=== PATIENT | male | born 1950 | race Caucasian/White ===

== ENCOUNTER 2018-05-10 04:16 | Inpatient (IN) | payer MEDICARE, OTHER ==
[~2018-05-10] VITALS: Ht 190.5 cm; Wt 89.0 kg
[~2018-05-10 04:16] MED LIST: OMEP20TA63 PO
[2018-05-10] MEDS ORDERED: ONDANSETRON PF 4 MG/2 ML VIAL. ONE (04:42)
[2018-05-10 05:04] LABS: BASO # 0.1 x10^3/uL (0.0-0.2); BASO % 0 % (0-3); EOS % 0 % (0-3); HEMATOCRIT 44.7 % (39.0-53.0); HEMOGLOBIN 15.6 g/dL (13.0-17.5); LYMPH # 1.2 x10^3/uL (1.0-4.8); LYMPH % 8 % (24-48); MEAN CORPUSCULAR HEMOGLOBIN 31 pg (25-35); MEAN CORPUSCULAR HGB CONC 35 g/dL (31-37); MEAN CORPUSCULAR VOLUME 90 fL (79-100); MONO # 0.6 x10^3/uL (0.0-1.1); MONO % 4 % (0-9); NEUT # 13.5 x10^3uL (1.8-7.7); NEUT % 88 % (31-73); PLATELET COUNT 293 x10^3/uL (140-400); RED BLOOD COUNT 4.99 x10^6/uL (4.30-5.70); RED CELL DISTRIBUTION WIDTH 14.9 % (11.5-14.5); WHITE BLOOD COUNT 15.4 x10^3/uL (4.0-11.0)
[2018-05-10] MEDS ORDERED: IOHEXOL 300 MG/ML 100ML VIAL. IV ONE (05:15)
[2018-05-10] MEDS ORDERED: CONTRAST GIVEN. MC PRN (05:15)
[2018-05-10] MEDS ORDERED: MORPHINE SULFATE 10 MG/ML VIAL. IV ONE (05:15)
[2018-05-10 05:23] LABS: % BANDS 1 % (0-9); % LYMPHS 11 % (24-48); % METAS 1 % (0-0); % MONOS 2 % (0-10); % SEGS 85 % (35-66); PLT ESTIMATE ADEQUATE (ADEQUATE)
[2018-05-10 05:41] LABS: CALCIUM 10.4 mg/dL (8.5-10.1); CREATININE 1.2 mg/dL (0.7-1.3); GFR 60.4; POTASSIUM 4.4 mmol/L (3.5-5.1)
[2018-05-10] MEDS ORDERED: ONDANSETRON PF 4 MG/2 ML VIAL. IV ONE (05:45)
[2018-05-10] MEDS ORDERED: IV NORMAL SALINE 1000ML BAG 1,000 ML IV ONE (05:45)
[2018-05-10 05:47] LABS: ALBUMIN 4.6 g/dL (3.4-5.0); DIRECT BILIRUBIN 0.1 mg/dL (0.0-0.2); TOTAL BILIRUBIN 0.4 mg/dL (0.2-1.0); TOTAL PROTEIN 8.7 g/dL (6.4-8.2)
--- NOTE | 2018-05-10 05:56 | PHYS DOC ---
Past Medical History Past Medical History: High Cholesterol, Hypertension Additional Past Medical Histor: stomach ulcer, poor historian Past Surgical History: Hip Replacement, Tonsillectomy Additional Past Surgical Histo: stomach ulcer Additional Information: 15 CIGARETTES PER DAY Alcohol Use: Heavy Additional Information: 3-4 XWEEK Drug Use: None Adult General Chief Complaint Chief Complaint: NAUSEA/VOMITING/DIARRHA HPI HPI Patient is a 67 year old male who presents with abdominal pain. Patient had onset of abdominal pain yesterday. He complains of diffuse pain and some abdominal swelling. He had onset of nausea and vomiting over the last 12 hours. He relates to numerous episodes of emesis to count. He describes emesis to be yellow. He denies hematemesis. Patient does have prior history of surgery for a perforated ulcer. He denies a history been drinking alcohol. He has not had a fever or chills. He has no constipation. He denies urinary symptoms. Patient also complains that he has been diaphoretic. He denies chest pain or shortness of breath. Review of Systems Review of Systems Constitutional: Denies fever Eyes: Denies HENT: Denies nasal congestion or sore throat Respiratory: Denies cough or shortness of breath Cardiovascular: No additional information not addressed in HPI GI: as documented above : Denies dysuria Musculoskeletal: Denies back pain Integument: Denies rash or skin lesions Neurologic: Denies headache All other systems were reviewed and found to be within normal limits, except as documented in this note. Current Medications Current Medications Current Medications Medications (Trade) Dose Ordered Sig/Lio Start Time Stop Time Status Last Admin Dose Admin Azithromycin (Zithromax) 500 mg 1X ONCE 05/10/18 08:30 05/10/18 08:38 DC 05/10/18 09:13 500 MG Ceftriaxone Sodium 1 gm/ Dextrose 50 ml @ 100 mls/hr Q24H 05/10/18 08:30 UNV Ceftriaxone Sodium 50 ml @ 100 mls/hr 1X ONCE 05/10/18 09:00 05/10/18 09:29 Cephalexin HCl (Keflex) 500 mg ONCE ONCE 05/10/18 08:15 05/10/18 08:16 DC 05/10/18 09:13 500 MG Info (CONTRAST GIVEN -- Rx MONITORING) 1 each PRN DAILY PRN 05/10/18 05:15 05/12/18 05:14 Iohexol (Omnipaque 300 Mg/ml) 75 ml 1X ONCE 05/10/18 05:15 05/10/18 05:16 DC 05/10/18 05:15 75 ML Morphine Sulfate (Morphine Sulfate) 6 mg 1X ONCE 05/10/18 05:15 05/10/18 05:16 DC 05/10/18 05:38 6 MG Ondansetron HCl (Zofran) 4 mg 1X ONCE 05/10/18 05:45 05/10/18 05:54 DC 05/10/18 05:44 4 MG Promethazine HCl (Phenergan) 25 mg 1X ONCE 05/10/18 07:30 05/10/18 07:34 DC 05/10/18 07:41 25 MG Sodium Chloride 1,000 ml @ 1,000 mls/hr 1X ONCE 05/10/18 05:45 05/10/18 06:45 DC 05/10/18 05:44 1,000 MLS/HR Tamsulosin HCl (Flomax) 0.4 mg 1X ONCE 05/10/18 08:15 05/10/18 08:16 DC Allergies Allergies Allergies Coded Allergies Type Severity Reaction Last Updated Verified No Known Drug Allergies 02/24/15 No Physical Exam Physical Exam Constitutional: Well developed, well nourished, no acute distress, ill- appearing and diaphoretic HENT: Normocephalic, atraumatic, bilateral external ears normal Eyes: PERRLA, EOMI, conjunctiva normal Neck: Normal range of motion, no tenderness Cardiovascular:Heart rate regular rhythm, no murmur Lungs & Thorax: Bilateral breath sounds clear to auscultation Abdomen: diffusely tender with some guarding, mildly distended Skin: pale, cool, moist Extremities: No edema Neurologic: Alert and oriented X 3 Psychologic: Affect normal Current Patient Data Vital Signs Vital Signs Date Time Temp Pulse Resp B/P (MAP) Pulse Ox O2 Delivery O2 Flow Rate FiO2 05/10/18 05:38 20 92 Room Air 05/10/18 04:53 97.8 85 166/92 (116) 97.8 Lab Values Laboratory Tests Test 05/10/18 04:28 05/10/18 06:46 White Blood Count 15.4 x10^3/uL (4.0-11.0) H Red Blood Count 4.99 x10^6/uL (4.30-5.70) Hemoglobin 15.6 g/dL (13.0-17.5) Hematocrit 44.7 % (39.0-53.0) Mean Corpuscular Volume 90 fL (79-100) Mean Corpuscular Hemoglobin 31 pg (25-35) Mean Corpuscular Hemoglobin Concent 35 g/dL (31-37) Red Cell Distribution Width 14.9 % (11.5-14.5) H Platelet Count 293 x10^3/uL (140-400) Neutrophils (%) (Auto) 88 % (31-73) H Lymphocytes (%) (Auto) 8 % (24-48) L Monocytes (%) (Auto) 4 % (0-9) Eosinophils (%) (Auto) 0 % (0-3) Basophils (%) (Auto) 0 % (0-3) Neutrophils # (Auto) 13.5 x10^3uL (1.8-7.7) H Lymphocytes # (Auto) 1.2 x10^3/uL (1.0-4.8) Monocytes # (Auto) 0.6 x10^3/uL (0.0-1.1) Eosinophils # (Auto) 0.0 x10^3/uL (0.0-0.7) Basophils # (Auto) 0.1 x10^3/uL (0.0-0.2) Segmented Neutrophils % 85 % (35-66) H Band Neutrophils % 1 % (0-9) Lymphocytes % 11 % (24-48) L Monocytes % 2 % (0-10) Metamyelocytes % 1 % (0-0) H Platelet Estimate Adequate (ADEQUATE) Sodium Level 144 mmol/L (136-145) Potassium Level 4.4 mmol/L (3.5-5.1) Chloride Level 102 mmol/L (98-107) Carbon Dioxide Level 20 mmol/L (21-32) L Anion Gap 22 (6-14) H Blood Urea Nitrogen 13 mg/dL (8-26) Creatinine 1.2 mg/dL (0.7-1.3) Estimated GFR (Cockcroft-Gault) 60.4 Glucose Level 149 mg/dL (70-99) H Calcium Level 10.4 mg/dL (8.5-10.1) H Total Bilirubin 0.4 mg/dL (0.2-1.0) Direct Bilirubin 0.1 mg/dL (0.0-0.2) Aspartate Amino Transferase (AST) 17 U/L (15-37) Alanine Aminotransferase (ALT) 23 U/L (16-63) Alkaline Phosphatase 139 U/L (46-116) H Troponin I Quantitative < 0.017 ng/mL (0.000-0.055) Total Protein 8.7 g/dL (6.4-8.2) H Albumin 4.6 g/dL (3.4-5.0) Lipase 107 U/L (73-393) Urine Color Yellow Urine Clarity Clear Urine pH 6.0 Urine Specific [place] 1.010 Urine Protein Negative mg/dL (NEG-TRACE) Urine Glucose (UA) Negative mg/dL (NEG) Urine Ketones (Stick) Negative mg/dL (NEG) Urine Blood Negative (NEG) Urine Nitrite Negative (NEG) Urine Bilirubin Negative (NEG) Urine Urobilinogen Dipstick 0.2 mg/dL (0.2 mg/dL) Urine Leukocyte Esterase Negative (NEG) Urine RBC Occ /HPF (0-2) Urine WBC Rare /HPF (0-4) Urine Squamous Epithelial Cells Few /LPF Urine Bacteria 0 /HPF (0-FEW) Laboratory Tests 05/10/18 04:28 Laboratory Tests 05/10/18 04:28 EKG EKG No STEMI Interpretation Time: 05:10 Radiology/Procedures Radiology/Procedures FINDINGS: Linear airspace opacity identified in the right middle lobe, right lower lobe lung likely atelectasis or infiltrates. No evidence of free air identified in the abdomen. The visualized liver, adrenals grossly appears unremarkable. Calcified granulomas identified in the spleen. There is mild elevation of the right hemidiaphragm. The gallbladder is mildly distended. The stomach is mildly distended. The visualized pancreas grossly appears unremarkable. The small bowel is nondilated. Appendix is normal. Feces and gas noted in the colon. Urinary bladder is moderately distended. The bilateral kidneys enhance symmetrically. Mild fat stranding identified about the bilateral kidneys. Cortical calcifications identified in the left kidney measuring 8 mm. No evidence of hydronephrosis. There is a 8.5 mm hypodensity identified in the left kidney measuring 11 Hounsfield units probably a cyst. Moderate aortic atherosclerosis. Right femoral hardware identified. Mild degenerative changes lumbar spine. Coronary artery calcifications. IMPRESSION: 1. Minimal bilateral perinephric fat stranding could be due to medical renal disease or urinary tract infection. 2. Moderate distended urinary bladder. Course & Med Decision Making Course & Med Decision Making Pertinent Labs and Imaging studies reviewed. (See chart for details) 05:00: Patient is seen and examined. He has a history of perforated ulcer and surgical repair. He denies hematemesis or melena or hematochezia today. His symptoms started yesterday. Medications are ordered for symptom relief. IV fluids. CT scan of the abdomen pelvis. 06:45: WBC mildly elevated. UA pending. CT scan documented above. US of right UQ ordered. Transfer of care to Dr. Anderson. Oswald Montes, Productive cough, sweats and intermittent abdominal pain. Tx for CAP. Will admit. Tabitha Disclaimer Tabitha Disclaimer This electronic medical record was generated, in whole or in part, using a voice recognition dictation system. Departure Departure Referrals: NO PCP (PCP) ANIL MONTES DO May 10, 2018 05:56 EREN ANDERSON DO May 10, 2018 09:21
--- NOTE | 2018-05-10 06:25 | RAD ---
Examination: CT of the abdomen pelvis with IV contrast HISTORY: History of generalized abdominal pain COMPARISON: None available TECHNIQUE: Axial CT images of the abdomen pelvis were performed with IV contrast. Coronal and sagittal reformats are performed FINDINGS: Linear airspace opacity identified in the right middle lobe, right lower lobe lung likely atelectasis or infiltrates. No evidence of free air identified in the abdomen. The visualized liver, adrenals grossly appears unremarkable. Calcified granulomas identified in the spleen. There is mild elevation of the right hemidiaphragm. The gallbladder is mildly distended. The stomach is mildly distended. The visualized pancreas grossly appears unremarkable. The small bowel is nondilated. Appendix is normal. Feces and gas noted in the colon. Urinary bladder is moderately distended. The bilateral kidneys enhance symmetrically. Mild fat stranding identified about the bilateral kidneys. Cortical calcifications identified in the left kidney measuring 8 mm. No evidence of hydronephrosis. There is a 8.5 mm hypodensity identified in the left kidney measuring 11 Hounsfield units probably a cyst. Moderate aortic atherosclerosis. Right femoral hardware identified. Mild degenerative changes lumbar spine. Coronary artery calcifications. IMPRESSION: 1. Minimal bilateral perinephric fat stranding could be due to medical renal disease or urinary tract infection. 2. Moderate distended urinary bladder. Electronically signed by: Kalia Humphries MD (05/10/2018 6:22 AM) [id number]
[2018-05-10 07:04] LABS: BILIRUBIN,URINE NEGATIVE (NEG); CLARITY,URINE CLEAR; COLOR,URINE YELLOW; NITRITE,URINE NEGATIVE (NEG); PROTEIN,URINE NEGATIVE (NEG-TRACE); UROBILINOGEN,URINE 0.2 mg/dL (0.2 mg/dL)
[2018-05-10 07:23] LABS: BACTERIA,URINE 0 /HPF (0-FEW); RBC,URINE OCC /HPF (0-2); SQUAMOUS EPITHELIAL CELL,UR FEW /LPF; WBC,URINE RARE /HPF (0-4)
[2018-05-10] MEDS ORDERED: PROMETHAZINE 12.5 MG TABLET. PO ONE (07:30)
--- NOTE | 2018-05-10 07:53 | RAD ---
ABDOMEN LTD History: Right upper quadrant pain and nausea Comparison: None. Findings: Multiple sonographic images of the abdomen are submitted. Pancreas is not well-visualized due to bowel gas. Gallbladder is present without demonstrable intraluminal abnormality, wall thickening, pericholecystic fluid. Right kidney measured 10.8 x 6.4 x 6 cm, no hydronephrosis. Evaluation of the liver parenchyma is somewhat limited due to bowel gas, no focal hepatic lesion demonstrated. Hepatic echotexture is probably within normal limits. Common bile duct is within normal limits about 0.4 cm. Inferior vena cava is obscured by bowel gas. Impression: 1. No significant abnormality is demonstrated, somewhat limited evaluation due to bowel gas with poor visualization of the midline structures and liver parenchyma. Electronically signed by: Eh Apple MD (05/10/2018 7:49 AM) [id number]
[2018-05-10] MEDS ORDERED: TAMSULOSIN 0.4 MG CAP.ER.24H. PO ONE (08:15)
[2018-05-10] MEDS ORDERED: CEPHALEXIN 250 MG CAPSULE. PO ONE (08:15)
[2018-05-10] MEDS ORDERED: AZITHROMYCIN 250 MG TABLET. PO ONE (08:30)
--- NOTE | 2018-05-10 09:05 | RAD ---
EXAM: CHEST AP ONLY DATE: 05/10/2018 8:34 AM INDICATION: COUGH, PT SWEATING X1 DAY COMPARISON: 10/31/15 FINDINGS: The heart is not enlarged. Mediastinal and hilar contours are normal. Atherosclerotic calcifications of aorta are seen. Patchy opacities in the lung bases likely atelectasis. Multilevel costophrenic angle likely trace pleural effusion. No pneumothorax. IMPRESSION: Patchy lung base opacities likely atelectasis. Electronically signed by: Mat Lockhart MD (05/10/2018 9:02 AM) [facility]
[2018-05-10] MEDS ORDERED: IPRATRPIUM/ALBUTEROL 0.5/2.5MG 3 ML NEBU. NEB SCH (12:00)
[2018-05-10] MEDS ORDERED: GUAI237L83 PO (12:38)
[2018-05-10] MEDS ORDERED: NALT50TA PO (12:38)
[2018-05-10] MEDS ORDERED: DICL100G18 TP (12:38)
[2018-05-10] MEDS ORDERED: DULO60CA6 PO (12:38)
[2018-05-10] MEDS ORDERED: GABA600T2 PO (12:38)
[2018-05-10] MEDS ORDERED: VENTOLIN HFA18 GM INH (12:38)
[2018-05-10] MEDS ORDERED: MAGN400T22 PO (12:38)
[2018-05-10] MEDS ORDERED: QUET200T4 PO (12:38)
[2018-05-10] MEDS ORDERED: OMEP20CA9 PO (12:38)
[2018-05-10] MEDS ORDERED: ATORVASTATIN CA80 MG PO (12:38)
[2018-05-10] MEDS ORDERED: CYAN10005 PO (12:38)
[2018-05-10] MEDS ORDERED: QUET50TA PO (12:38)
[2018-05-10] MEDS ORDERED: LISI-334 PO (12:38)
[2018-05-10] MEDS ORDERED: MULT-658 PO (12:38)
[2018-05-10] MEDS ORDERED: ACET325T9 PO (12:38)
[2018-05-10] MEDS ORDERED: QUET100T PO (12:43)
[2018-05-10] MEDS ORDERED: guaiFENesin DM 200MG/20MG 10 ML SYRUP PO PRN ×2 (13:00)
[2018-05-10] MEDS ORDERED: ACETAMINOPHEN 325 MG TABLET. PO PRN (13:00)
[2018-05-10] MEDS ORDERED: ONDANSETRON ODT 4 MG TAB.RAPDIS. PO PRN (13:00)
[2018-05-10] MEDS: DULoxetine HCL 30 MG CAPSULE.DR PO SCH (13:53)
[2018-05-10] MEDS: GABAPENTIN 300 MG CAPSULE. PO SCH ×2 (13:53→20:38)
[2018-05-10] MEDS: QUEtiapine 25 MG TABLET. PO SCH (13:53)
[2018-05-10] MEDS: MAGNESIUM OXIDE 400 MG TABLET PO SCH ×2 (13:54→20:38)
[2018-05-10] MEDS: oxyCODONE/APAP 5/325 1 TAB TABLET PO PRN ×2 (13:54→20:40)
[2018-05-10] MEDS: CYANOCOBALAMIN (VITAMIN B-12) 1,000 MCG TABLET. PO SCH (13:54)
[2018-05-10] MEDS: LISINOPRIL 20 MG TABLET PO SCH (13:54)
[2018-05-10] MEDS: IV NORMAL SALINE 1000ML BAG 1,000 ML IV SCH ×2 (13:55→20:37)
--- NOTE | 2018-05-10 14:27 | PDOC1 ---
History and Physical Date of Admission Date of Admission DATE: 05/10/18 TIME: 14:20 Identification/Chief Complaint Chief Complaint abd pain Source Source: Chart review, Patient History of Present Illness History of Present Illness Mr. Eldridge is a 67 year old male admit with acute nausea and abdominal pain. Mod pain started yesterday, and has become more severe. He complains of diffuse pain and some abdominal swelling. He had 3 bourbon drinks and a few beers last night, neisha this AM then he had nausea and vomiting over the last 12 hours. Yellow emesis, no blood. Patient also complains that he has been diaphoretic. He denies chest pain or shortness of breath. Past Medical History GI: GERD, Peptic Ulcer disease Psych: Addictions Past Surgical History Past Surgical History: Other Family History Family History: Hypertension Social History Smoke: <1 pack per day ALCOHOL: heavy Drugs: None Current Problem List Problem List Problems Medical Problems: (1) Distended bladder Status: Acute Current Medications Current Medications Current Medications Ondansetron HCl (Zofran) 4 mg STK-MED ONCE .ROUTE ; Start 05/10/18 at 04:42; Stop 05/10/18 at 04:43; Status DC Morphine Sulfate (Morphine Sulfate) 6 mg 1X ONCE IV Last administered on at 05:38; Start 05/10/18 at 05:15; Stop 05/10/18 at 05:16; Status DC Iohexol (Omnipaque 300 Mg/ml) 75 ml 1X ONCE IV Last administered on 05/10/18at 05:15; Start 05/10/18 at 05:15; Stop 05/10/18 at 05:16; Status DC Info (CONTRAST GIVEN -- Rx MONITORING) 1 each PRN DAILY PRN MC SEE COMMENTS; Start 05/10/18 at 05:15; Stop 05/12/18 at 05:14 Ondansetron HCl (Zofran) 4 mg 1X ONCE IV Last administered on 05/10/18at 05:44 ; Start 05/10/18 at 05:45; Stop 05/10/18 at 05:54; Status DC Sodium Chloride 1,000 ml @ 1,000 mls/hr 1X ONCE IV Last administered on at 05:44; Start 05/10/18 at 05:45; Stop 05/10/18 at 06:45; Status DC Promethazine HCl (Phenergan) 25 mg 1X ONCE PO Last administered on 05/10/18at 07:41; Start 05/10/18 at 07:30; Stop 05/10/18 at 07:34; Status DC Cephalexin HCl (Keflex) 500 mg ONCE ONCE PO Last administered on 05/10/18at 09: 13; Start 05/10/18 at 08:15; Stop 05/10/18 at 08:16; Status DC Tamsulosin HCl (Flomax) 0.4 mg 1X ONCE PO Last administered on 05/10/18at 10:39 ; Start 05/10/18 at 08:15; Stop 05/10/18 at 08:16; Status DC Ceftriaxone Sodium 1 gm/ Dextrose 50 ml @ 100 mls/hr Q24H IV ; Start 05/10/18 at 08:30; Status UNV Azithromycin (Zithromax) 500 mg 1X ONCE PO Last administered on 05/10/18at 09: 13; Start 05/10/18 at 08:30; Stop 05/10/18 at 08:38; Status DC Ceftriaxone Sodium 50 ml @ 100 mls/hr 1X ONCE IV Last administered on at 09:16; Start 05/10/18 at 09:00; Stop 05/10/18 at 09:29; Status DC Sodium Chloride 1,000 ml @ 125 mls/hr Q8H IV Last administered on 05/10/18at 13 :55; Start 05/10/18 at 09:13; Stop 05/11/18 at 09:12 Albuterol/ Ipratropium (Duoneb) 3 ml RTQID NEB Last administered on 05/10/18at 11:34; Start 05/10/18 at 12:00; Stop 05/10/18 at 13:00; Status DC Ceftriaxone Sodium (Rocephin) 1 gm Q24H IVP ; Start 05/11/18 at 09:00 Ondansetron HCl (Zofran Odt) 4 mg PRN Q8HRS PRN PO NAUSEA/VOMITING 1ST CHOICE Last administered on 05/10/18at 13:55; Start 05/10/18 at 13:00 Oxycodone/ Acetaminophen (Percocet 5/325) 1 tab PRN Q4HRS PRN PO PAIN MODERATE TO SEVERE Last administered on 05/10/18at 13:54; Start 05/10/18 at 13:00 Acetaminophen (Tylenol) 650 mg PRN Q4HRS PRN PO MILD PAIN / TEMP; Start at 13:00 Cyanocobalamin (Vitamin B-12) 1,000 mcg DAILY PO Last administered on at 13:54; Start 05/10/18 at 14:00 Lisinopril (Prinivil) 20 mg DAILY PO Last administered on 05/10/18at 13:54; Start 05/10/18 at 14:00 Albuterol Sulfate (Ventolin Neb Soln) 2.5 mg Q4HRS NEB ; Start 05/10/18 at 16:00 Atorvastatin Calcium (Lipitor) 80 mg QHS PO ; Start 05/10/18 at 21:00 Duloxetine HCl (Cymbalta) 60 mg DAILY PO Last administered on 05/10/18at 13:53; Start 05/10/18 at 14:00 Gabapentin (Neurontin) 600 mg TID PO Last administered on 05/10/18at 13:53; Start 05/10/18 at 14:00 Guaifenesin (Robitussin Dm) 10 ml PRN Q6HRS PRN PO COUGH; Start 05/10/18 at 13: 00; Stop 05/10/18 at 13:00; Status DC Magnesium Oxide (Magnesium Oxide) 400 mg BID PO Last administered on 05/10/18at 13:54; Start 05/10/18 at 14:00 Pantoprazole Sodium (Protonix) 40 mg QHS PO ; Start 05/10/18 at 21:00 Quetiapine Fumarate (SEROquel) 50 mg BID92 PO Last administered on 05/10/18at 13 :53; Start 05/10/18 at 14:00 Quetiapine Fumarate (SEROquel) 150 mg QHS PO ; Start 05/10/18 at 21:00 Guaifenesin (Robitussin Dm) 5 ml PRN Q6HRS PRN PO COUGH; Start 05/10/18 at 13: 00 Lactobacillus Rhamnosus (Culturelle) 1 cap BID PO ; Start 05/10/18 at 21:00 Active Scripts Active Reported Quetiapine Fumarate 100 Mg Tablet 150 Mg PO HS Ventolin Hfa Inhaler (Albuterol Sulfate) 18 Gm Hfa.aer.ad 2 Puff INH Q4HRS Robitussin Cough-Chest Dm Liq (Guaifenesin/Dextromethorphan) 237 Ml Liquid 5 Ml PO PRN Q6-8HRS PRN Tylenol (Acetaminophen) 325 Mg Tablet 2 Tab PO PRN Q4HRS Vitamin B-12 (Cyanocobalamin (Vitamin B-12)) 1,000 Mcg Tablet 1 Tab PO DAILY Quetiapine Fumarate 50 Mg Tablet 50 Mg PO BID Omeprazole 20 Mg Capsule.dr 1 Cap PO HS Naltrexone Hcl 50 Mg Tablet 1 Tab PO DAILY Mag-Oxide (Magnesium Oxide) 400 Mg Tablet 1 Tab PO BID Lisinopril 20 Mg Tablet 1 Tab PO DAILY Gabapentin 600 Mg Tablet 600 Mg PO TID Cymbalta (Duloxetine Hcl) 60 Mg Capsule.dr 1 Cap PO DAILY Voltaren (Diclofenac Sodium) 100 Gm Gel..gram. 4 Gm TP QID Centrum Silver Tablet (Multivits-Min/Fa/Lycopene/Lut) 1 Each Tablet 1 Each PO DAILY Atorvastatin Calcium 80 Mg Tablet 1 Tab PO HS Prilosec Otc (Omeprazole Magnesium) 20 Mg Tablet.dr 1 Tab PO DAILY Allergies Allergies: Coded Allergies: No Known Drug Allergies (Unverified , 02/24/15) ROS General: YES: Chills, Fatigue, Malaise; No: Night Sweats, Appetite, Other PSYCHOLOGICAL ROS: No: Anxiety, Behavioral Disorder, Concentration difficultie , Decreased libido, Depression, Disorientation, Hallucinations, Hostility, Irritablity, Memory difficulties, Mood Swings, Obsessive thoughts, Physical abuse, Sexual abuse, Sleep disturbances, Suicidal ideation, Other Eyes: No Blurry vision, No Decreased vision, No Double vision, No Dry eyes, No Excessive tearing, No Eye Pain, No Itchy Eyes, No Loss of vision, No Photophobia , No Scotomata, No Uses contacts, No Uses glasses, No Other HEENT: No: Heacaches, Visual Changes, Hearing change, Nasal congestion, Nasal discharge, Oral lesions, Sinus pain, Sore Throat, Epistaxis, Sneezing, Snoring, Tinnitus, Vertigo, Vocal changes, Other Respiratory: YES: Cough; No: Hemoptysis, Orthopnea, Pleuritic Pain, Shortness of breath, SOB with excertion, Sputum Changes, Stridor, Tachypnea, Wheezing, Other Cardiovascular: No Chest Pain, No Palpitations, No Orthopnea, No Paroxysmal Noc. Dyspnea, No Edema, No Lt Headedness, No Other Gastrointestinal: Yes Nausea, Yes Abdominal Pain Genitourinary: No Dysuria, No Frequency, No Incontinence, No Hematuria, No Retention, No Discharge, No Urgency, No Pain, No Flank Pain, No Other, No , No , No , No , No , No , No Musculoskeletal: Yes Joint Stiffness; No Gait Disturbance, No Joint Pain, No Joint Swelling, No Muscle Pain, No Muscular Weakness, No Pain In:, No Swelling In:, No Other Neurological: No Behavorial Changes, No Bowel/Bladder ControlChng, No Confusion , No Dizziness, No Gait Disturbance, No Headaches, No Impaired Coord/balance, No Memory Loss, No Numbness/Tingling, No Seizures, No Speech Problems, No Tremors, No Visual Changes, No Weakness, No Other Skin: Yes Dry Skin Physical Exam General: Alert, Cooperative, mild distress HEENT: Atraumatic, PERRLA Lungs: Clear to auscultation, Normal air movement Heart: S1S2, RRR, no gallops, no murmurs Abdomen: Other (hypoactive sounds, diffuse tender to palpation, no guarding, no rebound, some referred from other side pain, no peritoneal sign) Rectal Exam: not examined Extremities: No cyanosis, Normal pulses Skin: No rashes, No significant lesion Neuro: Sensation intact Psych/Mental Status: Mental status NL, Mood NL Vitals Vitals Vital Signs Date Time Temp Pulse Resp B/P (MAP) Pulse Ox O2 Delivery O2 Flow Rate FiO2 05/10/18 13:54 85 166/92 05/10/18 13:54 20 94 Room Air 05/10/18 04:53 97.8 97.8 Labs Labs Laboratory Tests Test 05/10/18 04:28 05/10/18 06:46 White Blood Count 15.4 x10^3/uL (4.0-11.0) Red Blood Count 4.99 x10^6/uL (4.30-5.70) Hemoglobin 15.6 g/dL (13.0-17.5) Hematocrit 44.7 % (39.0-53.0) Mean Corpuscular Volume 90 fL (79-100) Mean Corpuscular Hemoglobin 31 pg (25-35) Mean Corpuscular Hemoglobin Concent 35 g/dL (31-37) Red Cell Distribution Width 14.9 % (11.5-14.5) Platelet Count 293 x10^3/uL (140-400) Neutrophils (%) (Auto) 88 % (31-73) Lymphocytes (%) (Auto) 8 % (24-48) Monocytes (%) (Auto) 4 % (0-9) Eosinophils (%) (Auto) 0 % (0-3) Basophils (%) (Auto) 0 % (0-3) Neutrophils # (Auto) 13.5 x10^3uL (1.8-7.7) Lymphocytes # (Auto) 1.2 x10^3/uL (1.0-4.8) Monocytes # (Auto) 0.6 x10^3/uL (0.0-1.1) Eosinophils # (Auto) 0.0 x10^3/uL (0.0-0.7) Basophils # (Auto) 0.1 x10^3/uL (0.0-0.2) Segmented Neutrophils % 85 % (35-66) Band Neutrophils % 1 % (0-9) Lymphocytes % 11 % (24-48) Monocytes % 2 % (0-10) Metamyelocytes % 1 % (0-0) Platelet Estimate Adequate (ADEQUATE) Sodium Level 144 mmol/L (136-145) Potassium Level 4.4 mmol/L (3.5-5.1) Chloride Level 102 mmol/L (98-107) Carbon Dioxide Level 20 mmol/L (21-32) Anion Gap 22 (6-14) Blood Urea Nitrogen 13 mg/dL (8-26) Creatinine 1.2 mg/dL (0.7-1.3) Estimated GFR (Cockcroft-Gault) 60.4 Glucose Level 149 mg/dL (70-99) Calcium Level 10.4 mg/dL (8.5-10.1) Total Bilirubin 0.4 mg/dL (0.2-1.0) Direct Bilirubin 0.1 mg/dL (0.0-0.2) Aspartate Amino Transf (AST/SGOT) 17 U/L (15-37) Alanine Aminotransferase (ALT/SGPT) 23 U/L (16-63) Alkaline Phosphatase 139 U/L (46-116) Troponin I Quantitative < 0.017 ng/mL (0.000-0.055) Total Protein 8.7 g/dL (6.4-8.2) Albumin 4.6 g/dL (3.4-5.0) Lipase 107 U/L (73-393) Urine Color Yellow Urine Clarity Clear Urine pH 6.0 Urine Specific [place] 1.010 Urine Protein Negative mg/dL (NEG-TRACE) Urine Glucose (UA) Negative mg/dL (NEG) Urine Ketones (Stick) Negative mg/dL (NEG) Urine Blood Negative (NEG) Urine Nitrite Negative (NEG) Urine Bilirubin Negative (NEG) Urine Urobilinogen Dipstick 0.2 mg/dL (0.2 mg/dL) Urine Leukocyte Esterase Negative (NEG) Urine RBC Occ /HPF (0-2) Urine WBC Rare /HPF (0-4) Urine Squamous Epithelial Cells Few /LPF Urine Bacteria 0 /HPF (0-FEW) Laboratory Tests Test 05/10/18 04:28 05/10/18 06:46 White Blood Count 15.4 x10^3/uL (4.0-11.0) Red Blood Count 4.99 x10^6/uL (4.30-5.70) Hemoglobin 15.6 g/dL (13.0-17.5) Hematocrit 44.7 % (39.0-53.0) Mean Corpuscular Volume 90 fL (79-100) Mean Corpuscular Hemoglobin 31 pg (25-35) Mean Corpuscular Hemoglobin Concent 35 g/dL (31-37) Red Cell Distribution Width 14.9 % (11.5-14.5) Platelet Count 293 x10^3/uL (140-400) Neutrophils (%) (Auto) 88 % (31-73) Lymphocytes (%) (Auto) 8 % (24-48) Monocytes (%) (Auto) 4 % (0-9) Eosinophils (%) (Auto) 0 % (0-3) Basophils (%) (Auto) 0 % (0-3) Neutrophils # (Auto) 13.5 x10^3uL (1.8-7.7) Lymphocytes # (Auto) 1.2 x10^3/uL (1.0-4.8) Monocytes # (Auto) 0.6 x10^3/uL (0.0-1.1) Eosinophils # (Auto) 0.0 x10^3/uL (0.0-0.7) Basophils # (Auto) 0.1 x10^3/uL (0.0-0.2) Segmented Neutrophils % 85 % (35-66) Band Neutrophils % 1 % (0-9) Lymphocytes % 11 % (24-48) Monocytes % 2 % (0-10) Metamyelocytes % 1 % (0-0) Platelet Estimate Adequate (ADEQUATE) Sodium Level 144 mmol/L (136-145) Potassium Level 4.4 mmol/L (3.5-5.1) Chloride Level 102 mmol/L (98-107) Carbon Dioxide Level 20 mmol/L (21-32) Anion Gap 22 (6-14) Blood Urea Nitrogen 13 mg/dL (8-26) Creatinine 1.2 mg/dL (0.7-1.3) Estimated GFR (Cockcroft-Gault) 60.4 Glucose Level 149 mg/dL (70-99) Calcium Level 10.4 mg/dL (8.5-10.1) Total Bilirubin 0.4 mg/dL (0.2-1.0) Direct Bilirubin 0.1 mg/dL (0.0-0.2) Aspartate Amino Transf (AST/SGOT) 17 U/L (15-37) Alanine Aminotransferase (ALT/SGPT) 23 U/L (16-63) Alkaline Phosphatase 139 U/L (46-116) Troponin I Quantitative < 0.017 ng/mL (0.000-0.055) Total Protein 8.7 g/dL (6.4-8.2) Albumin 4.6 g/dL (3.4-5.0) Lipase 107 U/L (73-393) Urine Color Yellow Urine Clarity Clear Urine pH 6.0 Urine Specific [place] 1.010 Urine Protein Negative mg/dL (NEG-TRACE) Urine Glucose (UA) Negative mg/dL (NEG) Urine Ketones (Stick) Negative mg/dL (NEG) Urine Blood Negative (NEG) Urine Nitrite Negative (NEG) Urine Bilirubin Negative (NEG) Urine Urobilinogen Dipstick 0.2 mg/dL (0.2 mg/dL) Urine Leukocyte Esterase Negative (NEG) Urine RBC Occ /HPF (0-2) Urine WBC Rare /HPF (0-4) Urine Squamous Epithelial Cells Few /LPF Urine Bacteria 0 /HPF (0-FEW) VTE Prophylaxis Ordered VTE Prophylaxis Devices: Yes VTE Pharmacological Prophylaxi: No Assessment/Plan Assessment/Plan acute abdominal pain with nausea, vomiting leukocytosis, tachycardia, SIRS, w/o organ dys. Abx started in ER, CXR looks more like atelectasis on report GERD, poss poor control or new ulcer, will make PPI to BID, may benefit from EGD, tobacco use disorder EtOH use yesteday EMELI DUEÑAS MD May 10, 2018 14:27
[2018-05-10] MEDS ORDERED: NICOTINE 14MG PATCH. TD PRN (14:30)
[2018-05-10] MEDS ORDERED: ONDANSETRON PF 4 MG/2 ML VIAL. IV PRN (14:45)
[2018-05-10 14:58] LABS: BARBITURATES NEG (NEG); BENZODIAZEPINES NEG (NEG); CANNABINOIDS NEG (NEG); COCAINE NEG (NEG); METHADONE NEG (NEG); OPIATES NEG (NEG); PHENCYCLIDINE NEG (NEG)
[2018-05-10 15:00] VITALS: BP 144/62
[2018-05-10 15:00] LABS: AMPHETAMINE/METHAMPHETAMINE NEG (NEG)
[2018-05-10] MEDS: ALBUTEROL SULFATE 2.5 MG/3 ML NEBU. NEB SCH ×2 (15:14→20:03)
--- NOTE | 2018-05-10 15:14 | PDOC2 ---
CONSULT Date of Consult Date of Consult DATE: 05/10/18 TIME: 15:05 Reason for Consult Reason for Consult: nausea, vomiting, upper abd pain History of Present Illness Reason for Visit: 67 yo male with history of perf ulcer in 1986 with surgery to repair- since then, has had intermittant episodes of abd pain with n/v, no clear pattern- he describes and EGD at [facility] about a year ago- with ulcer in small intestine and similar symptoms then as well. CT and US are negative for other significant GI pathology. Denies fever but had sweats last night, no bleeding, hematemesis, rectal bleeding and no constipation or diarrhea. No prior colonoscopy. History of pneumonia but presently DENIES SOA, cough etc Past Medical History Pulmonary: Pneumonia GI: GERD, Peptic Ulcer disease Psych: Addictions Past Surgical History Past Surgical History: Other (gastric surgery for perf PUD) Family History Family History: Hypertension Social History <1 pack per day ALCOHOL: heavy Drugs: None Current Problem List Problem List Problems Medical Problems: (1) Distended bladder Status: Acute Current Medications Current Medications Current Medications Ondansetron HCl (Zofran) 4 mg STK-MED ONCE .ROUTE ; Start 05/10/18 at 04:42; Stop 05/10/18 at 04:43; Status DC Morphine Sulfate (Morphine Sulfate) 6 mg 1X ONCE IV Last administered on at 05:38; Start 05/10/18 at 05:15; Stop 05/10/18 at 05:16; Status DC Iohexol (Omnipaque 300 Mg/ml) 75 ml 1X ONCE IV Last administered on 05/10/18at 05:15; Start 05/10/18 at 05:15; Stop 05/10/18 at 05:16; Status DC Info (CONTRAST GIVEN -- Rx MONITORING) 1 each PRN DAILY PRN MC SEE COMMENTS; Start 05/10/18 at 05:15; Stop 05/12/18 at 05:14 Ondansetron HCl (Zofran) 4 mg 1X ONCE IV Last administered on 05/10/18at 05:44 ; Start 05/10/18 at 05:45; Stop 05/10/18 at 05:54; Status DC Sodium Chloride 1,000 ml @ 1,000 mls/hr 1X ONCE IV Last administered on at 05:44; Start 05/10/18 at 05:45; Stop 05/10/18 at 06:45; Status DC Promethazine HCl (Phenergan) 25 mg 1X ONCE PO Last administered on 05/10/18at 07:41; Start 05/10/18 at 07:30; Stop 05/10/18 at 07:34; Status DC Cephalexin HCl (Keflex) 500 mg ONCE ONCE PO Last administered on 05/10/18at 09: 13; Start 05/10/18 at 08:15; Stop 05/10/18 at 08:16; Status DC Tamsulosin HCl (Flomax) 0.4 mg 1X ONCE PO Last administered on 05/10/18at 10:39 ; Start 05/10/18 at 08:15; Stop 05/10/18 at 08:16; Status DC Ceftriaxone Sodium 1 gm/ Dextrose 50 ml @ 100 mls/hr Q24H IV ; Start 05/10/18 at 08:30; Status UNV Azithromycin (Zithromax) 500 mg 1X ONCE PO Last administered on 05/10/18at 09: 13; Start 05/10/18 at 08:30; Stop 05/10/18 at 08:38; Status DC Ceftriaxone Sodium 50 ml @ 100 mls/hr 1X ONCE IV Last administered on at 09:16; Start 05/10/18 at 09:00; Stop 05/10/18 at 09:29; Status DC Sodium Chloride 1,000 ml @ 125 mls/hr Q8H IV Last administered on 05/10/18at 13 :55; Start 05/10/18 at 09:13; Stop 05/11/18 at 09:12 Albuterol/ Ipratropium (Duoneb) 3 ml RTQID NEB Last administered on 05/10/18at 11:34; Start 05/10/18 at 12:00; Stop 05/10/18 at 13:00; Status DC Ceftriaxone Sodium (Rocephin) 1 gm Q24H IVP ; Start 05/11/18 at 09:00 Ondansetron HCl (Zofran Odt) 4 mg PRN Q8HRS PRN PO NAUSEA/VOMITING 1ST CHOICE Last administered on 05/10/18at 13:55; Start 05/10/18 at 13:00; Stop 05/10/18 at 14:33; Status DC Oxycodone/ Acetaminophen (Percocet 5/325) 1 tab PRN Q4HRS PRN PO PAIN MODERATE TO SEVERE Last administered on 05/10/18at 13:54; Start 05/10/18 at 13:00 Acetaminophen (Tylenol) 650 mg PRN Q4HRS PRN PO MILD PAIN / TEMP; Start at 13:00 Cyanocobalamin (Vitamin B-12) 1,000 mcg DAILY PO Last administered on at 13:54; Start 05/10/18 at 14:00 Lisinopril (Prinivil) 20 mg DAILY PO Last administered on 05/10/18at 13:54; Start 05/10/18 at 14:00 Albuterol Sulfate (Ventolin Neb Soln) 2.5 mg Q4HRS NEB ; Start 05/10/18 at 16:00 Atorvastatin Calcium (Lipitor) 80 mg QHS PO ; Start 05/10/18 at 21:00 Duloxetine HCl (Cymbalta) 60 mg DAILY PO Last administered on 05/10/18at 13:53; Start 05/10/18 at 14:00 Gabapentin (Neurontin) 600 mg TID PO Last administered on 05/10/18at 13:53; Start 05/10/18 at 14:00 Guaifenesin (Robitussin Dm) 10 ml PRN Q6HRS PRN PO COUGH; Start 05/10/18 at 13: 00; Stop 05/10/18 at 13:00; Status DC Magnesium Oxide (Magnesium Oxide) 400 mg BID PO Last administered on 05/10/18at 13:54; Start 05/10/18 at 14:00 Pantoprazole Sodium (Protonix) 40 mg QHS PO ; Start 05/10/18 at 21:00; Stop at 21:00; Status DC Quetiapine Fumarate (SEROquel) 50 mg BID92 PO Last administered on 05/10/18at 13 :53; Start 05/10/18 at 14:00 Quetiapine Fumarate (SEROquel) 150 mg QHS PO ; Start 05/10/18 at 21:00 Guaifenesin (Robitussin Dm) 5 ml PRN Q6HRS PRN PO COUGH; Start 05/10/18 at 13: 00 Lactobacillus Rhamnosus (Culturelle) 1 cap BID PO ; Start 05/10/18 at 21:00 Azithromycin (Zithromax) 250 mg DAILY PO ; Start 05/10/18 at 15:00 Nicotine (Nicoderm Cq 14mg) 1 patch PRN DAILY PRN TD SMOKING CESSATION; Start 05/10/18 at 14:30 Pantoprazole Sodium (Protonix) 40 mg BIDAC PO ; Start 05/10/18 at 16:30 Ondansetron HCl (Zofran) 8 mg PRN Q8HRS PRN IV NAUSEA/VOMITING; Start 05/10/18 at 14:45 Active Scripts Active Reported Quetiapine Fumarate 100 Mg Tablet 150 Mg PO HS Ventolin Hfa Inhaler (Albuterol Sulfate) 18 Gm Hfa.aer.ad 2 Puff INH Q4HRS Robitussin Cough-Chest Dm Liq (Guaifenesin/Dextromethorphan) 237 Ml Liquid 5 Ml PO PRN Q6-8HRS PRN Tylenol (Acetaminophen) 325 Mg Tablet 2 Tab PO PRN Q4HRS Vitamin B-12 (Cyanocobalamin (Vitamin B-12)) 1,000 Mcg Tablet 1 Tab PO DAILY Quetiapine Fumarate 50 Mg Tablet 50 Mg PO BID Omeprazole 20 Mg Capsule.dr 1 Cap PO HS Naltrexone Hcl 50 Mg Tablet 1 Tab PO DAILY Mag-Oxide (Magnesium Oxide) 400 Mg Tablet 1 Tab PO BID Lisinopril 20 Mg Tablet 1 Tab PO DAILY Gabapentin 600 Mg Tablet 600 Mg PO TID Cymbalta (Duloxetine Hcl) 60 Mg Capsule.dr 1 Cap PO DAILY Voltaren (Diclofenac Sodium) 100 Gm Gel..gram. 4 Gm TP QID Centrum Silver Tablet (Multivits-Min/Fa/Lycopene/Lut) 1 Each Tablet 1 Each PO DAILY Atorvastatin Calcium 80 Mg Tablet 1 Tab PO HS Prilosec Otc (Omeprazole Magnesium) 20 Mg Tablet.dr 1 Tab PO DAILY Allergies Allergies: Coded Allergies: No Known Drug Allergies (Unverified , 02/24/15) Physical Exam General: Alert, Oriented X3 HEENT: PERRLA Lungs: Clear to auscultation Heart: Regular rate, Normal S1, Normal S2 Abdomen: Normal bowel sounds, Soft, No hepatosplenomegaly, No masses, Other ( mild epigastric tenderness) Extremities: No clubbing Skin: No rashes Neuro: Normal speech Psych/Mental Status: Mental status NL MUSCULOSKELETAL: No joint tenderness Vitals VITALS Vital Signs Date Time Temp Pulse Resp B/P (MAP) Pulse Ox O2 Delivery O2 Flow Rate FiO2 05/10/18 13:54 85 166/92 05/10/18 13:54 20 94 Room Air 05/10/18 04:53 97.8 97.8 Labs Labs Laboratory Tests Test 05/10/18 04:28 05/10/18 06:46 White Blood Count 15.4 x10^3/uL (4.0-11.0) Red Blood Count 4.99 x10^6/uL (4.30-5.70) Hemoglobin 15.6 g/dL (13.0-17.5) Hematocrit 44.7 % (39.0-53.0) Mean Corpuscular Volume 90 fL (79-100) Mean Corpuscular Hemoglobin 31 pg (25-35) Mean Corpuscular Hemoglobin Concent 35 g/dL (31-37) Red Cell Distribution Width 14.9 % (11.5-14.5) Platelet Count 293 x10^3/uL (140-400) Neutrophils (%) (Auto) 88 % (31-73) Lymphocytes (%) (Auto) 8 % (24-48) Monocytes (%) (Auto) 4 % (0-9) Eosinophils (%) (Auto) 0 % (0-3) Basophils (%) (Auto) 0 % (0-3) Neutrophils # (Auto) 13.5 x10^3uL (1.8-7.7) Lymphocytes # (Auto) 1.2 x10^3/uL (1.0-4.8) Monocytes # (Auto) 0.6 x10^3/uL (0.0-1.1) Eosinophils # (Auto) 0.0 x10^3/uL (0.0-0.7) Basophils # (Auto) 0.1 x10^3/uL (0.0-0.2) Segmented Neutrophils % 85 % (35-66) Band Neutrophils % 1 % (0-9) Lymphocytes % 11 % (24-48) Monocytes % 2 % (0-10) Metamyelocytes % 1 % (0-0) Platelet Estimate Adequate (ADEQUATE) Sodium Level 144 mmol/L (136-145) Potassium Level 4.4 mmol/L (3.5-5.1) Chloride Level 102 mmol/L (98-107) Carbon Dioxide Level 20 mmol/L (21-32) Anion Gap 22 (6-14) Blood Urea Nitrogen 13 mg/dL (8-26) Creatinine 1.2 mg/dL (0.7-1.3) Estimated GFR (Cockcroft-Gault) 60.4 Glucose Level 149 mg/dL (70-99) Calcium Level 10.4 mg/dL (8.5-10.1) Total Bilirubin 0.4 mg/dL (0.2-1.0) Direct Bilirubin 0.1 mg/dL (0.0-0.2) Aspartate Amino Transf (AST/SGOT) 17 U/L (15-37) Alanine Aminotransferase (ALT/SGPT) 23 U/L (16-63) Alkaline Phosphatase 139 U/L (46-116) Troponin I Quantitative < 0.017 ng/mL (0.000-0.055) Total Protein 8.7 g/dL (6.4-8.2) Albumin 4.6 g/dL (3.4-5.0) Lipase 107 U/L (73-393) Ethyl Alcohol Level < 10 mg/dL (0-10) Urine Color Yellow Urine Clarity Clear Urine pH 6.0 Urine Specific [place] 1.010 Urine Protein Negative mg/dL (NEG-TRACE) Urine Glucose (UA) Negative mg/dL (NEG) Urine Ketones (Stick) Negative mg/dL (NEG) Urine Blood Negative (NEG) Urine Nitrite Negative (NEG) Urine Bilirubin Negative (NEG) Urine Urobilinogen Dipstick 0.2 mg/dL (0.2 mg/dL) Urine Leukocyte Esterase Negative (NEG) Urine RBC Occ /HPF (0-2) Urine WBC Rare /HPF (0-4) Urine Squamous Epithelial Cells Few /LPF Urine Bacteria 0 /HPF (0-FEW) Urine Opiates Screen Neg (NEG) Urine Methadone Screen Neg (NEG) Urine Barbiturates Neg (NEG) Urine Phencyclidine Screen Neg (NEG) Urine Amphetamine/Methamphetamine Neg (NEG) Urine Benzodiazepines Screen Neg (NEG) Urine Cocaine Screen Neg (NEG) Urine Cannabinoids Screen Neg (NEG) Urine Ethyl Alcohol Pos (NEG) Laboratory Tests Test 05/10/18 04:28 05/10/18 06:46 White Blood Count 15.4 x10^3/uL (4.0-11.0) Red Blood Count 4.99 x10^6/uL (4.30-5.70) Hemoglobin 15.6 g/dL (13.0-17.5) Hematocrit 44.7 % (39.0-53.0) Mean Corpuscular Volume 90 fL (79-100) Mean Corpuscular Hemoglobin 31 pg (25-35) Mean Corpuscular Hemoglobin Concent 35 g/dL (31-37) Red Cell Distribution Width 14.9 % (11.5-14.5) Platelet Count 293 x10^3/uL (140-400) Neutrophils (%) (Auto) 88 % (31-73) Lymphocytes (%) (Auto) 8 % (24-48) Monocytes (%) (Auto) 4 % (0-9) Eosinophils (%) (Auto) 0 % (0-3) Basophils (%) (Auto) 0 % (0-3) Neutrophils # (Auto) 13.5 x10^3uL (1.8-7.7) Lymphocytes # (Auto) 1.2 x10^3/uL (1.0-4.8) Monocytes # (Auto) 0.6 x10^3/uL (0.0-1.1) Eosinophils # (Auto) 0.0 x10^3/uL (0.0-0.7) Basophils # (Auto) 0.1 x10^3/uL (0.0-0.2) Segmented Neutrophils % 85 % (35-66) Band Neutrophils % 1 % (0-9) Lymphocytes % 11 % (24-48) Monocytes % 2 % (0-10) Metamyelocytes % 1 % (0-0) Platelet Estimate Adequate (ADEQUATE) Sodium Level 144 mmol/L (136-145) Potassium Level 4.4 mmol/L (3.5-5.1) Chloride Level 102 mmol/L (98-107) Carbon Dioxide Level 20 mmol/L (21-32) Anion Gap 22 (6-14) Blood Urea Nitrogen 13 mg/dL (8-26) Creatinine 1.2 mg/dL (0.7-1.3) Estimated GFR (Cockcroft-Gault) 60.4 Glucose Level 149 mg/dL (70-99) Calcium Level 10.4 mg/dL (8.5-10.1) Total Bilirubin 0.4 mg/dL (0.2-1.0) Direct Bilirubin 0.1 mg/dL (0.0-0.2) Aspartate Amino Transf (AST/SGOT) 17 U/L (15-37) Alanine Aminotransferase (ALT/SGPT) 23 U/L (16-63) Alkaline Phosphatase 139 U/L (46-116) Troponin I Quantitative < 0.017 ng/mL (0.000-0.055) Total Protein 8.7 g/dL (6.4-8.2) Albumin 4.6 g/dL (3.4-5.0) Lipase 107 U/L (73-393) Ethyl Alcohol Level < 10 mg/dL (0-10) Urine Color Yellow Urine Clarity Clear Urine pH 6.0 Urine Specific [place] 1.010 Urine Protein Negative mg/dL (NEG-TRACE) Urine Glucose (UA) Negative mg/dL (NEG) Urine Ketones (Stick) Negative mg/dL (NEG) Urine Blood Negative (NEG) Urine Nitrite Negative (NEG) Urine Bilirubin Negative (NEG) Urine Urobilinogen Dipstick 0.2 mg/dL (0.2 mg/dL) Urine Leukocyte Esterase Negative (NEG) Urine RBC Occ /HPF (0-2) Urine WBC Rare /HPF (0-4) Urine Squamous Epithelial Cells Few /LPF Urine Bacteria 0 /HPF (0-FEW) Urine Opiates Screen Neg (NEG) Urine Methadone Screen Neg (NEG) Urine Barbiturates Neg (NEG) Urine Phencyclidine Screen Neg (NEG) Urine Amphetamine/Methamphetamine Neg (NEG) Urine Benzodiazepines Screen Neg (NEG) Urine Cocaine Screen Neg (NEG) Urine Cannabinoids Screen Neg (NEG) Urine Ethyl Alcohol Pos (NEG) Images Images CT and US Assessment/Plan Assessment/Plan Nausea. vomiting and upper abd pain- history of ulcers with surgery in 1986- likely some sort of Billroth procedure so may be a risk for anastomotic ulcer- may benefit more from carafate than prilosec, which he has been on chronically and yet still has these symptoms Plan- CLD as tolerated consider carafate while continuing PPI EGD is warranted- will consider based on schedule IF no ulcer, then consider PIPIDA scan later NICOLA VELEZ MD May 10, 2018 15:14
[2018-05-10 19:00] VITALS: BP 97/58
[2018-05-10] MEDS: AZITHROMYCIN 250 MG TABLET. PO SCH (20:37)
[2018-05-10] MEDS: PANTOPRAZOLE 40 MG TABLET.DR. PO SCH (20:37)
[2018-05-10] MEDS: LACTOBACILLUS RHAMNOSUS GG 1 CAPSULE. PO SCH (20:38)
[2018-05-10] MEDS: QUEtiapine 100 MG TABLET. PO SCH (20:38)
[2018-05-10] MEDS: ATORVASTATIN CALCIUM 40 MG TABLET. PO SCH (20:38)
[2018-05-10] MEDS ORDERED: PANTOPRAZOLE 40 MG TABLET.DR. PO SCH (21:00)
[2018-05-10 23:08] VITALS: BP 115/65
[2018-05-11] VITALS (7 sets, daily range): BP systolic 92–122; BP diastolic 54–72
[2018-05-11] MEDS: IV NORMAL SALINE 1000ML BAG 1,000 ML IV SCH ×2 (01:13→02:26)
[2018-05-11] MEDS: oxyCODONE/APAP 5/325 1 TAB TABLET PO PRN ×2 (02:26→14:07)
[2018-05-11] MEDS: ALBUTEROL SULFATE 2.5 MG/3 ML NEBU. NEB SCH ×7 (04:00→23:55)
[2018-05-11 05:02] LABS: BASO % 0 % (0-3); EOS # 0.1 x10^3/uL (0.0-0.7); EOS % 1 % (0-3); HEMATOCRIT 34.9 % (39.0-53.0); HEMOGLOBIN 12.4 g/dL (13.0-17.5); LYMPH # 1.9 x10^3/uL (1.0-4.8); LYMPH % 20 % (24-48); MEAN CORPUSCULAR HEMOGLOBIN 32 pg (25-35); MEAN CORPUSCULAR HGB CONC 35 g/dL (31-37); MEAN CORPUSCULAR VOLUME 89 fL (79-100); MONO # 0.8 x10^3/uL (0.0-1.1); MONO % 9 % (0-9); NEUT # 6.5 x10^3uL (1.8-7.7); NEUT % 70 % (31-73); PLATELET COUNT 196 x10^3/uL (140-400); RED BLOOD COUNT 3.92 x10^6/uL (4.30-5.70); RED CELL DISTRIBUTION WIDTH 14.6 % (11.5-14.5); WHITE BLOOD COUNT 9.3 x10^3/uL (4.0-11.0)
[2018-05-11 05:48] LABS: ALBUMIN 3.3 g/dL (3.4-5.0); ALBUMIN/GLOBULIN RATIO 0.9 (1.0-1.7); CALCIUM 8.5 mg/dL (8.5-10.1); CREATININE 1.8 mg/dL (0.7-1.3); GFR 37.8; POTASSIUM 3.6 mmol/L (3.5-5.1); TOTAL BILIRUBIN 0.4 mg/dL (0.2-1.0); TOTAL PROTEIN 6.9 g/dL (6.4-8.2)
[2018-05-11] MEDS ORDERED: cefTRIAXone IV Push 1 GM VIAL. IVP SCH (09:00)
--- NOTE | 2018-05-11 09:47 | CONS ---
DATE OF CONSULTATION: ATTENDING PHYSICIAN: Dr. Terrell. REASON FOR CONSULTATION: Cough. HISTORY OF PRESENT ILLNESS: The patient is a 67-year-old male who has history of alcohol use. He presented to the hospital, complaining of nausea and some vomiting, but no diarrhea. The patient said he started to have shaking and belching and made him a little bit short of breath. The patient drinks 3 Ewing on a regular basis. I have reviewed the patient's imaging studies. Chest x-ray showed elevated right hemidiaphragm with possible mild atelectasis. CT abdomen and pelvis also showed tiny atelectasis right base. The patient denies any cough, fever, chills. No headaches, no dysuria. No focal weakness and no significant lower extremity edema. Consultation requested for further evaluation and management. PAST MEDICAL HISTORY: Significant for GERD, peptic ulcer disease, alcoholism and suspected COPD. PAST SURGICAL HISTORY: No recent surgeries. FAMILY HISTORY: Hypertension. SOCIAL HISTORY: Smoker, half pack to 1 pack per day for 35 years. Suspected COPD. REVIEW OF SYSTEMS: Twelve-point systems obtained. Pertinent positives discussed in my history of present illness, otherwise noncontributory. All systems that were negative were reviewed as well. ALLERGIES: None. CURRENT MEDICATIONS: Reviewed, including albuterol nebs, as well as Rocephin. PHYSICAL EXAMINATION: VITAL SIGNS: Reviewed. Blood pressure is stable, afebrile, pulse ox 96% on room air. NECK: Supple. LUNGS: Clear. CARDIOVASCULAR: Regular rate. ABDOMEN: Soft, mildly tender. EXTREMITIES: With no pitting edema. LABORATORY DATA: Reviewed. White cell count was 15.4, now down to 9.3; hemoglobin 12.4 and platelets are 196. BUN and creatinine 23 and 1.8. IMPRESSION: 1. Abdominal pain, being followed by GI. 2. No clinical suspicion for pneumonia. Chest x-ray showed elevated right hemidiaphragm with very tiny compressive atelectasis and CT abdomen confirms the same findings. 3. Suspected underlying chronic obstructive pulmonary disease without exacerbation. Smoked for at least 35 years. 4. Alcoholism. RECOMMENDATIONS: 1. From a pulmonary standpoint, continue present albuterol nebs. 2. Antibiotics can be discontinued from a pulmonary standpoint. 3. Follow GI recommendations. 4. Smoking cessation counseling provided. 5. We will follow along with you. KENNETH HALL MD DR: Ronak JOB#: [id number] / [id number] KELLY
[2018-05-11] MEDS ORDERED: PROPOFOL 40 ML IV ONE (11:23)
[2018-05-11] MEDS ORDERED: IV RINGERS,LACTATED 1000ML 1,000 ML IV SCH (11:30)
[2018-05-11] MEDS ORDERED: fentaNYL PF VIAL 100 MCG/2 ML VIAL IV PRN ×2 (11:30)
[2018-05-11] MEDS ORDERED: LIDOCAINE 1% PF 2 ML VIAL. ID PRN (11:30)
[2018-05-11] MEDS ORDERED: MIDAZOLAM HCL/PF 2 MG/2 ML VIAL. IV PRN (11:30)
--- NOTE | 2018-05-11 11:35 | PDOC4 ---
PROCEDURE Procedure EGD with bx n/v- history of surgery Anesthesia with propofol Findings- normal esophagus, mild gastritis- with normal anatomy ( intact antrum - no evidence for ulcer surgery), duodenitis without ulcer- no obvious surgical changes Plan- PPI advance diet based on history, likely had oversew of duodenal ulcer with perf in 1986 since exam today shows no surgical changes NICOLA VELEZ MD May 11, 2018 11:35
--- NOTE | 2018-05-11 13:43 | PDOC ---
PROGRESS NOTES Chief Complaint Chief Complaint acute abdominal pain with nausea, vomiting leukocytosis, tachycardia, SIRS, w/o organ dys. Abx started in ER, CXR looks more like atelectasis on report GERD, PPI to BID, tobacco use disorder EtOH use, likely dependence, withdrawl precautions History of Present Illness History of Present Illness EGD OK pain better still very weak plan PT and OT try to dc soon Vitals Vitals Vital Signs Date Time Temp Pulse Resp B/P (MAP) Pulse Ox O2 Delivery O2 Flow Rate FiO2 05/11/18 12:09 97.8 61 20 112/72 (85) 91 Room Air 97.8 05/11/18 11:41 2 Physical Exam General: Alert, Oriented X3, No acute distress Heart: Regular rate, Normal S1, Normal S2 Lungs: Clear Abdomen: Normal bowel sounds, Soft, No hepatosplenomegaly, No masses, Other ( mild epigastric tenderness) Extremities: No clubbing Skin: No rashes Labs LABS Laboratory Tests Test 05/11/18 04:25 05/11/18 04:45 White Blood Count 9.3 x10^3/uL (4.0-11.0) Red Blood Count 3.92 x10^6/uL (4.30-5.70) Hemoglobin 12.4 g/dL (13.0-17.5) Hematocrit 34.9 % (39.0-53.0) Mean Corpuscular Volume 89 fL (79-100) Mean Corpuscular Hemoglobin 32 pg (25-35) Mean Corpuscular Hemoglobin Concent 35 g/dL (31-37) Red Cell Distribution Width 14.6 % (11.5-14.5) Platelet Count 196 x10^3/uL (140-400) Neutrophils (%) (Auto) 70 % (31-73) Lymphocytes (%) (Auto) 20 % (24-48) Monocytes (%) (Auto) 9 % (0-9) Eosinophils (%) (Auto) 1 % (0-3) Basophils (%) (Auto) 0 % (0-3) Neutrophils # (Auto) 6.5 x10^3uL (1.8-7.7) Lymphocytes # (Auto) 1.9 x10^3/uL (1.0-4.8) Monocytes # (Auto) 0.8 x10^3/uL (0.0-1.1) Eosinophils # (Auto) 0.1 x10^3/uL (0.0-0.7) Basophils # (Auto) 0.0 x10^3/uL (0.0-0.2) Sodium Level 139 mmol/L (136-145) Potassium Level 3.6 mmol/L (3.5-5.1) Chloride Level 103 mmol/L (98-107) Carbon Dioxide Level 25 mmol/L (21-32) Anion Gap 11 (6-14) Blood Urea Nitrogen 23 mg/dL (8-26) Creatinine 1.8 mg/dL (0.7-1.3) Estimated GFR (Cockcroft-Gault) 37.8 BUN/Creatinine Ratio 13 (6-20) Glucose Level 128 mg/dL (70-99) Calcium Level 8.5 mg/dL (8.5-10.1) Total Bilirubin 0.4 mg/dL (0.2-1.0) Aspartate Amino Transf (AST/SGOT) 15 U/L (15-37) Alanine Aminotransferase (ALT/SGPT) 16 U/L (16-63) Alkaline Phosphatase 100 U/L (46-116) Total Protein 6.9 g/dL (6.4-8.2) Albumin 3.3 g/dL (3.4-5.0) Albumin/Globulin Ratio 0.9 (1.0-1.7) Assessment and Plan Assessmemt and Plan Problems Medical Problems: (1) Distended bladder Status: Acute Comment Review of Relevant I have reviewed the following items christine (where applicable) has been applied. Labs Laboratory Tests Test 05/10/18 04:28 05/10/18 06:46 05/11/18 04:25 05/11/18 04:45 White Blood Count 15.4 x10^3/uL (4.0-11.0) 9.3 x10^3/uL (4.0-11.0) Red Blood Count 4.99 x10^6/uL (4.30-5.70) 3.92 x10^6/uL (4.30-5.70) Hemoglobin 15.6 g/dL (13.0-17.5) 12.4 g/dL (13.0-17.5) Hematocrit 44.7 % (39.0-53.0) 34.9 % (39.0-53.0) Mean Corpuscular Volume 90 fL (79-100) 89 fL (79-100) Mean Corpuscular Hemoglobin 31 pg (25-35) 32 pg (25-35) Mean Corpuscular Hemoglobin Concent 35 g/dL (31-37) 35 g/dL (31-37) Red Cell Distribution Width 14.9 % (11.5-14.5) 14.6 % (11.5-14.5) Platelet Count 293 x10^3/uL (140-400) 196 x10^3/uL (140-400) Neutrophils (%) (Auto) 88 % (31-73) 70 % (31-73) Lymphocytes (%) (Auto) 8 % (24-48) 20 % (24-48) Monocytes (%) (Auto) 4 % (0-9) 9 % (0-9) Eosinophils (%) (Auto) 0 % (0-3) 1 % (0-3) Basophils (%) (Auto) 0 % (0-3) 0 % (0-3) Neutrophils # (Auto) 13.5 x10^3uL (1.8-7.7) 6.5 x10^3uL (1.8-7.7) Lymphocytes # (Auto) 1.2 x10^3/uL (1.0-4.8) 1.9 x10^3/uL (1.0-4.8) Monocytes # (Auto) 0.6 x10^3/uL (0.0-1.1) 0.8 x10^3/uL (0.0-1.1) Eosinophils # (Auto) 0.0 x10^3/uL (0.0-0.7) 0.1 x10^3/uL (0.0-0.7) Basophils # (Auto) 0.1 x10^3/uL (0.0-0.2) 0.0 x10^3/uL (0.0-0.2) Segmented Neutrophils % 85 % (35-66) Band Neutrophils % 1 % (0-9) Lymphocytes % 11 % (24-48) Monocytes % 2 % (0-10) Metamyelocytes % 1 % (0-0) Platelet Estimate Adequate (ADEQUATE) Sodium Level 144 mmol/L (136-145) 139 mmol/L (136-145) Potassium Level 4.4 mmol/L (3.5-5.1) 3.6 mmol/L (3.5-5.1) Chloride Level 102 mmol/L (98-107) 103 mmol/L (98-107) Carbon Dioxide Level 20 mmol/L (21-32) 25 mmol/L (21-32) Anion Gap 22 (6-14) 11 (6-14) Blood Urea Nitrogen 13 mg/dL (8-26) 23 mg/dL (8-26) Creatinine 1.2 mg/dL (0.7-1.3) 1.8 mg/dL (0.7-1.3) Estimated GFR (Cockcroft-Gault) 60.4 37.8 Glucose Level 149 mg/dL (70-99) 128 mg/dL (70-99) Calcium Level 10.4 mg/dL (8.5-10.1) 8.5 mg/dL (8.5-10.1) Total Bilirubin 0.4 mg/dL (0.2-1.0) 0.4 mg/dL (0.2-1.0) Direct Bilirubin 0.1 mg/dL (0.0-0.2) Aspartate Amino Transf (AST/SGOT) 17 U/L (15-37) 15 U/L (15-37) Alanine Aminotransferase (ALT/SGPT) 23 U/L (16-63) 16 U/L (16-63) Alkaline Phosphatase 139 U/L (46-116) 100 U/L (46-116) Troponin I Quantitative < 0.017 ng/mL (0.000-0.055) Total Protein 8.7 g/dL (6.4-8.2) 6.9 g/dL (6.4-8.2) Albumin 4.6 g/dL (3.4-5.0) 3.3 g/dL (3.4-5.0) Lipase 107 U/L (73-393) Ethyl Alcohol Level < 10 mg/dL (0-10) Urine Color Yellow Urine Clarity Clear Urine pH 6.0 Urine Specific Chadron 1.010 Urine Protein Negative mg/dL (NEG-TRACE) Urine Glucose (UA) Negative mg/dL (NEG) Urine Ketones (Stick) Negative mg/dL (NEG) Urine Blood Negative (NEG) Urine Nitrite Negative (NEG) Urine Bilirubin Negative (NEG) Urine Urobilinogen Dipstick 0.2 mg/dL (0.2 mg/dL) Urine Leukocyte Esterase Negative (NEG) Urine RBC Occ /HPF (0-2) Urine WBC Rare /HPF (0-4) Urine Squamous Epithelial Cells Few /LPF Urine Bacteria 0 /HPF (0-FEW) Urine Opiates Screen Neg (NEG) Urine Methadone Screen Neg (NEG) Urine Barbiturates Neg (NEG) Urine Phencyclidine Screen Neg (NEG) Urine Amphetamine/Methamphetamine Neg (NEG) Urine Benzodiazepines Screen Neg (NEG) Urine Cocaine Screen Neg (NEG) Urine Cannabinoids Screen Neg (NEG) Urine Ethyl Alcohol Pos (NEG) BUN/Creatinine Ratio 13 (6-20) Albumin/Globulin Ratio 0.9 (1.0-1.7) Laboratory Tests Test 05/11/18 04:25 05/11/18 04:45 White Blood Count 9.3 x10^3/uL (4.0-11.0) Red Blood Count 3.92 x10^6/uL (4.30-5.70) Hemoglobin 12.4 g/dL (13.0-17.5) Hematocrit 34.9 % (39.0-53.0) Mean Corpuscular Volume 89 fL (79-100) Mean Corpuscular Hemoglobin 32 pg (25-35) Mean Corpuscular Hemoglobin Concent 35 g/dL (31-37) Red Cell Distribution Width 14.6 % (11.5-14.5) Platelet Count 196 x10^3/uL (140-400) Neutrophils (%) (Auto) 70 % (31-73) Lymphocytes (%) (Auto) 20 % (24-48) Monocytes (%) (Auto) 9 % (0-9) Eosinophils (%) (Auto) 1 % (0-3) Basophils (%) (Auto) 0 % (0-3) Neutrophils # (Auto) 6.5 x10^3uL (1.8-7.7) Lymphocytes # (Auto) 1.9 x10^3/uL (1.0-4.8) Monocytes # (Auto) 0.8 x10^3/uL (0.0-1.1) Eosinophils # (Auto) 0.1 x10^3/uL (0.0-0.7) Basophils # (Auto) 0.0 x10^3/uL (0.0-0.2) Sodium Level 139 mmol/L (136-145) Potassium Level 3.6 mmol/L (3.5-5.1) Chloride Level 103 mmol/L (98-107) Carbon Dioxide Level 25 mmol/L (21-32) Anion Gap 11 (6-14) Blood Urea Nitrogen 23 mg/dL (8-26) Creatinine 1.8 mg/dL (0.7-1.3) Estimated GFR (Cockcroft-Gault) 37.8 BUN/Creatinine Ratio 13 (6-20) Glucose Level 128 mg/dL (70-99) Calcium Level 8.5 mg/dL (8.5-10.1) Total Bilirubin 0.4 mg/dL (0.2-1.0) Aspartate Amino Transf (AST/SGOT) 15 U/L (15-37) Alanine Aminotransferase (ALT/SGPT) 16 U/L (16-63) Alkaline Phosphatase 100 U/L (46-116) Total Protein 6.9 g/dL (6.4-8.2) Albumin 3.3 g/dL (3.4-5.0) Albumin/Globulin Ratio 0.9 (1.0-1.7) Microbiology 05/10/18 Blood Culture - Preliminary, Resulted NO GROWTH AFTER 1 DAY Medications Current Medications Ondansetron HCl (Zofran) 4 mg STK-MED ONCE .ROUTE ; Start 05/10/18 at 04:42; Stop 05/10/18 at 04:43; Status DC Morphine Sulfate (Morphine Sulfate) 6 mg 1X ONCE IV Last administered on at 05:38; Start 05/10/18 at 05:15; Stop 05/10/18 at 05:16; Status DC Iohexol (Omnipaque 300 Mg/ml) 75 ml 1X ONCE IV Last administered on 05/10/18at 05:15; Start 05/10/18 at 05:15; Stop 05/10/18 at 05:16; Status DC Info (CONTRAST GIVEN -- Rx MONITORING) 1 each PRN DAILY PRN MC SEE COMMENTS; Start 05/10/18 at 05:15; Stop 05/12/18 at 05:14 Ondansetron HCl (Zofran) 4 mg 1X ONCE IV Last administered on 05/10/18at 05:44 ; Start 05/10/18 at 05:45; Stop 05/10/18 at 05:54; Status DC Sodium Chloride 1,000 ml @ 1,000 mls/hr 1X ONCE IV Last administered on at 05:44; Start 05/10/18 at 05:45; Stop 05/10/18 at 06:45; Status DC Promethazine HCl (Phenergan) 25 mg 1X ONCE PO Last administered on 05/10/18at 07:41; Start 05/10/18 at 07:30; Stop 05/10/18 at 07:34; Status DC Cephalexin HCl (Keflex) 500 mg ONCE ONCE PO Last administered on 05/10/18at 09: 13; Start 05/10/18 at 08:15; Stop 05/10/18 at 08:16; Status DC Tamsulosin HCl (Flomax) 0.4 mg 1X ONCE PO Last administered on 05/10/18at 10:39 ; Start 05/10/18 at 08:15; Stop 05/10/18 at 08:16; Status DC Ceftriaxone Sodium 1 gm/ Dextrose 50 ml @ 100 mls/hr Q24H IV ; Start 05/10/18 at 08:30; Status UNV Azithromycin (Zithromax) 500 mg 1X ONCE PO Last administered on 05/10/18at 09: 13; Start 05/10/18 at 08:30; Stop 05/10/18 at 08:38; Status DC Ceftriaxone Sodium 50 ml @ 100 mls/hr 1X ONCE IV Last administered on at 09:16; Start 05/10/18 at 09:00; Stop 05/10/18 at 09:29; Status DC Sodium Chloride 1,000 ml @ 125 mls/hr Q8H IV Last administered on 05/11/18at 02 :26; Start 05/10/18 at 09:13; Stop 05/11/18 at 09:12; Status DC Albuterol/ Ipratropium (Duoneb) 3 ml RTQID NEB Last administered on 05/10/18at 11:34; Start 05/10/18 at 12:00; Stop 05/10/18 at 13:00; Status DC Ceftriaxone Sodium (Rocephin) 1 gm Q24H IVP ; Start 05/11/18 at 09:00 Ondansetron HCl (Zofran Odt) 4 mg PRN Q8HRS PRN PO NAUSEA/VOMITING 1ST CHOICE Last administered on 05/10/18at 13:55; Start 05/10/18 at 13:00; Stop 05/10/18 at 14:33; Status DC Oxycodone/ Acetaminophen (Percocet 5/325) 1 tab PRN Q4HRS PRN PO PAIN MODERATE TO SEVERE Last administered on 05/11/18at 02:26; Start 05/10/18 at 13:00 Acetaminophen (Tylenol) 650 mg PRN Q4HRS PRN PO MILD PAIN / TEMP; Start at 13:00 Cyanocobalamin (Vitamin B-12) 1,000 mcg DAILY PO Last administered on at 13:54; Start 05/10/18 at 14:00 Lisinopril (Prinivil) 20 mg DAILY PO Last administered on 05/10/18at 13:54; Start 05/10/18 at 14:00 Albuterol Sulfate (Ventolin Neb Soln) 2.5 mg Q4HRS NEB Last administered on at 07:00; Start 05/10/18 at 16:00 Atorvastatin Calcium (Lipitor) 80 mg QHS PO Last administered on 05/10/18at 20: 38; Start 05/10/18 at 21:00 Duloxetine HCl (Cymbalta) 60 mg DAILY PO Last administered on 05/10/18at 13:53; Start 05/10/18 at 14:00 Gabapentin (Neurontin) 600 mg TID PO Last administered on 05/10/18at 20:38; Start 05/10/18 at 14:00 Guaifenesin (Robitussin Dm) 10 ml PRN Q6HRS PRN PO COUGH; Start 05/10/18 at 13: 00; Stop 05/10/18 at 13:00; Status DC Magnesium Oxide (Magnesium Oxide) 400 mg BID PO Last administered on 05/10/18at 20:38; Start 05/10/18 at 14:00 Pantoprazole Sodium (Protonix) 40 mg QHS PO ; Start 05/10/18 at 21:00; Stop at 21:00; Status DC Quetiapine Fumarate (SEROquel) 50 mg BID92 PO Last administered on 05/10/18at 13 :53; Start 05/10/18 at 14:00 Quetiapine Fumarate (SEROquel) 150 mg QHS PO Last administered on 05/10/18at 20: 38; Start 05/10/18 at 21:00 Guaifenesin (Robitussin Dm) 5 ml PRN Q6HRS PRN PO COUGH; Start 05/10/18 at 13: 00 Lactobacillus Rhamnosus (Culturelle) 1 cap BID PO Last administered on at 20:38; Start 05/10/18 at 21:00 Azithromycin (Zithromax) 250 mg DAILY PO Last administered on 05/10/18at 20:37; Start 05/10/18 at 15:00 Nicotine (Nicoderm Cq 14mg) 1 patch PRN DAILY PRN TD SMOKING CESSATION; Start 05/10/18 at 14:30 Pantoprazole Sodium (Protonix) 40 mg BIDAC PO Last administered on 05/10/18at 20 :37; Start 05/10/18 at 16:30 Ondansetron HCl (Zofran) 8 mg PRN Q8HRS PRN IV NAUSEA/VOMITING Last administered on 05/10/18at 20:40; Start 05/10/18 at 14:45 Midazolam HCl (Versed) 2 mg PRN 1X PRN IV PRIOR TO PROCEDURE; Start 05/11/18 at 11:30; Stop 05/11/18 at 19:00 Fentanyl Citrate (Fentanyl 2ml Vial) 25 mcg PRN Q5MIN PRN IV X 2 DOSES FOR PAIN ; Start 05/11/18 at 11:30; Stop 05/11/18 at 19:00 Fentanyl Citrate (Fentanyl 2ml Vial) 50 mcg PRN Q5MIN PRN IV X 2 DOSES FOR PAIN ; Start 05/11/18 at 11:30; Stop 05/11/18 at 19:00 Ringer's Solution 1,000 ml @ 125 mls/hr Q8H IV Last administered on 05/11/18at 10:15; Start 05/11/18 at 11:30; Stop 05/11/18 at 19:00 Lidocaine HCl (Xylocaine-Mpf 1% 2ml Vial) 2 ml 1X PRN PRN ID IV START; Start at 11:30; Stop 05/11/18 at 19:00 Propofol 40 ml @ As Directed STK-MED ONCE IV ; Start 05/11/18 at 11:23; Stop at 11:24; Status DC Sucralfate (Carafate) 1 gm TIDAC PO ; Start 05/11/18 at 11:45 Active Scripts Active Reported Quetiapine Fumarate 100 Mg Tablet 150 Mg PO HS Ventolin Hfa Inhaler (Albuterol Sulfate) 18 Gm Hfa.aer.ad 2 Puff INH Q4HRS Robitussin Cough-Chest Dm Liq (Guaifenesin/Dextromethorphan) 237 Ml Liquid 5 Ml PO PRN Q6-8HRS PRN Tylenol (Acetaminophen) 325 Mg Tablet 2 Tab PO PRN Q4HRS Vitamin B-12 (Cyanocobalamin (Vitamin B-12)) 1,000 Mcg Tablet 1 Tab PO DAILY Quetiapine Fumarate 50 Mg Tablet 50 Mg PO BID Omeprazole 20 Mg Capsule.dr 1 Cap PO HS Naltrexone Hcl 50 Mg Tablet 1 Tab PO DAILY Mag-Oxide (Magnesium Oxide) 400 Mg Tablet 1 Tab PO BID Lisinopril 20 Mg Tablet 1 Tab PO DAILY Gabapentin 600 Mg Tablet 600 Mg PO TID Cymbalta (Duloxetine Hcl) 60 Mg Capsule.dr 1 Cap PO DAILY Voltaren (Diclofenac Sodium) 100 Gm Gel..gram. 4 Gm TP QID Centrum Silver Tablet (Multivits-Min/Fa/Lycopene/Lut) 1 Each Tablet 1 Each PO DAILY Atorvastatin Calcium 80 Mg Tablet 1 Tab PO HS Prilosec Otc (Omeprazole Magnesium) 20 Mg Tablet.dr 1 Tab PO DAILY Vitals/I & O Vital Sign - Last 24 Hours 05/10/18 05/10/18 05/10/18 05/10/18 13:54 13:54 15:00 15:16 Temp 97.6 97.6 Pulse 85 90 Resp 20 B/P (MAP) 166/92 144/62 (89) Pulse Ox 94 95 99 O2 Delivery Room Air Room Air Room Air 05/10/18 05/10/18 05/10/18 05/10/18 19:00 19:56 20:00 20:40 Temp 98.2 98.2 Pulse 85 Resp 19 16 B/P (MAP) 97/58 (71) Pulse Ox 94 94 O2 Delivery Room Air Room Air Room Air 05/10/18 05/11/18 05/11/18 05/11/18 23:08 02:26 02:39 03:26 Temp 98.1 97.5 98.1 97.5 Pulse 95 72 Resp 18 16 18 16 B/P (MAP) 115/65 (82) 92/54 (67) Pulse Ox 96 96 96 96 O2 Delivery Room Air Room Air Room Air Room Air 05/11/18 05/11/18 05/11/18 05/11/18 07:00 07:02 08:00 09:39 Temp 97.7 97.2 97.7 97.2 Pulse 71 Resp 18 16 B/P (MAP) 103/63 (76) Pulse Ox 90 96 97 O2 Delivery Room Air Room Air Room Air 05/11/18 05/11/18 05/11/18 05/11/18 09:40 11:00 11:35 11:41 Temp 97.8 98.0 97.8 98.0 Pulse 61 76 78 Resp 20 16 16 B/P (MAP) 122/72 (89) 99/51 91/54 Pulse Ox 91 97 97 O2 Delivery Room Air Room Air Nasal Cannula Nasal Cannula O2 Flow Rate 2 2 05/11/18 05/11/18 11:51 12:09 Temp 97.8 97.8 Pulse 67 61 Resp 18 20 B/P (MAP) 112/63 112/72 (85) Pulse Ox 94 91 O2 Delivery Room Air Room Air Intake and Output 05/10/18 05/10/18 05/11/18 15:00 23:00 07:00 Intake Total 250 ml 500 ml 440 ml Output Total 200 ml Balance 250 ml 300 ml 440 ml EMELI DUEÑAS MD May 11, 2018 13:43
[2018-05-11] MEDS: MAGNESIUM OXIDE 400 MG TABLET PO SCH ×2 (13:56→21:11)
[2018-05-11] MEDS: GABAPENTIN 300 MG CAPSULE. PO SCH ×3 (13:56→21:12)
[2018-05-11] MEDS: QUEtiapine 25 MG TABLET. PO SCH ×2 (13:56→14:00)
[2018-05-11] MEDS: LISINOPRIL 20 MG TABLET PO SCH (13:57)
[2018-05-11] MEDS: LACTOBACILLUS RHAMNOSUS GG 1 CAPSULE. PO SCH ×2 (13:57→21:11)
[2018-05-11] MEDS: DULoxetine HCL 30 MG CAPSULE.DR PO SCH (13:57)
[2018-05-11] MEDS: SUCRALFATE 1 GM TABLET. PO SCH ×2 (13:57→17:33)
[2018-05-11] MEDS: CYANOCOBALAMIN (VITAMIN B-12) 1,000 MCG TABLET. PO SCH (13:57)
[2018-05-11] MEDS: PANTOPRAZOLE 40 MG TABLET.DR. PO SCH ×2 (13:58→17:34)
[2018-05-11] MEDS: AZITHROMYCIN 250 MG TABLET. PO SCH (13:58)
[2018-05-11] MEDS ORDERED: MULTIVIT INFUSN,ADULT 4,VIT K 10 ML, THIAMINE INJ 100 MG, FOLIC ACID INJ 1 MG in IV NOR... IV ONE (14:30)
[2018-05-11] MEDS: LORazepam 1 MG TABLET PO SCH ×2 (15:19→21:11)
--- NOTE | 2018-05-11 21:07 | EKG ---
[facility] [address] [place] [address] Test Date: 2018-05-10 Test Time: 05:07:54 Pat Name: ZHOU WICK Department: Room: 576 1 Gender: M [employer] Estate [employer]: : [id number] Requested By: ANIL CONLEY Order Number: [id number] Reading MD: Tez Shen Measurements Intervals Brandon Rate: 70 P: 56 MS: 170 QRS: -20 QRSD: 86 T: 24 QT: 410 QTc: 446 Interpretive Statements SINUS RHYTHM LEFTWARD AXIS QRS(T) CONTOUR ABNORMALITY CONSIDER INFERIOR INFARCT POSSIBLY ABNORMAL ECG Electronically Signed On 05-13-2018 10:53:42 CDT by Tez Shen
[2018-05-11] MEDS: QUEtiapine 100 MG TABLET. PO SCH (21:12)
[2018-05-11] MEDS: ATORVASTATIN CALCIUM 40 MG TABLET. PO SCH (21:12)
[2018-05-12 03:12] VITALS: BP 111/55
[2018-05-12] MEDS: ALBUTEROL SULFATE 2.5 MG/3 ML NEBU. NEB SCH ×4 (04:00→15:30)
[2018-05-12] MEDS: SUCRALFATE 1 GM TABLET. PO SCH ×3 (05:40→16:49)
[2018-05-12 07:00] VITALS: BP 116/69
[2018-05-12] MEDS: oxyCODONE/APAP 5/325 1 TAB TABLET PO PRN ×2 (08:01→21:57)
[2018-05-12] MEDS: LISINOPRIL 20 MG TABLET PO SCH (08:02)
[2018-05-12] MEDS: MULTIVITAMIN with MINERAL TABLET. PO SCH (08:02)
[2018-05-12] MEDS: PANTOPRAZOLE 40 MG TABLET.DR. PO SCH ×2 (08:03→16:49)
[2018-05-12] MEDS: GABAPENTIN 300 MG CAPSULE. PO SCH ×3 (08:03→21:51)
[2018-05-12] MEDS: FOLIC ACID 1 MG TABLET. PO SCH (08:03)
[2018-05-12] MEDS: QUEtiapine 25 MG TABLET. PO SCH ×2 (08:03→14:52)
[2018-05-12] MEDS: LACTOBACILLUS RHAMNOSUS GG 1 CAPSULE. PO SCH ×2 (08:04→21:52)
[2018-05-12] MEDS: LORazepam 1 MG TABLET PO SCH ×2 (08:04→21:52)
[2018-05-12] MEDS: CYANOCOBALAMIN (VITAMIN B-12) 1,000 MCG TABLET. PO SCH (08:04)
[2018-05-12] MEDS: MAGNESIUM OXIDE 400 MG TABLET PO SCH ×2 (08:04→21:49)
[2018-05-12] MEDS: DULoxetine HCL 30 MG CAPSULE.DR PO SCH (08:04)
[2018-05-12] MEDS: THIAMINE 100 MG TABLET. PO SCH (08:05)
[2018-05-12] MEDS ORDERED: IV NORMAL SALINE 500ML BAG 500 ML IV ONE (09:15)
--- NOTE | 2018-05-12 09:24 | PDOC ---
PULMONARY PROGRESS NOTES Subjective PT NOT MORE SOA NO INCREASE COUGH Vitals Vital Signs Date Time Temp Pulse Resp B/P (MAP) Pulse Ox O2 Delivery O2 Flow Rate FiO2 05/12/18 09:01 Room Air 05/12/18 08:02 71 111/55 05/12/18 08:01 92 2.0 05/12/18 07:00 98.0 16 98.0 ROS: No Nausea, No Chest Pain, No Increase Cough General: Alert, Oriented X4, No acute distress Lungs: Clear Cardiovascular: S1 Abdomen: Soft Extremities: No Edema Labs Laboratory Tests Test 05/11/18 04:25 05/11/18 04:45 White Blood Count 9.3 x10^3/uL (4.0-11.0) Red Blood Count 3.92 x10^6/uL (4.30-5.70) Hemoglobin 12.4 g/dL (13.0-17.5) Hematocrit 34.9 % (39.0-53.0) Mean Corpuscular Volume 89 fL (79-100) Mean Corpuscular Hemoglobin 32 pg (25-35) Mean Corpuscular Hemoglobin Concent 35 g/dL (31-37) Red Cell Distribution Width 14.6 % (11.5-14.5) Platelet Count 196 x10^3/uL (140-400) Neutrophils (%) (Auto) 70 % (31-73) Lymphocytes (%) (Auto) 20 % (24-48) Monocytes (%) (Auto) 9 % (0-9) Eosinophils (%) (Auto) 1 % (0-3) Basophils (%) (Auto) 0 % (0-3) Neutrophils # (Auto) 6.5 x10^3uL (1.8-7.7) Lymphocytes # (Auto) 1.9 x10^3/uL (1.0-4.8) Monocytes # (Auto) 0.8 x10^3/uL (0.0-1.1) Eosinophils # (Auto) 0.1 x10^3/uL (0.0-0.7) Basophils # (Auto) 0.0 x10^3/uL (0.0-0.2) Sodium Level 139 mmol/L (136-145) Potassium Level 3.6 mmol/L (3.5-5.1) Chloride Level 103 mmol/L (98-107) Carbon Dioxide Level 25 mmol/L (21-32) Anion Gap 11 (6-14) Blood Urea Nitrogen 23 mg/dL (8-26) Creatinine 1.8 mg/dL (0.7-1.3) Estimated GFR (Cockcroft-Gault) 37.8 BUN/Creatinine Ratio 13 (6-20) Glucose Level 128 mg/dL (70-99) Calcium Level 8.5 mg/dL (8.5-10.1) Total Bilirubin 0.4 mg/dL (0.2-1.0) Aspartate Amino Transf (AST/SGOT) 15 U/L (15-37) Alanine Aminotransferase (ALT/SGPT) 16 U/L (16-63) Alkaline Phosphatase 100 U/L (46-116) Total Protein 6.9 g/dL (6.4-8.2) Albumin 3.3 g/dL (3.4-5.0) Albumin/Globulin Ratio 0.9 (1.0-1.7) Medications Active Scripts Medications Dose Route/Sig Max Daily Dose Days Date Category Quetiapine Fumarate 100 Mg Tablet 150 Mg PO HS 05/10/18 Reported Ventolin Hfa Inhaler (Albuterol Sulfate) 18 Gm Hfa.aer.ad 2 Puff INH Q4HRS 05/10/18 Reported Robitussin Cough-Chest Dm Liq (Guaifenesin/Dextromethorphan) 237 Ml Liquid 5 Ml PO PRN Q6-8HRS PRN 05/10/18 Reported Tylenol (Acetaminophen) 325 Mg Tablet 2 Tab PO PRN Q4HRS 05/10/18 Reported Vitamin B-12 (Cyanocobalamin (Vitamin B-12)) 1,000 Mcg Tablet 1 Tab PO DAILY 05/10/18 Reported Quetiapine Fumarate 50 Mg Tablet 50 Mg PO BID 05/10/18 Reported Omeprazole 20 Mg Capsule.dr 1 Cap PO HS 05/10/18 Reported Naltrexone Hcl 50 Mg Tablet 1 Tab PO DAILY 05/10/18 Reported Mag-Oxide (Magnesium Oxide) 400 Mg Tablet 1 Tab PO BID 05/10/18 Reported Lisinopril 20 Mg Tablet 1 Tab PO DAILY 05/10/18 Reported Gabapentin 600 Mg Tablet 600 Mg PO TID 05/10/18 Reported Cymbalta (Duloxetine Hcl) 60 Mg Capsule.dr 1 Cap PO DAILY 05/10/18 Reported Voltaren (Diclofenac Sodium) 100 Gm Gel..gram. 4 Gm TP QID 05/10/18 Reported Centrum Silver Tablet (Multivits-Min/Fa/Lycopene/Lut) 1 Each Tablet 1 Each PO DAILY 05/10/18 Reported Atorvastatin Calcium 80 Mg Tablet 1 Tab PO HS 05/10/18 Reported Prilosec Otc (Omeprazole Magnesium) 20 Mg Tablet.dr 1 Tab PO DAILY 02/24/15 Reported Impression . 1. Abdominal pain, being followed by GI. 2. No clinical suspicion for pneumonia. Chest x-ray showed elevated right hemidiaphragm with very tiny compressive atelectasis and CT abdomen confirms the same findings. 3. Suspected underlying chronic obstructive pulmonary disease without exacerbation. Smoked for at least 35 years. 4. Alcoholism. 5. COUGH/GERD . Plan . STOP ALL CAFFEINE INTAKE CONTINUE THE SAME DANNI SANCHEZ MD May 12, 2018 09:24
--- NOTE | 2018-05-12 10:19 | PDOC ---
Subjective: Subjective: No n/v or abd pain. Tolerating PO. Has some concerns re: urination, has questions about Flomax, feels not expelling enough urine. Hasn't stooled, doesn't feel the urge. Asked him if he felt well enough to DC, he's not sure. Objective: Vital Signs: Vital Signs Date Time Temp Pulse Resp B/P (MAP) Pulse Ox O2 Delivery O2 Flow Rate FiO2 05/12/18 09:01 Room Air 05/12/18 08:02 71 111/55 05/12/18 08:01 92 2.0 05/12/18 07:00 98.0 16 98.0 Labs: BLOOD CULTURE Preliminary NO GROWTH AFTER 1 DAY Imaging: RUQ US Impression: 1. No significant abnormality is demonstrated, somewhat limited evaluation due to bowel gas with poor visualization of the midline structures and liver parenchyma. CT A/P IMPRESSION: 1. Minimal bilateral perinephric fat stranding could be due to medical renal disease or urinary tract infection. 2. Moderate distended urinary bladder. EGD Findings- normal esophagus, mild gastritis- with normal anatomy ( intact antrum - no evidence for ulcer surgery), duodenitis without ulcer- no obvious surgical changes PE: GEN: NAD LUNGS: CTAB HEART: RRR ABD: S/ND/NT NEURO/PSYCH: A & O 3 A/P: N/v, abd pain after drinking more alcohol than normal - resolved -EGD w/ mild gastritis and duodenitis, no ulcer (?past h/o oversew of DU) -on PPI and Carafate Urinary hesitancy, KATT -- GI symptoms have resolved and he is tolerating a normal diet - from our standpoint, could DC soon. Will add Miralax PRN if he wants. Defer his urinary concerns to primary. ARNOLD HOSKINS May 12, 2018 10:19
[2018-05-12 10:22] LABS: CALCIUM 8.2 mg/dL (8.5-10.1); CREATININE 0.9 mg/dL (0.7-1.3); GFR 84.2; POTASSIUM 4.1 mmol/L (3.5-5.1)
[2018-05-12] MEDS ORDERED: POLYETHYLENE GLYCOL 3350 17 GM PACKET. PO PRN (10:30)
[2018-05-12 11:11] VITALS: BP 133/77
[2018-05-12] MEDS ORDERED: SUCR1TAB35 PO (11:12)
[2018-05-12] MEDS ORDERED: THIA100T22 PO (11:12)
[2018-05-12] MEDS ORDERED: FOLI1TAB16 PO (11:12)
--- NOTE | 2018-05-12 11:14 | PDOC3 ---
Discharge Summary Visit Information Date of Admission: May 10, 2018 Date of Discharge: May 12, 2018 Admitting Diagnosis Comment: acute abdominal pain with nausea, vomiting NEG EGD leukocytosis, tachycardia, SIRS, w/o organ dys. Abx started in ER, CXR looks more like atelectasis on report GERD, PPI to BID, tobacco use disorder EtOH use, likely dependence, withdrawl precautions Final Diagnosis Problems Medical Problems: (1) Distended bladder Status: Acute Brief Hospital Course Allergies Allergies Coded Allergies Type Severity Reaction Last Updated Verified No Known Drug Allergies 02/24/15 No Vital Signs Vital Signs Date Time Temp Pulse Resp B/P (MAP) Pulse Ox O2 Delivery O2 Flow Rate FiO2 05/12/18 11:11 98.1 70 16 133/77 (95) 96 Room Air 98.1 05/12/18 08:01 2.0 Lab Results Laboratory Tests Test 05/11/18 04:25 05/11/18 04:45 05/12/18 09:49 White Blood Count 9.3 x10^3/uL (4.0-11.0) Red Blood Count 3.92 x10^6/uL (4.30-5.70) Hemoglobin 12.4 g/dL (13.0-17.5) Hematocrit 34.9 % (39.0-53.0) Mean Corpuscular Volume 89 fL (79-100) Mean Corpuscular Hemoglobin 32 pg (25-35) Mean Corpuscular Hemoglobin Concent 35 g/dL (31-37) Red Cell Distribution Width 14.6 % (11.5-14.5) Platelet Count 196 x10^3/uL (140-400) Neutrophils (%) (Auto) 70 % (31-73) Lymphocytes (%) (Auto) 20 % (24-48) Monocytes (%) (Auto) 9 % (0-9) Eosinophils (%) (Auto) 1 % (0-3) Basophils (%) (Auto) 0 % (0-3) Neutrophils # (Auto) 6.5 x10^3uL (1.8-7.7) Lymphocytes # (Auto) 1.9 x10^3/uL (1.0-4.8) Monocytes # (Auto) 0.8 x10^3/uL (0.0-1.1) Eosinophils # (Auto) 0.1 x10^3/uL (0.0-0.7) Basophils # (Auto) 0.0 x10^3/uL (0.0-0.2) Sodium Level 139 mmol/L (136-145) 142 mmol/L (136-145) Potassium Level 3.6 mmol/L (3.5-5.1) 4.1 mmol/L (3.5-5.1) Chloride Level 103 mmol/L (98-107) 108 mmol/L (98-107) Carbon Dioxide Level 25 mmol/L (21-32) 28 mmol/L (21-32) Anion Gap 11 (6-14) 6 (6-14) Blood Urea Nitrogen 23 mg/dL (8-26) 12 mg/dL (8-26) Creatinine 1.8 mg/dL (0.7-1.3) 0.9 mg/dL (0.7-1.3) Estimated GFR (Cockcroft-Gault) 37.8 84.2 BUN/Creatinine Ratio 13 (6-20) Glucose Level 128 mg/dL (70-99) 107 mg/dL (70-99) Calcium Level 8.5 mg/dL (8.5-10.1) 8.2 mg/dL (8.5-10.1) Total Bilirubin 0.4 mg/dL (0.2-1.0) Aspartate Amino Transf (AST/SGOT) 15 U/L (15-37) Alanine Aminotransferase (ALT/SGPT) 16 U/L (16-63) Alkaline Phosphatase 100 U/L (46-116) Total Protein 6.9 g/dL (6.4-8.2) Albumin 3.3 g/dL (3.4-5.0) Albumin/Globulin Ratio 0.9 (1.0-1.7) Laboratory Tests Test 05/12/18 09:49 Sodium Level 142 mmol/L (136-145) Potassium Level 4.1 mmol/L (3.5-5.1) Chloride Level 108 mmol/L (98-107) Carbon Dioxide Level 28 mmol/L (21-32) Anion Gap 6 (6-14) Blood Urea Nitrogen 12 mg/dL (8-26) Creatinine 0.9 mg/dL (0.7-1.3) Estimated GFR (Cockcroft-Gault) 84.2 Glucose Level 107 mg/dL (70-99) Calcium Level 8.2 mg/dL (8.5-10.1) Brief Hospital Course Mr. Eldridge is a 67 old male who lives in [place] assisted living admitted because of abdominal pain nausea vomiting he fulfilled SIRS criteria without organ dysfunction. Antibiotics started at the ER but he does not need this on discharge. Atelectasis only on chest x-ray and no UTI. EGD is negative. Cleared from GI to go home. Started on some Carafate and PPI which I have Rx'd. Also reports to daily alcohol drinking. Still gait unsteady. Discussed with physical therapy to work with him again later this afternoon. Already has physical therapy in [place]. Some reports of urinary retention but as per staff, voids 300-400 mL's and one episode. Rx on chart, to continue physical therapy and ADL Consults performed GI Procedures performed EGD Time spent discharging 31 minutes. 50% DC education counseling coronation. Discharge Information Condition at Discharge: Improved, Stable Disposition/Orders: D/C to Home Scheduled Acetaminophen (Tylenol) 325 Mg Tablet, 2 TAB PO PRN Q4HRS, #30 (Reported) Entered as Reported by: CODI ALBRECHT on 05/10/181237 Last Taken: 650MG. on 05/10/18 1235 Last Action: Continued on 05/10/181248 by EMELI DUEÑAS Albuterol Sulfate (Ventolin Hfa Inhaler) 18 Gm Hfa.aer.ad, 2 PUFF INH Q4HRS for FOR ASTHMA, Ref 0 (Reported) Entered as Reported by: CODI ALBRECHT on 05/10/181237 Last Taken: 1-2 PUFFS Q4HRS. PRN on 05/10/181237 Last Action: Converted on 05/10/181248 by EMELI DUEÑAS Atorvastatin Calcium (Atorvastatin Calcium) 80 Mg Tablet, 1 TAB PO HS, #30 Ref 5 (Reported) Entered as Reported by: CODI ALBRECHT on 05/10/181237 Last Taken: 80mg. on 05/10/18 1220 Last Action: Converted on 05/10/181247 by EMELI DUEÑAS Cyanocobalamin (Vitamin B-12) (Vitamin B-12) 1,000 Mcg Tablet, 1 TAB PO DAILY, # 30 Ref 2 (Reported) Entered as Reported by: CODI ALBRECHT on 05/10/181237 Last Taken: 1,000 MG. DAILY on 05/10/18 1234 Last Action: Continued on 1248 by EMELI DUEÑAS Diclofenac Sodium (Voltaren) 100 Gm Gel..gram., 4 GM TP QID, #100 Ref 2 ( Reported) Entered as Reported by: CODI ALBRECHT on 05/10/181237 Last Taken: 4gm. on 05/10/18 1223 Last Action: HELD on 05/10/181247 by EMELI DUEÑAS Duloxetine Hcl (Cymbalta) 60 Mg Capsule.dr, 1 CAP PO DAILY, #90 Ref 3 (Reported) Entered as Reported by: CODI ALBRECHT on 05/10/181237 Last Taken: 60MG. DAILY on 05/10/181224 Last Action: Converted on 1248 by EMELI DUEÑAS Folic Acid (Folic Acid) 1 Mg Tablet, 1 MG PO DAILY for 30 Days, #30 Prescribed by: JENNIFER AVENDAÑO on 05/12/18 1112 Gabapentin (Gabapentin) 600 Mg Tablet, 600 MG PO TID, (Reported) Entered as Reported by: CODI ALBRECHT on 05/10/181237 Last Taken: 600MG. on 05/10/181225 Last Action: Converted on 05/10/181248 by EMELI DUEÑAS Lisinopril (Lisinopril) 20 Mg Tablet, 1 TAB PO DAILY, #30 Ref 5 (Reported) Entered as Reported by: CODI ALBRECHT on 05/10/181237 Last Taken: 20 MG. on 05/10/181227 Last Action: Continued on 05/10/181248 by EMELI DUEÑAS Magnesium Oxide (Mag-Oxide) 400 Mg Tablet, 1 TAB PO BID, #60 Ref 5 (Reported) Entered as Reported by: CODI ALBRECHT on 05/10/181237 Last Taken: 400MG. BID on 05/10/181228 Last Action: Converted on 05/10/181248 by EMELI DUEÑAS Multivits-Min/Fa/Lycopene/Lut (Centrum Silver Tablet) 1 Each Tablet, 1 EACH PO DAILY, (Reported) Entered as Reported by: CODI ALBRECHT on 05/10/181237 Last Taken: 1 tab. daily on 05/10/18 122 Last Action: HELD on 05/10/181247 by EMELI DUEÑAS Naltrexone Hcl (Naltrexone Hcl) 50 Mg Tablet, 1 TAB PO DAILY, #30 Ref 2 ( Reported) Entered as Reported by: CODI ALBRECHT on 05/10/181237 Last Taken: 50 MG. on 05/10/18 1230 Last Action: HELD on 05/10/181248 by EMELI DUEÑAS Omeprazole (Omeprazole) 20 Mg Capsule.dr, 1 CAP PO HS, #30 Ref 5 (Reported) Entered as Reported by: CODI ALBRECHT on 05/10/181237 Last Taken: 20MG. QHS. on 05/10/181230 Last Action: Converted on 05/10/181248 by EMELI DUEÑAS Omeprazole Magnesium (Prilosec Otc) 20 Mg Tablet.dr, 1 TAB PO DAILY, #30 Ref 3 ( Reported) Entered as Reported by: Alejandrina Preciado on 02/24/15 0654 Last Action: HELD on 05/10/181247 by EMELI DUEÑAS Quetiapine Fumarate (Quetiapine Fumarate) 50 Mg Tablet, 50 MG PO BID, (Reported) Entered as Reported by: CODI ALBRECHT on 05/10/181237 Last Taken: 50MG. on 05/10/181232 Last Action: Converted on 05/10/181248 by EMELI DUEÑAS Quetiapine Fumarate (Quetiapine Fumarate) 100 Mg Tablet, 150 MG PO HS, (Reported ) Entered as Reported by: CODI ALBRECHT on 05/10/181242 Last Taken: 150 MG. QHS. on 05/10/181242 Last Action: Converted on 1248 by EMELI DUEÑAS Sucralfate (Carafate) 1 Gm Tablet, 1 GM PO TIDAC for 14 Days, #42 Prescribed by: JENNIFER AVENDAÑO on 05/12/18 1112 Thiamine Mononitrate (Vitamin B-1) 100 Mg Tablet, 100 MG PO DAILY for 30 Days, # 30 Prescribed by: JENNIFER AVENDAÑO on 05/12/18 1112 Scheduled PRN Guaifenesin/Dextromethorphan (Robitussin Cough-Chest Dm Liq) 237 Ml Liquid, 5 ML PO PRN Q6-8HRS PRN for COUGH, (Reported) Entered as Reported by: CODI ALBRECHT on 05/10/181237 Last Taken: 5MLS. Q6HRS PRN on 05/10/18 1237 Last Action: Converted on 1249 by EMELI DUEÑAS Discontinued Medications Quetiapine Fumarate (Seroquel) 200 Mg Tablet, 1 TAB PO QHS, #30 Ref 1 (Reported) Entered as Reported by: CODI ALBRECHT on 05/10/18 123 Last Taken: 100MG. Q HS. on 05/10/18 1231 Last Action: Discontinued on 1240 by JENNIFER HUMPHREY MD May 12, 2018 11:14
[2018-05-12 15:00] VITALS: BP 128/78
[2018-05-12] MEDS ORDERED: ALBUTEROL SULFATE 2.5 MG/3 ML NEBU. NEB PRN (18:30)
[2018-05-12 19:00] VITALS: BP 140/77
[2018-05-12] MEDS: ATORVASTATIN CALCIUM 40 MG TABLET. PO SCH (21:49)
[2018-05-12] MEDS: QUEtiapine 100 MG TABLET. PO SCH (21:50)
[2018-05-12 23:00] VITALS: BP 144/82
[2018-05-13 02:36] VITALS: BP 130/73
[2018-05-13] MEDS: oxyCODONE/APAP 5/325 1 TAB TABLET PO PRN (03:43)
[2018-05-13 07:00] VITALS: BP 128/74
[2018-05-13] MEDS: MAGNESIUM OXIDE 400 MG TABLET PO SCH (07:57)
[2018-05-13] MEDS: GABAPENTIN 300 MG CAPSULE. PO SCH (07:57)
[2018-05-13] MEDS: CYANOCOBALAMIN (VITAMIN B-12) 1,000 MCG TABLET. PO SCH (07:57)
[2018-05-13] MEDS: DULoxetine HCL 30 MG CAPSULE.DR PO SCH (07:58)
[2018-05-13] MEDS: PANTOPRAZOLE 40 MG TABLET.DR. PO SCH (07:58)
[2018-05-13] MEDS: LACTOBACILLUS RHAMNOSUS GG 1 CAPSULE. PO SCH (07:58)
[2018-05-13] MEDS: LISINOPRIL 20 MG TABLET PO SCH (07:58)
[2018-05-13] MEDS: FOLIC ACID 1 MG TABLET. PO SCH (07:58)
[2018-05-13] MEDS: MULTIVITAMIN with MINERAL TABLET. PO SCH (07:58)
[2018-05-13] MEDS: SUCRALFATE 1 GM TABLET. PO SCH ×2 (07:58→11:30)
[2018-05-13] MEDS: QUEtiapine 25 MG TABLET. PO SCH (09:00)
[2018-05-13] MEDS: LORazepam 1 MG TABLET PO SCH (09:00)
[2018-05-13] MEDS: THIAMINE 100 MG TABLET. PO SCH (09:00)
--- NOTE | 2018-05-13 09:09 | PDOC ---
PULMONARY PROGRESS NOTES Subjective PT NOT MORE SOA NO INCREASE COUGH Vitals Vital Signs Date Time Temp Pulse Resp B/P (MAP) Pulse Ox O2 Delivery O2 Flow Rate FiO2 05/13/18 07:58 71 130/73 05/13/18 07:00 97.7 18 96 Room Air 97.7 05/13/18 02:36 2.0 ROS: No Nausea, No Chest Pain, No Increase Cough General: Alert, Oriented X4, No acute distress Lungs: Clear Cardiovascular: S1 Abdomen: Soft Extremities: No Edema Labs Laboratory Tests Test 05/12/18 09:49 Sodium Level 142 mmol/L (136-145) Potassium Level 4.1 mmol/L (3.5-5.1) Chloride Level 108 mmol/L (98-107) Carbon Dioxide Level 28 mmol/L (21-32) Anion Gap 6 (6-14) Blood Urea Nitrogen 12 mg/dL (8-26) Creatinine 0.9 mg/dL (0.7-1.3) Estimated GFR (Cockcroft-Gault) 84.2 Glucose Level 107 mg/dL (70-99) Calcium Level 8.2 mg/dL (8.5-10.1) Laboratory Tests Test 05/12/18 09:49 Sodium Level 142 mmol/L (136-145) Potassium Level 4.1 mmol/L (3.5-5.1) Chloride Level 108 mmol/L (98-107) Carbon Dioxide Level 28 mmol/L (21-32) Anion Gap 6 (6-14) Blood Urea Nitrogen 12 mg/dL (8-26) Creatinine 0.9 mg/dL (0.7-1.3) Estimated GFR (Cockcroft-Gault) 84.2 Glucose Level 107 mg/dL (70-99) Calcium Level 8.2 mg/dL (8.5-10.1) Medications Active Scripts Medications Dose Route/Sig Max Daily Dose Days Date Category Quetiapine Fumarate 100 Mg Tablet 150 Mg PO HS 05/10/18 Reported Ventolin Hfa Inhaler (Albuterol Sulfate) 18 Gm Hfa.aer.ad 2 Puff INH Q4HRS 05/10/18 Reported Robitussin Cough-Chest Dm Liq (Guaifenesin/Dextromethorphan) 237 Ml Liquid 5 Ml PO PRN Q6-8HRS PRN 05/10/18 Reported Tylenol (Acetaminophen) 325 Mg Tablet 2 Tab PO PRN Q4HRS 05/10/18 Reported Vitamin B-12 (Cyanocobalamin (Vitamin B-12)) 1,000 Mcg Tablet 1 Tab PO DAILY 05/10/18 Reported Quetiapine Fumarate 50 Mg Tablet 50 Mg PO BID 05/10/18 Reported Omeprazole 20 Mg Capsule.dr 1 Cap PO HS 05/10/18 Reported Naltrexone Hcl 50 Mg Tablet 1 Tab PO DAILY 05/10/18 Reported Mag-Oxide (Magnesium Oxide) 400 Mg Tablet 1 Tab PO BID 05/10/18 Reported Lisinopril 20 Mg Tablet 1 Tab PO DAILY 05/10/18 Reported Gabapentin 600 Mg Tablet 600 Mg PO TID 05/10/18 Reported Cymbalta (Duloxetine Hcl) 60 Mg Capsule.dr 1 Cap PO DAILY 05/10/18 Reported Voltaren (Diclofenac Sodium) 100 Gm Gel..gram. 4 Gm TP QID 05/10/18 Reported Centrum Silver Tablet (Multivits-Min/Fa/Lycopene/Lut) 1 Each Tablet 1 Each PO DAILY 05/10/18 Reported Atorvastatin Calcium 80 Mg Tablet 1 Tab PO HS 05/10/18 Reported Prilosec Otc (Omeprazole Magnesium) 20 Mg Tablet.dr 1 Tab PO DAILY 02/24/15 Reported Impression . 1. Abdominal pain, being followed by GI. 2. No clinical suspicion for pneumonia. Chest x-ray showed elevated right hemidiaphragm with very tiny compressive atelectasis and CT abdomen confirms the same findings. 3. Suspected underlying chronic obstructive pulmonary disease without exacerbation. Smoked for at least 35 years. 4. Alcoholism. 5. COUGH/GERD . Plan . STOP ALL CAFFEINE INTAKE CONTINUE THE SAME OK TO D/C D/W DANNI GIBBS MD May 13, 2018 09:09
[2018-05-13 11:00] VITALS: BP 114/65
--- NOTE | 2018-05-13 12:23 | PDOC ---
Provider Note Provider Note Patient seen and examined SAw patient walking with physical therapy, did pretty good Stable to discharge back to [facility] today with home health Rx on chart E mar done Discussed with staff COunselled re etoh use JENNIFER AVENDAÑO MD May 13, 2018 12:23
--- NOTE | 2018-05-13 12:24 | PDOC ---
Subjective: Subjective: Walking w/ therapy. Objective: Objective: Reviewed w/ RN - tolerating PO, posible DC later today - was weak this morning, almost fell over putting pants on, now better, ongoing concerns w/ urination. Vital Signs: Vital Signs Date Time Temp Pulse Resp B/P (MAP) Pulse Ox O2 Delivery O2 Flow Rate FiO2 05/13/18 11:00 97.6 68 20 114/65 (81) 97 Room Air 97.6 05/13/18 02:36 2.0 Labs: BLOOD CULTURE Preliminary NO GROWTH AFTER 3 DAYS PE: GEN: NAD, walking halls NEURO/PSYCH: A & O 3 A/P: N/v, abd pain - resolved, probably related to alcohol -EGD w/ mild gastritis and duodenitis, no ulcer - on PPI and Carafate -- DC per primary. ARNOLD HOSKINS May 13, 2018 12:24
[2018-05-13 15:00] VITALS: BP 141/84
--- NOTE | 2018-05-13 15:09 | PATHOLOGY ---
[facility] Accession Number: [id number] . 01 Material submitted: . PART A: DUODENAL BIOPSY PART B: ANTRUM BIOPSY . 01 Clinical history: . Vomiting, gastritis, rule out H. pylori . 02 Diagnosis: A. Duodenal biopsies: - Mild nonspecific duodenitis. . B. Gastric biopsies, antrum: - Chronic gastritis, mild. QTP/05/13/2018 . 02 Comment: Sections of the duodenal biopsy reveal segments of duodenal mucosa showing congestion and focal mild chronic inflammation with a few scattered admixed neutrophils. There are no sprue-like changes. . Sections of the gastric antral biopsy show congestion and mild chronic inflammation. A properly controlled immunoperoxidase stain for Helicobacter is negative for Helicobacter organisms. There is no evidence of malignancy. (JPM:[facility] 05/13/2018) . . Special stains performed: Immunoperoxidase stain for Helicobacter . 02 Electronically signed: . Dell Vazquez MD, Pathologist NPI- [id number] . 01 Gross description: . A. Received in formalin labeled "Jero Eldridge, duodenal biopsy," and additionally labeled on the requisition as "inflammation," are 2 segments of wise soft tissue measuring 0.8 x 0.3 x 0.2 cm in aggregate dimensions and measuring 0.4 cm each in maximum dimension. The specimen is submitted entirely in cassette A1. . B. Received in formalin labeled "Jero Eldridge, antrum," are 2 segments of wise soft tissue measuring 0.8 x 0.2 x 0.2 cm in aggregate dimensions and ranging from 0.3 to 0.5 cm in maximum dimension. The specimen is submitted entirely in cassette B1. (TSD; 05/12/2018) TOB/TOB . 02 Pathologist provided ICD-10: K29.80, K29.50 . 02 CPT . 064510, 750466, [id number] Specimen Comment: A courtesy copy of this report has been sent to Specimen Comment: [phone], , . Specimen Comment: Report sent to , and Performed at: [address] [facility] [address], [place] [id number] MD Franco Bolton MD Phone: [phone] Performed at: 02 [facility] [address] [place], [place] [id number] MD Dell Vazquez MD Phone: [phone]
== END 2018-05-13 15:59 | disposition home health service (06) | DRG 391 ==
LOC: ER 04:16 → 5 SOUTH 08:45
PROVIDERS: ADMIT Internal Medicine; ATTEND Internal Medicine
PROC: 0DB98ZX Excision of Duodenum, Via Natural or Artificial Opening Endoscopic, Diagnostic (ICD-10-PCS; principal; 2018-05-11 10:00)
PROC: 0DB68ZX Excision of Stomach, Via Natural or Artificial Opening Endoscopic, Diagnostic (ICD-10-PCS; 2018-05-11 10:00)
DX: K21.9 Gastro-esophageal reflux disease without esophagitis (principal); N17.0 Acute kidney failure with tubular necrosis; R65.10 Systemic inflammatory response syndrome (SIRS) of non-infectious origin without acute organ dysfunction; J98.11 Atelectasis; K29.70 Gastritis, unspecified, without bleeding; K29.80 Duodenitis without bleeding; I10 Essential (primary) hypertension; E78.00 Pure hypercholesterolemia, unspecified; Z87.11 Personal history of peptic ulcer disease; Z96.649 Presence of unspecified artificial hip joint; F17.210 Nicotine dependence, cigarettes, uncomplicated; F10.20 Alcohol dependence, uncomplicated; Z79.899 Other long term (current) drug therapy; Z82.49 Family history of ischemic heart disease and other diseases of the circulatory system; J45.909 Unspecified asthma, uncomplicated; Z87.01 Personal history of pneumonia (recurrent); D72.829 Elevated white blood cell count, unspecified; R00.0 Tachycardia, unspecified; R26.9 Unspecified abnormalities of gait and mobility; R39.11 Hesitancy of micturition
CPT/HCPCS: 36415; 51702; 71045; 74177; 76705; 80048; 80053; 80076; 80307; 81001; 83690; 84484; 85007; 85025; 87040; 88305; 88342; 93005; 94640; 94760; 96361; 96365; 96375; G0480; J0690; J0696; J2270; J2405; J2704; J7030; J7040; J7120; J7613; J7620; Q0144; Q0162; Q0169; Q9967; 97110; 97116; 99285-25; G0479

== ENCOUNTER 2018-05-18 03:55 | Inpatient (IN) | payer MEDICARE, OTHER ==
[~2018-05-18] VITALS: Ht 190.5 cm; Wt 85.8 kg
[~2018-05-18 03:55] MED LIST changes: +ACET325T9 PO; +ATORVASTATIN CA80 MG PO; +CYAN10005 PO; +DICL100G18 TP; +DULO60CA6 PO; +FOLI1TAB16 PO; +GABA600T2 PO; +GUAI237L83 PO; +LISI-334 PO; +MAGN400T22 PO; +MULT-658 PO; +NALT50TA PO; +OMEP20CA9 PO; +QUET100T PO; +QUET200T4 PO; +QUET50TA PO; +SUCR1TAB35 PO; +THIA100T22 PO; +VENTOLIN HFA18 GM INH
[2018-05-18 04:15] LABS: BASO # 0.1 x10^3/uL (0.0-0.2); BASO % 1 % (0-3); EOS # 0.1 x10^3/uL (0.0-0.7); EOS % 1 % (0-3); HEMATOCRIT 42.4 % (39.0-53.0); HEMOGLOBIN 14.8 g/dL (13.0-17.5); LYMPH # 1.6 x10^3/uL (1.0-4.8); LYMPH % 14 % (24-48); MEAN CORPUSCULAR HEMOGLOBIN 31 pg (25-35); MEAN CORPUSCULAR HGB CONC 35 g/dL (31-37); MEAN CORPUSCULAR VOLUME 89 fL (79-100); MONO # 0.8 x10^3/uL (0.0-1.1); MONO % 7 % (0-9); NEUT # 9.1 x10^3uL (1.8-7.7); NEUT % 78 % (31-73); PLATELET COUNT 255 x10^3/uL (140-400); RED BLOOD COUNT 4.78 x10^6/uL (4.30-5.70); RED CELL DISTRIBUTION WIDTH 14.7 % (11.5-14.5); WHITE BLOOD COUNT 11.7 x10^3/uL (4.0-11.0)
[2018-05-18 04:24] LABS: CALCIUM 9.7 mg/dL (8.5-10.1); GFR 74.5; POTASSIUM 4.1 mmol/L (3.5-5.1)
--- NOTE | 2018-05-18 04:28 | PHYS DOC ---
Past Medical History Past Medical History: GERD, Hypertension, Pneumonia, UTI Additional Past Medical Histor: BPH Past Surgical History: Hip Replacement, Tonsillectomy Additional Past Surgical Histo: RIGHT HIP SX, BILAT KNEE SX Additional Information: 1 PPD Alcohol Use: Rarely Drug Use: None Adult General Chief Complaint Chief Complaint: NAUSEA/VOMITING/DIARRHA HPI HPI Patient is a 67 year old male with history of aortic use and soft. Today, continued alcoholism who presents with epigastric pain with nausea and vomiting which is been intermittent for the past 3 days. Patient was admitted the hospital proximally to school for the same was also treated for pneumonia. Denies hemoptysis, coffee-ground analysis or bilious emesis emesis. Reports epigastric pain. No diarrhea. No other acute symptoms or complaints. Patient states he last ate 3 days ago and last drank alcohol today prior to symptom onset. Denies history of pancreatitis, small bowel obstruction. No chest pain chest tightness, bloody stools or dark tarry stools.[] Review of Systems Review of Systems Review symptoms as per history of present illness. All other review symptoms are negative. All other systems were reviewed and found to be within normal limits, except as documented in this note. Current Medications Current Medications Current Medications Medications (Trade) Dose Ordered Sig/Lio Start Time Stop Time Status Last Admin Dose Admin Famotidine (Pepcid Vial) 20 mg 1X ONCE 05/18/18 04:30 05/18/18 04:31 DC 05/18/18 04:11 20 MG Fentanyl Citrate (Fentanyl 2ml Vial) 75 mcg 1X ONCE 05/18/18 04:30 05/18/18 04:31 DC 05/18/18 04:16 75 MCG Ondansetron HCl (Zofran) 8 mg 1X ONCE 05/18/18 04:30 05/18/18 04:31 DC 05/18/18 04:12 8 MG Sodium Chloride 1,000 ml @ 1,000 mls/hr 1X ONCE 05/18/18 04:30 05/18/18 05:29 DC 05/18/18 04:16 1,000 MLS/HR Allergies Allergies Allergies Coded Allergies Type Severity Reaction Last Updated Verified No Known Drug Allergies 02/24/15 No Physical Exam Physical Exam Constitutional: Well developed, well nourished, no acute distress, non-toxic appearance. [] HENT: Normocephalic, atraumatic, bilateral external ears normal, oropharynx moist, no oral exudates, nose normal. [] Eyes: PERRLA, EOMI, conjunctiva normal, no discharge. [] Neck: Normal range of motion, no tenderness, supple, no stridor. [] Cardiovascular:Heart rate regular rhythm, no murmur [] Lungs & Thorax: Bilateral breath sounds clear to auscultation [] Abdomen: Bowel sounds normal, soft, epigastric pain, tenderness... [] Skin: Warm, dry, no erythema, no rash. [] Back: No tenderness, no CVA tenderness. [] Extremities: No tenderness, no cyanosis, no clubbing, ROM intact, no edema. [] Neurologic: Alert and oriented, normal motor function, normal sensory function, tremor at rest. [] Psychologic: Affect normal, judgement normal, mood normal. [] Current Patient Data Vital Signs Vital Signs Date Time Temp Pulse Resp B/P (MAP) Pulse Ox O2 Delivery O2 Flow Rate FiO2 05/18/18 04:16 22 98 Room Air 05/18/18 04:01 98.1 84 135/74 (94) 98.1 Lab Values Laboratory Tests Test 05/18/18 04:10 White Blood Count 11.7 x10^3/uL (4.0-11.0) H Red Blood Count 4.78 x10^6/uL (4.30-5.70) Hemoglobin 14.8 g/dL (13.0-17.5) Hematocrit 42.4 % (39.0-53.0) Mean Corpuscular Volume 89 fL (79-100) Mean Corpuscular Hemoglobin 31 pg (25-35) Mean Corpuscular Hemoglobin Concent 35 g/dL (31-37) Red Cell Distribution Width 14.7 % (11.5-14.5) H Platelet Count 255 x10^3/uL (140-400) Neutrophils (%) (Auto) 78 % (31-73) H Lymphocytes (%) (Auto) 14 % (24-48) L Monocytes (%) (Auto) 7 % (0-9) Eosinophils (%) (Auto) 1 % (0-3) Basophils (%) (Auto) 1 % (0-3) Neutrophils # (Auto) 9.1 x10^3uL (1.8-7.7) H Lymphocytes # (Auto) 1.6 x10^3/uL (1.0-4.8) Monocytes # (Auto) 0.8 x10^3/uL (0.0-1.1) Eosinophils # (Auto) 0.1 x10^3/uL (0.0-0.7) Basophils # (Auto) 0.1 x10^3/uL (0.0-0.2) Sodium Level 139 mmol/L (136-145) Potassium Level 4.1 mmol/L (3.5-5.1) Chloride Level 98 mmol/L (98-107) Carbon Dioxide Level 27 mmol/L (21-32) Anion Gap 14 (6-14) Blood Urea Nitrogen 16 mg/dL (8-26) Creatinine 1.0 mg/dL (0.7-1.3) Estimated GFR (Cockcroft-Gault) 74.5 BUN/Creatinine Ratio 16 (6-20) Glucose Level 102 mg/dL (70-99) H Calcium Level 9.7 mg/dL (8.5-10.1) Total Bilirubin 0.7 mg/dL (0.2-1.0) Aspartate Amino Transferase (AST) 12 U/L (15-37) L Alanine Aminotransferase (ALT) 17 U/L (16-63) Alkaline Phosphatase 115 U/L (46-116) Troponin I Quantitative < 0.017 ng/mL (0.000-0.055) Total Protein 8.2 g/dL (6.4-8.2) Albumin 4.0 g/dL (3.4-5.0) Albumin/Globulin Ratio 1.0 (1.0-1.7) Lipase 88 U/L (73-393) Laboratory Tests 05/18/18 04:10 Laboratory Tests 05/18/18 04:10 EKG EKG [EKG: reviewed] Radiology/Procedures Radiology/Procedures [] Course & Med Decision Making Course & Med Decision Making Pertinent Labs and Imaging studies reviewed. (See chart for details) [Patient's abdomen remained soft, nonsurgical. Lab work reviewed and benign. Significant improvement with treatment in the emergency department. No vomiting observed during the ED evaluation. Will return to [facility]. Return precautions reviewed.] Dragon Disclaimer Dragon Disclaimer This electronic medical record was generated, in whole or in part, using a voice recognition dictation system. Departure Departure Impression: Primary Impression: Nausea and vomiting Additional Impression: Gastritis Disposition: HOME, SELF-CARE Condition: GOOD Referrals: NO PCP (PCP) Scripts Ondansetron Hcl (ZOFRAN) 4 Mg Tablet 1 TAB PO Q6HRS, #10 TAB 0 Refills Prov: EREN POWERS DO 05/18/18 Famotidine (PEPCID) 20 Mg Tablet 20 MG PO BID, #20 TAB Prov: EREN POWERS DO 05/18/18 Problem Qualifiers EREN POWERS DO May 18, 2018 04:28
[2018-05-18 04:29] LABS: TOTAL PROTEIN 8.2 g/dL (6.4-8.2)
[2018-05-18 04:30] LABS: TOTAL BILIRUBIN 0.7 mg/dL (0.2-1.0)
[2018-05-18] MEDS ORDERED: ONDANSETRON PF 4 MG/2 ML VIAL. IV ONE ×3 (04:30→07:15)
[2018-05-18] MEDS ORDERED: IV NORMAL SALINE 1000ML BAG 1,000 ML IV ONE ×2 (04:30→07:00)
[2018-05-18] MEDS ORDERED: fentaNYL PF VIAL 100 MCG/2 ML VIAL IV ONE (04:30)
[2018-05-18] MEDS ORDERED: FAMOTIDINE 20 MG/2 ML VIAL IVP ONE (04:30)
[2018-05-18] MEDS ORDERED: FAMO-63 PO (05:22)
[2018-05-18] MEDS ORDERED: ONDA4TAB7 PO (05:22)
[2018-05-18] MEDS ORDERED: CONTRAST GIVEN. MC PRN (07:00)
[2018-05-18] MEDS ORDERED: IOHEXOL 300 MG/ML 100ML VIAL. IV ONE (07:30)
--- NOTE | 2018-05-18 08:25 | RAD ---
Examination: CT of the abdomen pelvis with IV contrast HISTORY: History of abdominal pain, nausea, vomiting COMPARISON: 05/08/2018 TECHNIQUE: Axial CT images of the abdomen pelvis were performed with IV contrast. Coronal and sagittal reformats are performed Exposure: One or more of the following individualized dose reduction techniques were utilized for this examination: 1. Automated exposure control 2. Adjustment of the mA and/or kV according to patient size 3. Use of iterative reconstruction technique FINDINGS: Linear airspace opacity identified in the right middle lobe, right lower lobe of the lung likely atelectasis or scarring changes. No evidence of free air identified in the abdomen. Coronary artery calcifications identified. Mild elevation of the right hemidiaphragm. The visualized liver, adrenals grossly appears unremarkable. Few calcified granulomas identified in the spleen. The stomach is mildly distended. The visualized pancreas grossly appears unremarkable. The small bowel is nondilated. The appendix is normal. Feces and gas noted in the colon. Urinary bladder is mildly distended. There is a 7.5 mm cystic structure measuring 23 Hounsfield units identified in the left kidney posteriorly in the superior portion could be a cyst or cystic lesion. The bilateral kidneys enhance symmetrically. Small calcification identified in the cortex of the left kidney likely cortical calcification. No evidence of hydronephrosis. Intramedullary nito with the hip screw identified in the right femur. Mild degenerative changes identified in the lumbar spine. IMPRESSION: 1. No acute intra-abdominal findings. 2. 7.5 mm cyst or cystic lesion identified in the left kidney. 3. Right lung base airspace opacity likely atelectasis or infiltrate with minimal elevated right hemidiaphragm. Electronically signed by: Kalia Humphries MD (05/18/2018 8:21 AM) [facility]
--- NOTE | 2018-05-18 08:42 | RAD ---
Examination: Single frontal view of the chest HISTORY: History of shortness of breath COMPARISON: 05/08/2018 FINDINGS: Low lung volumes and technique accentuates heart size and pulmonary vascularity. Mild elevation of the right hemidiaphragm. There is mild right lung base airspace opacities likely atelectasis or infiltrate. IMPRESSION: 1. Mild right lung base airspace opacities likely atelectasis or infiltrate. Mild elevation of the right hemidiaphragm unchanged. Electronically signed by: Kalia Humphries MD (05/18/2018 8:38 AM) [facility]
[2018-05-18 09:17] LABS: BASE EXCESS ABG -5 mmol/L (-3-3); HCO3 ABG 21 mmol/L (21-28); PCO2 ABG 39 mmHg (35-46); PO2 ABG 75 mmHg (65-108); SAT O2 ABG 94 % (92-99)
[2018-05-18 09:19] LABS: FIO2 ABG 21
[2018-05-18] MEDS ORDERED: AZITHRMYCN 500MG IVPB FOR OMNI 250 ML IV ONE (09:45)
[2018-05-18] MEDS: IV NORMAL SALINE 1000ML BAG 1,000 ML IV SCH (10:08)
[2018-05-18] MEDS ORDERED: ACETAMINOPHEN 325 MG TABLET. PO PRN ×2 (10:15→15:30)
[2018-05-18 10:30] VITALS: BP 137/85
[2018-05-18] MEDS: ONDANSETRON PF 4 MG/2 ML VIAL. IV PRN ×2 (12:30→21:04)
[2018-05-18 15:00] VITALS: BP 102/70
[2018-05-18] MEDS ORDERED: HYDR-971 PO (15:33)
[2018-05-18] MEDS ORDERED: ONDANSETRON ODT 4 MG TAB.RAPDIS. PO PRN (15:45)
[2018-05-18] MEDS ORDERED: guaiFENesin DM 200MG/20MG 10 ML SYRUP PO PRN (15:45)
[2018-05-18] MEDS ORDERED: ALBUTEROL SULFATE 2.5 MG/3 ML NEBU. NEB PRN (15:45)
[2018-05-18] MEDS: SUCRALFATE 1 GM TABLET. PO SCH (16:17)
[2018-05-18] MEDS: DULoxetine HCL 30 MG CAPSULE.DR PO SCH (16:18)
[2018-05-18] MEDS: LISINOPRIL 20 MG TABLET PO SCH (16:19)
[2018-05-18] MEDS: FOLIC ACID 1 MG TABLET. PO SCH (16:19)
[2018-05-18] MEDS: DICLOFENAC SODIUM 1% TOPICAL GEL 100GM TUBE. TP SCH ×3 (16:20→21:01)
[2018-05-18] MEDS: MULTIVITAMIN with MINERAL TABLET. PO SCH (16:20)
[2018-05-18] MEDS: CYANOCOBALAMIN (VITAMIN B-12) 1,000 MCG TABLET. PO SCH (16:20)
[2018-05-18] MEDS: QUEtiapine 25 MG TABLET. PO SCH (16:20)
--- NOTE | 2018-05-18 18:58 | PDOC1 ---
History and Physical Date of Admission Date of Admission 05/18/18 Identification/Chief Complaint Chief Complaint abdominal pain, feeling bad Source Source: Chart review, Patient History of Present Illness History of Present Illness Chief Complaint Chief Complaint: NAUSEA/VOMITING/DIARRHA HPI Patient is a 67 year old male with history of ETOH , pneumonia , continued alcoholism who presents with epigastric pain with nausea and vomiting which is been intermittent for the past 3 days. Patient was admitted to the hospital for the same was also treated for pneumonia. Denies hemoptysis, coffee-ground emesis or bilious emesis . Reports epigastric pain. No diarrhea. No other acute symptoms or complaints, he still coughs, Patient states he last ate 3 days ago and last drank alcohol today prior to symptom onset. Denies history of pancreatitis, small bowel obstruction. No chest pain chest tightness, bloody stools or dark tarry stools.[] Past Medical History Cardiovascular: HTN Pulmonary: Pneumonia GI: GERD, Peptic Ulcer disease Psych: Addictions Renal/: UTI, Other (BPH) Past Surgical History Past Surgical History: Total hip replacement, Total knee replacement, Tonsillectomy, Other Family History Family History: Hypertension Social History Smoke: 1 pack per day ALCOHOL: heavy Drugs: None Current Problem List Problem List Problems Medical Problems: (1) Gastritis Status: Acute (2) Nausea and vomiting Status: Acute Current Medications Current Medications Current Medications Medications (Trade) Dose Ordered Sig/Lio Start Time Stop Time Status Last Admin Dose Admin Acetaminophen (Tylenol) 650 mg PRN Q4HRS PRN 05/18/18 15:30 Acetaminophen/ Hydrocodone Bitart (Lortab 5/325) 1 tab PRN Q4HRS PRN 05/18/18 15:45 Albuterol Sulfate (Ventolin Neb Soln) 2.5 mg PRN Q6HRS PRN 05/18/18 15:45 Atorvastatin Calcium (Lipitor) 80 mg QHS 05/18/18 21:00 Azithromycin 250 ml @ 250 mls/hr 1X ONCE 05/18/18 09:45 05/18/18 10:44 DC 05/18/18 10:11 250 MLS/HR Ceftriaxone Sodium 1 gm/ Dextrose 50 ml @ 100 mls/hr Q24H 05/18/18 09:45 UNV Ceftriaxone Sodium (Rocephin) 1 gm Q24H 05/19/18 10:00 Cyanocobalamin (Vitamin B-12) 1,000 mcg DAILY 05/18/18 16:30 Diclofenac Sodium (Voltaren) 1 mckay QID 05/18/18 17:00 Duloxetine HCl (Cymbalta) 60 mg DAILY 05/18/18 16:30 05/18/18 16:18 60 MG Famotidine (Pepcid Vial) 20 mg 1X ONCE 05/18/18 04:30 05/18/18 04:31 DC 05/18/18 04:11 20 MG Famotidine (Pepcid) 20 mg BID 05/18/18 21:00 Fentanyl Citrate (Fentanyl 2ml Vial) 75 mcg 1X ONCE 05/18/18 04:30 05/18/18 04:31 DC 05/18/18 04:16 75 MCG Folic Acid (Folic Acid) 1 mg DAILY 05/18/18 16:30 Gabapentin (Neurontin) 600 mg TID 05/18/18 21:00 Guaifenesin (Robitussin Dm) 5 ml PRN Q6HRS PRN 05/18/18 15:45 Info (CONTRAST GIVEN -- Rx MONITORING) 1 each PRN DAILY PRN 05/18/18 07:00 05/20/18 06:59 Iohexol (Omnipaque 300 Mg/ml) 75 ml 1X ONCE 05/18/18 07:30 05/18/18 07:31 DC 05/18/18 07:30 75 ML Lisinopril (Prinivil) 20 mg DAILY 05/18/18 16:30 Magnesium Oxide (Magnesium Oxide) 400 mg BID 05/18/18 21:00 Multivitamins (Thera M Plus) 1 tab DAILY 05/18/18 16:30 Non-Formulary Medication (Naltrexone Hcl ) 1 tab DAILY 05/19/18 09:00 UNV Ondansetron HCl (Zofran Odt) 4 mg PRN Q8HRS PRN 05/18/18 15:45 Ondansetron HCl (Zofran) 4 mg PRN Q8HRS PRN 05/18/18 10:15 05/19/18 10:14 05/18/18 12:30 4 MG Pantoprazole Sodium (Protonix) 40 mg QHS 05/18/18 21:00 Quetiapine Fumarate (SEROquel) 150 mg QHS 05/18/18 21:00 Sodium Chloride 1,000 ml @ 80 mls/hr [id number] 05/18/18 10:30 05/19/18 10:29 05/18/18 10:08 80 MLS/HR Sucralfate (Carafate) 1 gm TIDAC 05/18/18 16:30 05/18/18 16:17 1 GM Allergies Allergies Allergies Coded Allergies Type Severity Reaction Last Updated Verified No Known Drug Allergies 02/24/15 No ROS Review of System CONSTITUTIONAL: No fever or chills EYES: No recent changes SKIN: No rash or itching CARDIOVASCULAR: No chest pain, syncope, palpitations, or edema RESPIRATORY: + SOB with exertion + cough GASTROINTESTINAL: +nausea + vomiting + abdominal pain NEUROLOGICAL: No headaches + weakness ENDOCRINE: No cold or heat intolerance GENITOURINARY: No urgency or frequency of urination MUSCULOSKELETAL: + back pain + joint pain LYMPHATICS: No enlarged lymph nodes Physical Exam Physical Exam GEN.: No apparent distress. Alert and oriented. HEENT: Head is normocephalic, atraumatic NECK: Supple. LUNGS: Clear to auscultation. HEART: RRR, S1, S2 present. Peripheral pulses intact ABDOMEN: Soft, + epigastric tenderness. Positive bowel sounds. EXTREMITIES: Without any cyanosis. NEUROLOGIC: Normal speech, normal tone PSYCHIATRIC: Normal affect, normal mood. SKIN: No ulcerations Vitals Vitals Vital Signs Date Time Temp Pulse Resp B/P (MAP) Pulse Ox O2 Delivery O2 Flow Rate FiO2 05/18/18 12:48 Room Air 05/18/18 10:30 68 20 152/80 (104) 96 05/18/18 10:30 97.7 97.7 Labs Labs Laboratory Tests Test 05/18/18 04:10 05/18/18 07:12 05/18/18 09:10 White Blood Count 11.7 x10^3/uL (4.0-11.0) Red Blood Count 4.78 x10^6/uL (4.30-5.70) Hemoglobin 14.8 g/dL (13.0-17.5) Hematocrit 42.4 % (39.0-53.0) Mean Corpuscular Volume 89 fL (79-100) Mean Corpuscular Hemoglobin 31 pg (25-35) Mean Corpuscular Hemoglobin Concent 35 g/dL (31-37) Red Cell Distribution Width 14.7 % (11.5-14.5) Platelet Count 255 x10^3/uL (140-400) Neutrophils (%) (Auto) 78 % (31-73) Lymphocytes (%) (Auto) 14 % (24-48) Monocytes (%) (Auto) 7 % (0-9) Eosinophils (%) (Auto) 1 % (0-3) Basophils (%) (Auto) 1 % (0-3) Neutrophils # (Auto) 9.1 x10^3uL (1.8-7.7) Lymphocytes # (Auto) 1.6 x10^3/uL (1.0-4.8) Monocytes # (Auto) 0.8 x10^3/uL (0.0-1.1) Eosinophils # (Auto) 0.1 x10^3/uL (0.0-0.7) Basophils # (Auto) 0.1 x10^3/uL (0.0-0.2) Sodium Level 139 mmol/L (136-145) Potassium Level 4.1 mmol/L (3.5-5.1) Chloride Level 98 mmol/L (98-107) Carbon Dioxide Level 27 mmol/L (21-32) Anion Gap 14 (6-14) Blood Urea Nitrogen 16 mg/dL (8-26) Creatinine 1.0 mg/dL (0.7-1.3) Estimated GFR (Cockcroft-Gault) 74.5 BUN/Creatinine Ratio 16 (6-20) Glucose Level 102 mg/dL (70-99) Calcium Level 9.7 mg/dL (8.5-10.1) Total Bilirubin 0.7 mg/dL (0.2-1.0) Aspartate Amino Transf (AST/SGOT) 12 U/L (15-37) Alanine Aminotransferase (ALT/SGPT) 17 U/L (16-63) Alkaline Phosphatase 115 U/L (46-116) Troponin I Quantitative < 0.017 ng/mL (0.000-0.055) < 0.017 ng/mL (0.000-0.055) Total Protein 8.2 g/dL (6.4-8.2) Albumin 4.0 g/dL (3.4-5.0) Albumin/Globulin Ratio 1.0 (1.0-1.7) Lipase 88 U/L (73-393) Amylase Level 27 U/L (25-115) Ethyl Alcohol Level < 10 mg/dL (0-10) O2 Saturation 94 % (92-99) Arterial Blood pH 7.34 (7.35-7.45) Arterial Blood pCO2 at Patient Temp 39 mmHg (35-46) Arterial Blood pO2 at Patient Temp 75 mmHg (65-108) Arterial Blood HCO3 21 mmol/L (21-28) Arterial Blood Base Excess -5 mmol/L (-3-3) FiO2 21 Laboratory Tests Test 05/18/18 04:10 05/18/18 07:12 05/18/18 09:10 White Blood Count 11.7 x10^3/uL (4.0-11.0) Red Blood Count 4.78 x10^6/uL (4.30-5.70) Hemoglobin 14.8 g/dL (13.0-17.5) Hematocrit 42.4 % (39.0-53.0) Mean Corpuscular Volume 89 fL (79-100) Mean Corpuscular Hemoglobin 31 pg (25-35) Mean Corpuscular Hemoglobin Concent 35 g/dL (31-37) Red Cell Distribution Width 14.7 % (11.5-14.5) Platelet Count 255 x10^3/uL (140-400) Neutrophils (%) (Auto) 78 % (31-73) Lymphocytes (%) (Auto) 14 % (24-48) Monocytes (%) (Auto) 7 % (0-9) Eosinophils (%) (Auto) 1 % (0-3) Basophils (%) (Auto) 1 % (0-3) Neutrophils # (Auto) 9.1 x10^3uL (1.8-7.7) Lymphocytes # (Auto) 1.6 x10^3/uL (1.0-4.8) Monocytes # (Auto) 0.8 x10^3/uL (0.0-1.1) Eosinophils # (Auto) 0.1 x10^3/uL (0.0-0.7) Basophils # (Auto) 0.1 x10^3/uL (0.0-0.2) Sodium Level 139 mmol/L (136-145) Potassium Level 4.1 mmol/L (3.5-5.1) Chloride Level 98 mmol/L (98-107) Carbon Dioxide Level 27 mmol/L (21-32) Anion Gap 14 (6-14) Blood Urea Nitrogen 16 mg/dL (8-26) Creatinine 1.0 mg/dL (0.7-1.3) Estimated GFR (Cockcroft-Gault) 74.5 BUN/Creatinine Ratio 16 (6-20) Glucose Level 102 mg/dL (70-99) Calcium Level 9.7 mg/dL (8.5-10.1) Total Bilirubin 0.7 mg/dL (0.2-1.0) Aspartate Amino Transf (AST/SGOT) 12 U/L (15-37) Alanine Aminotransferase (ALT/SGPT) 17 U/L (16-63) Alkaline Phosphatase 115 U/L (46-116) Troponin I Quantitative < 0.017 ng/mL (0.000-0.055) < 0.017 ng/mL (0.000-0.055) Total Protein 8.2 g/dL (6.4-8.2) Albumin 4.0 g/dL (3.4-5.0) Albumin/Globulin Ratio 1.0 (1.0-1.7) Lipase 88 U/L (73-393) Amylase Level 27 U/L (25-115) Ethyl Alcohol Level < 10 mg/dL (0-10) O2 Saturation 94 % (92-99) Arterial Blood pH 7.34 (7.35-7.45) Arterial Blood pCO2 at Patient Temp 39 mmHg (35-46) Arterial Blood pO2 at Patient Temp 75 mmHg (65-108) Arterial Blood HCO3 21 mmol/L (21-28) Arterial Blood Base Excess -5 mmol/L (-3-3) FiO2 21 VTE Prophylaxis Ordered VTE Prophylaxis Devices: Yes VTE Pharmacological Prophylaxi: No Assessment/Plan Assessment/Plan 1- Gastritis worsening due to not taking Carafate and PPI and drinking ETOH 2-Pneumonia RLL continue antibiotics 3-Alcoholism 4-HTN 5- BPH 6-peptic ulcer disease 7-DJD ASHELY GOMEZ MD May 18, 2018 18:57
[2018-05-18 19:00] VITALS: BP 134/73
[2018-05-18] MEDS: FAMOTIDINE 20 MG TABLET. PO SCH (20:58)
[2018-05-18] MEDS: ATORVASTATIN CALCIUM 40 MG TABLET. PO SCH (20:58)
[2018-05-18] MEDS: QUEtiapine 100 MG TABLET. PO SCH (20:58)
[2018-05-18] MEDS: MAGNESIUM OXIDE 400 MG TABLET PO SCH (20:58)
[2018-05-18] MEDS: GABAPENTIN 300 MG CAPSULE. PO SCH (20:58)
[2018-05-18] MEDS ORDERED: PANTOPRAZOLE 40 MG TABLET.DR. PO SCH (21:00)
[2018-05-18] MEDS: HYDROcodone/APAP 5/325MG 1 TAB TABLET PO PRN (21:04)
[2018-05-18 23:00] VITALS: BP 116/65
[2018-05-19] MEDS: IV NORMAL SALINE 1000ML BAG 1,000 ML IV SCH (00:02)
[2018-05-19 03:00] VITALS: BP 99/64
[2018-05-19 04:02] LABS: HEMATOCRIT 35.9 % (39.0-53.0); HEMOGLOBIN 12.4 g/dL (13.0-17.5); RED BLOOD COUNT 3.95 x10^6/uL (4.30-5.70); RED CELL DISTRIBUTION WIDTH 14.9 % (11.5-14.5); WHITE BLOOD COUNT 7.3 x10^3/uL (4.0-11.0)
[2018-05-19 04:27] LABS: ALBUMIN 3.1 g/dL (3.4-5.0); ALBUMIN/GLOBULIN RATIO 0.9 (1.0-1.7); CALCIUM 8.6 mg/dL (8.5-10.1); GFR 74.5; POTASSIUM 3.5 mmol/L (3.5-5.1); TOTAL BILIRUBIN 0.4 mg/dL (0.2-1.0); TOTAL PROTEIN 6.4 g/dL (6.4-8.2)
[2018-05-19 07:00] VITALS: BP 130/71
[2018-05-19] MEDS: GABAPENTIN 300 MG CAPSULE. PO SCH ×3 (08:15→20:34)
[2018-05-19] MEDS: SUCRALFATE 1 GM TABLET. PO SCH ×3 (08:16→17:00)
[2018-05-19] MEDS: MAGNESIUM OXIDE 400 MG TABLET PO SCH ×2 (08:16→20:35)
[2018-05-19] MEDS: FOLIC ACID 1 MG TABLET. PO SCH (08:16)
[2018-05-19] MEDS: DULoxetine HCL 30 MG CAPSULE.DR PO SCH (08:16)
[2018-05-19] MEDS: FAMOTIDINE 20 MG TABLET. PO SCH (08:17)
[2018-05-19] MEDS: MULTIVITAMIN with MINERAL TABLET. PO SCH (08:18)
[2018-05-19] MEDS: QUEtiapine 25 MG TABLET. PO SCH (08:18)
[2018-05-19] MEDS: LISINOPRIL 20 MG TABLET PO SCH (08:18)
[2018-05-19] MEDS: DICLOFENAC SODIUM 1% TOPICAL GEL 100GM TUBE. TP SCH ×4 (08:19→20:35)
[2018-05-19] MEDS: CYANOCOBALAMIN (VITAMIN B-12) 1,000 MCG TABLET. PO SCH (08:19)
[2018-05-19] MEDS: NON FORMULARY ITEM (Naltrexone Hcl 1 TAB) PO SCH (09:00)
[2018-05-19] MEDS: cefTRIAXone IV Push 1 GM VIAL. IVP SCH (10:37)
[2018-05-19 11:00] VITALS: BP 144/66
[2018-05-19] MEDS ORDERED: POTASSIUM CL 20MEQ D5-0.45NACL 1,000 ML IV ONE (12:00)
--- NOTE | 2018-05-19 12:44 | PDOC ---
Subjective: Subjective: Please see GI consult from 05/10/18. Had EGD 05/11 for n/v and h/o ulcer which showed normal esophagus, mild gastritis , and duodenitis without ulcer. Biopsies were negative for H. pylori and celiac sprue. Later admitted had significant alcohol intake prior to admission. Normal GB on US last admission. Treated w/ PPI and Carafate, symptoms improved, was discharged on 05/13. Back to ER on 05/18 and admitted. He tells me he probably started feeling sick again "pretty soon after" he was discharged. Describes decreased appetite and nausea - kept plates of food in fridge (lives at assisted living facility) because he didn't feel like eating. Unclear timing, but also reports significant retching and diffuse abd pain w/ sweating - not sure if before or after drinking a couple beers and a couple shots of bourbon to attempt to "calm his nerves." Also says he felt dizzy and that he "sees double" - apparently not a new symptom, saw a doctor for this in the past, was given bifocals which he doesn't like (but now apparently doesn't need?). Asked if the room spins or if he has a feeling that he's moving even while at rest - he couldn't really answer this. Thinks he continued PPI and Carafate at home. Now is tolerating PO w/o vomiting (ate broccoli and burger for lunch) but has intermittent nausea. No longer has abdominal pain. Yesterday had diarrhea x 5 (stools w/ some form, mixed consistency, yellow) but no stools today. Doesn't know how he'll be able to give a stool sample without urinating. Objective: Objective: No stools charted. Has PPI QHS + H2 vibha BID + Carafate TIDAC. Has stool culture ordered. Vital Signs: Vital Signs Date Time Temp Pulse Resp B/P (MAP) Pulse Ox O2 Delivery O2 Flow Rate FiO2 05/19/18 11:00 98.9 87 16 144/66 (92) 96 Room Air 98.9 Labs: Laboratory Tests Test 05/19/18 03:40 White Blood Count 7.3 x10^3/uL Red Blood Count 3.95 x10^6/uL Hemoglobin 12.4 g/dL Hematocrit 35.9 % Mean Corpuscular Volume 91 fL Mean Corpuscular Hemoglobin 32 pg Mean Corpuscular Hemoglobin Concent 35 g/dL Red Cell Distribution Width 14.9 % Platelet Count 191 x10^3/uL Sodium Level 142 mmol/L Potassium Level 3.5 mmol/L Chloride Level 106 mmol/L Carbon Dioxide Level 25 mmol/L Anion Gap 11 Blood Urea Nitrogen 12 mg/dL Creatinine 1.0 mg/dL Estimated GFR (Cockcroft-Gault) 74.5 BUN/Creatinine Ratio 12 Glucose Level 120 mg/dL Calcium Level 8.6 mg/dL Total Bilirubin 0.4 mg/dL Aspartate Amino Transf (AST/SGOT) 10 U/L Alanine Aminotransferase (ALT/SGPT) 14 U/L Alkaline Phosphatase 98 U/L Total Protein 6.4 g/dL Albumin 3.1 g/dL Albumin/Globulin Ratio 0.9 Imaging: CT A/P 05/18/18 FINDINGS: Linear airspace opacity identified in the right middle lobe, right lower lobe of the lung likely atelectasis or scarring changes. No evidence of free air identified in the abdomen. Coronary artery calcifications identified. Mild elevation of the right hemidiaphragm. The visualized liver, adrenals grossly appears unremarkable. Few calcified granulomas identified in the spleen. The stomach is mildly distended. The visualized pancreas grossly appears unremarkable. The small bowel is nondilated. The appendix is normal. Feces and gas noted in the colon. Urinary bladder is mildly distended. There is a 7.5 mm cystic structure measuring 23 Hounsfield units identified in the left kidney posteriorly in the superior portion could be a cyst or cystic lesion. The bilateral kidneys enhance symmetrically. Small calcification identified in the cortex of the left kidney likely cortical calcification. No evidence of hydronephrosis. Intramedullary nito with the hip screw identified in the right femur. Mild degenerative changes identified in the lumbar spine. IMPRESSION: 1. No acute intra-abdominal findings. 2. 7.5 mm cyst or cystic lesion identified in the left kidney. 3. Right lung base airspace opacity likely atelectasis or infiltrate with minimal elevated right hemidiaphragm. PE: GEN: NAD, watching tv HEENT: Atraumatic, PERRL LUNGS: CTAB HEART: RRR ABD: NABS, S/ND/NT EXTREMITY: No edema SKIN: No rashes, no jaundice NEURO/PSYCH: A & O 3 - poor historian A/P: Nausea - intermittently, though now tolerating PO w/ resolution of vomiting and abd pain Diarrhea - yesterday, no stools today Alcohol overuse Gastritis and duodenitis - on EGD last week, biopsies benign CRC screen - none -- Reviewed w/ Dr. Conrad - continue PPI and Carafate, await stool tests. Defer his vision complaints to primary. Seems would do better if he avoided alcohol. ARNOLD HOSKINS May 19, 2018 12:44
[2018-05-19 15:00] VITALS: BP 132/62
[2018-05-19 19:00] VITALS: BP 140/79
[2018-05-19] MEDS: QUEtiapine 100 MG TABLET. PO SCH (20:34)
[2018-05-19] MEDS: ATORVASTATIN CALCIUM 40 MG TABLET. PO SCH (20:34)
[2018-05-19] MEDS: LACTOBACILLUS RHAMNOSUS GG 1 CAPSULE. PO SCH (20:35)
[2018-05-19] MEDS: HYDROcodone/APAP 5/325MG 1 TAB TABLET PO PRN (20:40)
[2018-05-19 23:00] VITALS: BP 147/82
[2018-05-20 03:06] VITALS: BP 128/72
[2018-05-20 07:00] VITALS: BP 156/83
[2018-05-20] MEDS: SUCRALFATE 1 GM TABLET. PO SCH ×3 (07:30→18:10)
[2018-05-20] MEDS: DICLOFENAC SODIUM 1% TOPICAL GEL 100GM TUBE. TP SCH ×4 (09:00→21:00)
[2018-05-20] MEDS: NON FORMULARY ITEM (Naltrexone Hcl 1 TAB) PO SCH (09:00)
--- NOTE | 2018-05-20 10:21 | PDOC ---
Subjective: Subjective: Denies nausea, vomiting, diarrhea, and abd pain. Objective: Vital Signs: Vital Signs Date Time Temp Pulse Resp B/P (MAP) Pulse Ox O2 Delivery O2 Flow Rate FiO2 05/20/18 07:00 96.6 62 18 156/83 (107) 97 Room Air 96.6 PE: GEN: NAD, was asleep LUNGS: CTAB HEART: RRR ABD: non-tender, soft NEURO/PSYCH: A & O 3 A/P: N/v, diarrhea - resolved Alcohol overuse -- GI symptoms resolved. Look to DC? Continue PPI, avoid alcohol. ARNOLD HOSKINS May 20, 2018 10:21
[2018-05-20 11:00] VITALS: BP 160/76
[2018-05-20] MEDS: CYANOCOBALAMIN (VITAMIN B-12) 1,000 MCG TABLET. PO SCH (11:01)
[2018-05-20] MEDS: MAGNESIUM OXIDE 400 MG TABLET PO SCH ×2 (11:01→21:12)
[2018-05-20] MEDS: MULTIVITAMIN with MINERAL TABLET. PO SCH (11:01)
[2018-05-20] MEDS: DULoxetine HCL 30 MG CAPSULE.DR PO SCH (11:01)
[2018-05-20] MEDS: PANTOPRAZOLE 40 MG TABLET.DR. PO SCH (11:01)
[2018-05-20] MEDS: FOLIC ACID 1 MG TABLET. PO SCH (11:02)
[2018-05-20] MEDS: QUEtiapine 25 MG TABLET. PO SCH (11:02)
[2018-05-20] MEDS: GABAPENTIN 300 MG CAPSULE. PO SCH ×3 (11:02→21:12)
[2018-05-20] MEDS: LACTOBACILLUS RHAMNOSUS GG 1 CAPSULE. PO SCH ×2 (11:02→21:16)
[2018-05-20] MEDS: LISINOPRIL 20 MG TABLET PO SCH (11:03)
[2018-05-20] MEDS: cefTRIAXone IV Push 1 GM VIAL. IVP SCH (11:04)
[2018-05-20] MEDS: HYDROcodone/APAP 5/325MG 1 TAB TABLET PO PRN ×3 (11:38→21:11)
--- NOTE | 2018-05-20 12:58 | PDOC ---
PROGRESS NOTES Chief Complaint Chief Complaint LATE ENTRY, pt seen 05/19 1- Gastritis worsening due to not taking Carafate and PPI and drinking ETOH 2- Pneumonia RLL continue antibiotics 3- Alcoholism 4- weakness and debility 5- BPH 6- peptic ulcer disease 7-DJD Vitals Vitals Vital Signs Date Time Temp Pulse Resp B/P (MAP) Pulse Ox O2 Delivery O2 Flow Rate FiO2 05/20/18 11:38 18 97 Room Air 05/20/18 11:03 56 160/76 05/20/18 11:00 96.3 96.3 Physical Exam General: Alert, Oriented X3, Cooperative, No acute distress Heart: Regular rate Lungs: Clear Abdomen: Normal bowel sounds Extremities: No clubbing Skin: No rashes Assessment and Plan Assessmemt and Plan Problems Medical Problems: (1) Gastritis Status: Acute (2) Nausea and vomiting Status: Acute Comment Review of Relevant I have reviewed the following items christine (where applicable) has been applied. Labs Laboratory Tests Test 05/19/18 03:40 White Blood Count 7.3 x10^3/uL (4.0-11.0) Red Blood Count 3.95 x10^6/uL (4.30-5.70) Hemoglobin 12.4 g/dL (13.0-17.5) Hematocrit 35.9 % (39.0-53.0) Mean Corpuscular Volume 91 fL (79-100) Mean Corpuscular Hemoglobin 32 pg (25-35) Mean Corpuscular Hemoglobin Concent 35 g/dL (31-37) Red Cell Distribution Width 14.9 % (11.5-14.5) Platelet Count 191 x10^3/uL (140-400) Sodium Level 142 mmol/L (136-145) Potassium Level 3.5 mmol/L (3.5-5.1) Chloride Level 106 mmol/L (98-107) Carbon Dioxide Level 25 mmol/L (21-32) Anion Gap 11 (6-14) Blood Urea Nitrogen 12 mg/dL (8-26) Creatinine 1.0 mg/dL (0.7-1.3) Estimated GFR (Cockcroft-Gault) 74.5 BUN/Creatinine Ratio 12 (6-20) Glucose Level 120 mg/dL (70-99) Calcium Level 8.6 mg/dL (8.5-10.1) Total Bilirubin 0.4 mg/dL (0.2-1.0) Aspartate Amino Transf (AST/SGOT) 10 U/L (15-37) Alanine Aminotransferase (ALT/SGPT) 14 U/L (16-63) Alkaline Phosphatase 98 U/L (46-116) Total Protein 6.4 g/dL (6.4-8.2) Albumin 3.1 g/dL (3.4-5.0) Albumin/Globulin Ratio 0.9 (1.0-1.7) Medications Current Medications Ondansetron HCl (Zofran) 8 mg 1X ONCE IV Last administered on 05/18/18at 04:12 ; Start 05/18/18 at 04:30; Stop 05/18/18 at 04:31; Status DC Famotidine (Pepcid Vial) 20 mg 1X ONCE IVP Last administered on 05/18/18at 04: 11; Start 05/18/18 at 04:30; Stop 05/18/18 at 04:31; Status DC Fentanyl Citrate (Fentanyl 2ml Vial) 75 mcg 1X ONCE IV Last administered on at 04:16; Start 05/18/18 at 04:30; Stop 05/18/18 at 04:31; Status DC Sodium Chloride 1,000 ml @ 1,000 mls/hr 1X ONCE IV Last administered on at 04:16; Start 05/18/18 at 04:30; Stop 05/18/18 at 05:29; Status DC Sodium Chloride 1,000 ml @ 125 mls/hr 1X ONCE IV Last administered on at 06:47; Start 05/18/18 at 07:00; Stop 05/18/18 at 14:59; Status DC Iohexol (Omnipaque 300 Mg/ml) 75 ml 1X ONCE IV Last administered on 05/18/18at 07:30; Start 05/18/18 at 07:30; Stop 05/18/18 at 07:31; Status DC Ondansetron HCl (Zofran) 4 mg 1X ONCE IV Last administered on 05/18/18at 06:56 ; Start 05/18/18 at 07:15; Stop 05/18/18 at 07:16; Status DC Info (CONTRAST GIVEN -- Rx MONITORING) 1 each PRN DAILY PRN MC SEE COMMENTS; Start 05/18/18 at 07:00; Stop 05/20/18 at 06:59; Status DC Ondansetron HCl (Zofran) 4 mg 1X ONCE IV Last administered on 05/18/18at 07:44 ; Start 05/18/18 at 07:00; Stop 05/18/18 at 07:02; Status DC Ceftriaxone Sodium 1 gm/ Dextrose 50 ml @ 100 mls/hr Q24H IV ; Start 05/18/18 at 09:45; Status UNV Azithromycin 250 ml @ 250 mls/hr 1X ONCE IV Last administered on 05/18/18at 10 :11; Start 05/18/18 at 09:45; Stop 05/18/18 at 10:44; Status DC Ceftriaxone Sodium 50 ml @ 100 mls/hr 1X ONCE IV Last administered on at 10:08; Start 05/18/18 at 09:45; Stop 05/18/18 at 10:14; Status DC Ondansetron HCl (Zofran) 4 mg PRN Q8HRS PRN IV NAUSEA/VOMITING Last administered on 05/18/18at 21:04; Start 05/18/18 at 10:15; Stop 05/19/18 at 10:14 ; Status DC Sodium Chloride 1,000 ml @ 80 mls/hr [id number] IV Last administered on at 00:02; Start 05/18/18 at 10:30; Stop 05/19/18 at 10:29; Status DC Acetaminophen (Tylenol) 650 mg PRN Q4HRS PRN PO FEVER; Start 05/18/18 at 10:15 ; Stop 05/19/18 at 10:14; Status DC Ceftriaxone Sodium (Rocephin) 1 gm Q24H IVP Last administered on 05/20/18at 11: 04; Start 05/19/18 at 10:00 Acetaminophen (Tylenol) 650 mg PRN Q4HRS PRN PO MILD PAIN / TEMP; Start at 15:30 Cyanocobalamin (Vitamin B-12) 1,000 mcg DAILY PO Last administered on at 11:01; Start 05/18/18 at 16:30 Diclofenac Sodium (Voltaren) 1 mckay QID TP ; Start 05/18/18 at 17:00 Famotidine (Pepcid) 20 mg BID PO Last administered on 05/19/18 08:17; Start at 21:00; Stop 05/19/18 at 13:25; Status DC Folic Acid (Folic Acid) 1 mg DAILY PO Last administered on 05/20/18 11:02; Start 05/18/18 at 16:30 Lisinopril (Prinivil) 20 mg DAILY PO Last administered on 05/20/18at 11:03; Start 05/18/18 at 16:30 Albuterol Sulfate (Ventolin Neb Soln) 2.5 mg PRN Q6HRS PRN NEB SHORTNESS OF BREATH; Start 05/18/18 at 15:45 Atorvastatin Calcium (Lipitor) 80 mg QHS PO Last administered on 05/19/18at 20: 34; Start 05/18/18 at 21:00 Duloxetine HCl (Cymbalta) 60 mg DAILY PO Last administered on 05/20/18 11:01; Start 05/18/18 at 16:30 Gabapentin (Neurontin) 600 mg TID PO Last administered on 05/20/18 11:02; Start 05/18/18 at 21:00 Guaifenesin (Robitussin Dm) 5 ml PRN Q6HRS PRN PO COUGH; Start 05/18/18 at 15: 45 Magnesium Oxide (Magnesium Oxide) 400 mg BID PO Last administered on 05/20/18at 11:01; Start 05/18/18 at 21:00 Multivitamins (Thera M Plus) 1 tab DAILY PO Last administered on 05/20/18 11: 01; Start 05/18/18 at 16:30 Non-Formulary Medication (Naltrexone Hcl ) 1 tab DAILY PO ; Start 05/19/18 at 09 :00; Status UNV Pantoprazole Sodium (Protonix) 40 mg QHS PO Last administered on 05/18/18at 20: 58; Start 05/18/18 at 21:00; Stop 05/19/18 at 13:25; Status DC Ondansetron HCl (Zofran Odt) 4 mg PRN Q8HRS PRN PO NAUSEA/VOMITING; Start 05/18 at 15:45 Quetiapine Fumarate (SEROquel) 50 mg DAILY PO Last administered on 05/20/18at 11 :02; Start 05/18/18 at 16:30 Quetiapine Fumarate (SEROquel) 150 mg QHS PO Last administered on 05/19/18at 20: 34; Start 05/18/18 at 21:00 Sucralfate (Carafate) 1 gm TIDAC PO Last administered on 05/20/18at 11:02; Start 05/18/18 at 16:30 Acetaminophen/ Hydrocodone Bitart (Lortab 5/325) 1 tab PRN Q4HRS PRN PO MODERATE-SEVERE PAIN Last administered on 05/20/18at 11:38; Start 05/18/18 at 15: 45 Potassium Chloride/Dextrose/ Sod Cl 1,000 ml @ 100 mls/hr 1X ONCE IV Last administered on 05/19/18at 12:35; Start 05/19/18 at 12:00; Stop 05/19/18 at 21:59 ; Status DC Pantoprazole Sodium (Protonix) 40 mg DAILYAC PO Last administered on 05/20/18at 11:01; Start 05/20/18 at 07:30 Lactobacillus Rhamnosus (Culturelle) 1 cap BID PO Last administered on 11:02; Start 05/19/18 at 21:00 Active Scripts Active [place] 5-325 Tablet (Acetaminophen/Hydrocodone Bitart) 1 Each Tablet 1 Tab PO PRN Q6HRS PRN 2 Days Zofran (Ondansetron Hcl) 4 Mg Tablet 1 Tab PO Q6HRS Pepcid (Famotidine) 20 Mg Tablet 20 Mg PO BID Folic Acid 1 Mg Tablet 1 Mg PO DAILY 30 Days Carafate (Sucralfate) 1 Gm Tablet 1 Gm PO TIDAC 14 Days Reported Quetiapine Fumarate 100 Mg Tablet 150 Mg PO HS Ventolin Hfa Inhaler (Albuterol Sulfate) 18 Gm Hfa.aer.ad 2 Puff INH Q4HRS Robitussin Cough-Chest Dm Liq (Guaifenesin/Dextromethorphan) 237 Ml Liquid 5 Ml PO PRN Q6-8HRS PRN Tylenol (Acetaminophen) 325 Mg Tablet 2 Tab PO PRN Q4HRS Vitamin B-12 (Cyanocobalamin (Vitamin B-12)) 1,000 Mcg Tablet 1 Tab PO DAILY Quetiapine Fumarate 50 Mg Tablet 50 Mg PO DAILY Omeprazole 20 Mg Capsule.dr 1 Cap PO HS Naltrexone Hcl 50 Mg Tablet 1 Tab PO DAILY Mag-Oxide (Magnesium Oxide) 400 Mg Tablet 1 Tab PO BID Lisinopril 20 Mg Tablet 1 Tab PO DAILY Gabapentin 600 Mg Tablet 600 Mg PO TID Cymbalta (Duloxetine Hcl) 60 Mg Capsule.dr 1 Cap PO DAILY Voltaren (Diclofenac Sodium) 100 Gm Gel..gram. 4 Gm TP QID Centrum Silver Tablet (Multivits-Min/Fa/Lycopene/Lut) 1 Each Tablet 1 Each PO DAILY Atorvastatin Calcium 80 Mg Tablet 1 Tab PO HS Vitals/I & O Vital Sign - Last 24 Hours 05/19/18 05/19/18 05/19/18 05/19/18 15:00 19:00 20:00 20:40 Temp 98.9 98.5 98.9 98.5 Pulse 80 61 Resp 16 20 15 B/P (MAP) 132/62 (85) 140/79 (99) Pulse Ox 96 98 98 O2 Delivery Room Air Room Air Room Air Room Air 05/19/18 05/19/18 05/20/18 05/20/18 21:42 23:00 03:06 07:00 Temp 98.1 97.5 96.6 98.1 97.5 96.6 Pulse 63 70 62 Resp 16 20 20 18 B/P (MAP) 147/82 (103) 128/72 (90) 156/83 (107) Pulse Ox 98 95 95 97 O2 Delivery Room Air Room Air Room Air Room Air 05/20/18 05/20/18 05/20/18 11:00 11:03 11:38 Temp 96.3 96.3 Pulse 59 56 Resp 18 18 B/P (MAP) 160/76 (104) 160/76 Pulse Ox 99 97 O2 Delivery Room Air Room Air Intake and Output 05/19/18 05/19/18 05/20/18 15:00 23:00 07:00 Intake Total 1250 ml Output Total 900 ml 1400 ml 600 ml Balance -900 ml -150 ml -600 ml EMELI DUEÑAS MD May 20, 2018 12:58
--- NOTE | 2018-05-20 13:07 | PDOC ---
PROGRESS NOTES Chief Complaint Chief Complaint new weakness and debility, unsteady, EtOH withdrawl tremor 1- Gastritis worsening due to not taking Carafate and PPI and drinking ETOH 2- Pneumonia RLL continue antibiotics 3- Alcoholism 4- weakness and debility 5- BPH 6- peptic ulcer disease 7-DJD History of Present Illness History of Present Illness small tremor, + nystagmus today weak, has trouble walking, should be better to DC home soon Vitals Vitals Vital Signs Date Time Temp Pulse Resp B/P (MAP) Pulse Ox O2 Delivery O2 Flow Rate FiO2 05/20/18 11:38 18 97 Room Air 05/20/18 11:03 56 160/76 05/20/18 11:00 96.3 96.3 Physical Exam General: Alert, Oriented X3, Cooperative, No acute distress Heart: Regular rate Lungs: Clear Abdomen: Normal bowel sounds Extremities: No clubbing Skin: No rashes Assessment and Plan Assessmemt and Plan Problems Medical Problems: (1) Gastritis Status: Acute (2) Nausea and vomiting Status: Acute Comment Review of Relevant I have reviewed the following items christine (where applicable) has been applied. Labs Laboratory Tests Test 05/19/18 03:40 White Blood Count 7.3 x10^3/uL (4.0-11.0) Red Blood Count 3.95 x10^6/uL (4.30-5.70) Hemoglobin 12.4 g/dL (13.0-17.5) Hematocrit 35.9 % (39.0-53.0) Mean Corpuscular Volume 91 fL (79-100) Mean Corpuscular Hemoglobin 32 pg (25-35) Mean Corpuscular Hemoglobin Concent 35 g/dL (31-37) Red Cell Distribution Width 14.9 % (11.5-14.5) Platelet Count 191 x10^3/uL (140-400) Sodium Level 142 mmol/L (136-145) Potassium Level 3.5 mmol/L (3.5-5.1) Chloride Level 106 mmol/L (98-107) Carbon Dioxide Level 25 mmol/L (21-32) Anion Gap 11 (6-14) Blood Urea Nitrogen 12 mg/dL (8-26) Creatinine 1.0 mg/dL (0.7-1.3) Estimated GFR (Cockcroft-Gault) 74.5 BUN/Creatinine Ratio 12 (6-20) Glucose Level 120 mg/dL (70-99) Calcium Level 8.6 mg/dL (8.5-10.1) Total Bilirubin 0.4 mg/dL (0.2-1.0) Aspartate Amino Transf (AST/SGOT) 10 U/L (15-37) Alanine Aminotransferase (ALT/SGPT) 14 U/L (16-63) Alkaline Phosphatase 98 U/L (46-116) Total Protein 6.4 g/dL (6.4-8.2) Albumin 3.1 g/dL (3.4-5.0) Albumin/Globulin Ratio 0.9 (1.0-1.7) Medications Current Medications Ondansetron HCl (Zofran) 8 mg 1X ONCE IV Last administered on 05/18/18at 04:12 ; Start 05/18/18 at 04:30; Stop 05/18/18 at 04:31; Status DC Famotidine (Pepcid Vial) 20 mg 1X ONCE IVP Last administered on 05/18/18at 04: 11; Start 05/18/18 at 04:30; Stop 05/18/18 at 04:31; Status DC Fentanyl Citrate (Fentanyl 2ml Vial) 75 mcg 1X ONCE IV Last administered on at 04:16; Start 05/18/18 at 04:30; Stop 05/18/18 at 04:31; Status DC Sodium Chloride 1,000 ml @ 1,000 mls/hr 1X ONCE IV Last administered on at 04:16; Start 05/18/18 at 04:30; Stop 05/18/18 at 05:29; Status DC Sodium Chloride 1,000 ml @ 125 mls/hr 1X ONCE IV Last administered on at 06:47; Start 05/18/18 at 07:00; Stop 05/18/18 at 14:59; Status DC Iohexol (Omnipaque 300 Mg/ml) 75 ml 1X ONCE IV Last administered on 05/18/18at 07:30; Start 05/18/18 at 07:30; Stop 05/18/18 at 07:31; Status DC Ondansetron HCl (Zofran) 4 mg 1X ONCE IV Last administered on 05/18/18at 06:56 ; Start 05/18/18 at 07:15; Stop 05/18/18 at 07:16; Status DC Info (CONTRAST GIVEN -- Rx MONITORING) 1 each PRN DAILY PRN MC SEE COMMENTS; Start 05/18/18 at 07:00; Stop 05/20/18 at 06:59; Status DC Ondansetron HCl (Zofran) 4 mg 1X ONCE IV Last administered on 05/18/18at 07:44 ; Start 05/18/18 at 07:00; Stop 05/18/18 at 07:02; Status DC Ceftriaxone Sodium 1 gm/ Dextrose 50 ml @ 100 mls/hr Q24H IV ; Start 05/18/18 at 09:45; Status UNV Azithromycin 250 ml @ 250 mls/hr 1X ONCE IV Last administered on 05/18/18at 10 :11; Start 05/18/18 at 09:45; Stop 05/18/18 at 10:44; Status DC Ceftriaxone Sodium 50 ml @ 100 mls/hr 1X ONCE IV Last administered on at 10:08; Start 05/18/18 at 09:45; Stop 05/18/18 at 10:14; Status DC Ondansetron HCl (Zofran) 4 mg PRN Q8HRS PRN IV NAUSEA/VOMITING Last administered on 05/18/18at 21:04; Start 05/18/18 at 10:15; Stop 05/19/18 at 10:14 ; Status DC Sodium Chloride 1,000 ml @ 80 mls/hr [id number] IV Last administered on at 00:02; Start 05/18/18 at 10:30; Stop 05/19/18 at 10:29; Status DC Acetaminophen (Tylenol) 650 mg PRN Q4HRS PRN PO FEVER; Start 05/18/18 at 10:15 ; Stop 05/19/18 at 10:14; Status DC Ceftriaxone Sodium (Rocephin) 1 gm Q24H IVP Last administered on 05/20/18at 11: 04; Start 05/19/18 at 10:00 Acetaminophen (Tylenol) 650 mg PRN Q4HRS PRN PO MILD PAIN / TEMP; Start at 15:30 Cyanocobalamin (Vitamin B-12) 1,000 mcg DAILY PO Last administered on at 11:01; Start 05/18/18 at 16:30 Diclofenac Sodium (Voltaren) 1 mckay QID TP ; Start 05/18/18 at 17:00 Famotidine (Pepcid) 20 mg BID PO Last administered on 05/19/18at 08:17; Start at 21:00; Stop 05/19/18 at 13:25; Status DC Folic Acid (Folic Acid) 1 mg DAILY PO Last administered on 05/20/18at 11:02; Start 05/18/18 at 16:30 Lisinopril (Prinivil) 20 mg DAILY PO Last administered on 05/20/18at 11:03; Start 05/18/18 at 16:30 Albuterol Sulfate (Ventolin Neb Soln) 2.5 mg PRN Q6HRS PRN NEB SHORTNESS OF BREATH; Start 05/18/18 at 15:45 Atorvastatin Calcium (Lipitor) 80 mg QHS PO Last administered on 05/19/18at 20: 34; Start 05/18/18 at 21:00 Duloxetine HCl (Cymbalta) 60 mg DAILY PO Last administered on 05/20/18at 11:01; Start 05/18/18 at 16:30 Gabapentin (Neurontin) 600 mg TID PO Last administered on 05/20/18at 11:02; Start 05/18/18 at 21:00 Guaifenesin (Robitussin Dm) 5 ml PRN Q6HRS PRN PO COUGH; Start 05/18/18 at 15: 45 Magnesium Oxide (Magnesium Oxide) 400 mg BID PO Last administered on 05/20/18at 11:01; Start 05/18/18 at 21:00 Multivitamins (Thera M Plus) 1 tab DAILY PO Last administered on 05/20/18at 11: 01; Start 05/18/18 at 16:30 Non-Formulary Medication (Naltrexone Hcl ) 1 tab DAILY PO ; Start 05/19/18 at 09 :00; Status UNV Pantoprazole Sodium (Protonix) 40 mg QHS PO Last administered on 05/18/18at 20: 58; Start 05/18/18 at 21:00; Stop 05/19/18 at 13:25; Status DC Ondansetron HCl (Zofran Odt) 4 mg PRN Q8HRS PRN PO NAUSEA/VOMITING; Start 05/18 at 15:45 Quetiapine Fumarate (SEROquel) 50 mg DAILY PO Last administered on 05/20/18 11 :02; Start 05/18/18 at 16:30 Quetiapine Fumarate (SEROquel) 150 mg QHS PO Last administered on 05/19/18at 20: 34; Start 05/18/18 at 21:00 Sucralfate (Carafate) 1 gm TIDAC PO Last administered on 05/20/18at 11:02; Start 05/18/18 at 16:30 Acetaminophen/ Hydrocodone Bitart (Lortab 5/325) 1 tab PRN Q4HRS PRN PO MODERATE-SEVERE PAIN Last administered on 05/20/18 11:38; Start 05/18/18 at 15: 45 Potassium Chloride/Dextrose/ Sod Cl 1,000 ml @ 100 mls/hr 1X ONCE IV Last administered on 05/19/18at 12:35; Start 05/19/18 at 12:00; Stop 05/19/18 at 21:59 ; Status DC Pantoprazole Sodium (Protonix) 40 mg DAILYAC PO Last administered on 05/20/18 11:01; Start 05/20/18 at 07:30 Lactobacillus Rhamnosus (Culturelle) 1 cap BID PO Last administered on 11:02; Start 05/19/18 at 21:00 Active Scripts Active [place] 5-325 Tablet (Acetaminophen/Hydrocodone Bitart) 1 Each Tablet 1 Tab PO PRN Q6HRS PRN 2 Days Zofran (Ondansetron Hcl) 4 Mg Tablet 1 Tab PO Q6HRS Pepcid (Famotidine) 20 Mg Tablet 20 Mg PO BID Folic Acid 1 Mg Tablet 1 Mg PO DAILY 30 Days Carafate (Sucralfate) 1 Gm Tablet 1 Gm PO TIDAC 14 Days Reported Quetiapine Fumarate 100 Mg Tablet 150 Mg PO HS Ventolin Hfa Inhaler (Albuterol Sulfate) 18 Gm Hfa.aer.ad 2 Puff INH Q4HRS Robitussin Cough-Chest Dm Liq (Guaifenesin/Dextromethorphan) 237 Ml Liquid 5 Ml PO PRN Q6-8HRS PRN Tylenol (Acetaminophen) 325 Mg Tablet 2 Tab PO PRN Q4HRS Vitamin B-12 (Cyanocobalamin (Vitamin B-12)) 1,000 Mcg Tablet 1 Tab PO DAILY Quetiapine Fumarate 50 Mg Tablet 50 Mg PO DAILY Omeprazole 20 Mg Capsule.dr 1 Cap PO HS Naltrexone Hcl 50 Mg Tablet 1 Tab PO DAILY Mag-Oxide (Magnesium Oxide) 400 Mg Tablet 1 Tab PO BID Lisinopril 20 Mg Tablet 1 Tab PO DAILY Gabapentin 600 Mg Tablet 600 Mg PO TID Cymbalta (Duloxetine Hcl) 60 Mg Capsule.dr 1 Cap PO DAILY Voltaren (Diclofenac Sodium) 100 Gm Gel..gram. 4 Gm TP QID Centrum Silver Tablet (Multivits-Min/Fa/Lycopene/Lut) 1 Each Tablet 1 Each PO DAILY Atorvastatin Calcium 80 Mg Tablet 1 Tab PO HS Vitals/I & O Vital Sign - Last 24 Hours 05/19/18 05/19/18 05/19/18 05/19/18 15:00 19:00 20:00 20:40 Temp 98.9 98.5 98.9 98.5 Pulse 80 61 Resp 16 20 15 B/P (MAP) 132/62 (85) 140/79 (99) Pulse Ox 96 98 98 O2 Delivery Room Air Room Air Room Air Room Air 05/19/18 05/19/18 05/20/18 05/20/18 21:42 23:00 03:06 07:00 Temp 98.1 97.5 96.6 98.1 97.5 96.6 Pulse 63 70 62 Resp 16 20 20 18 B/P (MAP) 147/82 (103) 128/72 (90) 156/83 (107) Pulse Ox 98 95 95 97 O2 Delivery Room Air Room Air Room Air Room Air 05/20/18 05/20/18 05/20/18 11:00 11:03 11:38 Temp 96.3 96.3 Pulse 59 56 Resp 18 18 B/P (MAP) 160/76 (104) 160/76 Pulse Ox 99 97 O2 Delivery Room Air Room Air Intake and Output 05/19/18 05/19/18 05/20/18 15:00 23:00 07:00 Intake Total 1250 ml Output Total 900 ml 1400 ml 600 ml Balance -900 ml -150 ml -600 ml EMELI DUEÑAS MD May 20, 2018 13:07
[2018-05-20 15:00] VITALS: BP 140/81
[2018-05-20] MEDS: CEPHALEXIN 250 MG CAPSULE. PO SCH ×2 (15:43→21:12)
[2018-05-20 19:00] VITALS: BP 149/74
[2018-05-20] MEDS: QUEtiapine 100 MG TABLET. PO SCH (21:11)
[2018-05-20] MEDS: ATORVASTATIN CALCIUM 40 MG TABLET. PO SCH (21:11)
[2018-05-20 22:56] VITALS: BP 171/72
[2018-05-21 02:50] VITALS: BP 166/76
[2018-05-21 07:00] VITALS: BP 172/92
[2018-05-21] MEDS: CYANOCOBALAMIN (VITAMIN B-12) 1,000 MCG TABLET. PO SCH (08:33)
[2018-05-21] MEDS: PANTOPRAZOLE 40 MG TABLET.DR. PO SCH (08:33)
[2018-05-21] MEDS: MULTIVITAMIN with MINERAL TABLET. PO SCH (08:34)
[2018-05-21] MEDS: QUEtiapine 25 MG TABLET. PO SCH (08:34)
[2018-05-21] MEDS: LACTOBACILLUS RHAMNOSUS GG 1 CAPSULE. PO SCH ×2 (08:34→20:50)
[2018-05-21] MEDS: FOLIC ACID 1 MG TABLET. PO SCH (08:34)
[2018-05-21] MEDS: MAGNESIUM OXIDE 400 MG TABLET PO SCH ×2 (08:34→20:51)
[2018-05-21] MEDS: SUCRALFATE 1 GM TABLET. PO SCH ×3 (08:34→15:56)
[2018-05-21] MEDS: GABAPENTIN 300 MG CAPSULE. PO SCH ×3 (08:35→20:50)
[2018-05-21] MEDS: LISINOPRIL 20 MG TABLET PO SCH (08:35)
[2018-05-21] MEDS: CEPHALEXIN 250 MG CAPSULE. PO SCH ×3 (08:35→20:51)
[2018-05-21] MEDS: DICLOFENAC SODIUM 1% TOPICAL GEL 100GM TUBE. TP SCH ×4 (08:37→20:58)
[2018-05-21] MEDS: HYDROcodone/APAP 5/325MG 1 TAB TABLET PO PRN ×2 (08:39→20:57)
[2018-05-21] MEDS: NON FORMULARY ITEM (Naltrexone Hcl 1 TAB) PO SCH (09:00)
[2018-05-21 11:00] VITALS: BP 143/74
[2018-05-21] MEDS: DULoxetine HCL 30 MG CAPSULE.DR PO SCH (11:01)
[2018-05-21] MEDS ORDERED: DICYCLOMINE HCL 10 MG CAPSULE PO PRN (11:30)
--- NOTE | 2018-05-21 11:30 | PDOC ---
Subjective: Subjective: Doing better but stomach still acts up. Objective: Vital Signs: Vital Signs Date Time Temp Pulse Resp B/P (MAP) Pulse Ox O2 Delivery O2 Flow Rate FiO2 05/21/18 09:40 95 Room Air 05/21/18 08:35 64 172/92 05/21/18 07:00 97.9 18 97.9 Labs: Laboratory Tests Test 05/21/18 07:54 Glucose (Fingerstick) 103 mg/dL PE: GEN: NAD LUNGS: CTAB HEART: RRR ABD: soft, non-distended NEURO/PSYCH: A & O 3 A/P: N/v - better -- Would do better avoiding alcohol. Continue PPI, also has Carafate. Could try dicyclomine PRN. DC per [place]/ ARNOLD HOSKINS May 21, 2018 11:30
--- NOTE | 2018-05-21 13:17 | PDOC ---
PROGRESS NOTES Chief Complaint Chief Complaint new weakness and debility, unsteady, EtOH withdrawl tremor 1- Gastritis worsening due to not taking Carafate and PPI and drinking ETOH 2- Pneumonia RLL continue antibiotics 3- Alcoholism 4- weakness and debility 5- BPH 6- peptic ulcer disease 7-DJD History of Present Illness History of Present Illness small tremor, + nystagmus today weak, has trouble walking, should be better to DC home soon Vitals Vitals Vital Signs Date Time Temp Pulse Resp B/P (MAP) Pulse Ox O2 Delivery O2 Flow Rate FiO2 05/21/18 11:00 97.5 65 18 143/74 (97) 98 Room Air 97.5 Physical Exam General: Alert, Oriented X3, Cooperative, No acute distress Heart: Regular rate Lungs: Clear Abdomen: Normal bowel sounds Extremities: No clubbing Skin: No rashes Labs LABS Laboratory Tests Test 05/21/18 07:54 Glucose (Fingerstick) 103 mg/dL (70-99) Assessment and Plan Assessmemt and Plan Problems Medical Problems: (1) Gastritis Status: Acute (2) Nausea and vomiting Status: Acute Comment Review of Relevant I have reviewed the following items christine (where applicable) has been applied. Labs Laboratory Tests Test 05/19/18 20:50 05/21/18 07:54 Nasal Screen MRSA (PCR) Negative (Negative) Glucose (Fingerstick) 103 mg/dL (70-99) Laboratory Tests Test 05/21/18 07:54 Glucose (Fingerstick) 103 mg/dL (70-99) Medications Current Medications Ondansetron HCl (Zofran) 8 mg 1X ONCE IV Last administered on 05/18/18at 04:12 ; Start 05/18/18 at 04:30; Stop 05/18/18 at 04:31; Status DC Famotidine (Pepcid Vial) 20 mg 1X ONCE IVP Last administered on 05/18/18at 04: 11; Start 05/18/18 at 04:30; Stop 05/18/18 at 04:31; Status DC Fentanyl Citrate (Fentanyl 2ml Vial) 75 mcg 1X ONCE IV Last administered on at 04:16; Start 05/18/18 at 04:30; Stop 05/18/18 at 04:31; Status DC Sodium Chloride 1,000 ml @ 1,000 mls/hr 1X ONCE IV Last administered on at 04:16; Start 05/18/18 at 04:30; Stop 05/18/18 at 05:29; Status DC Sodium Chloride 1,000 ml @ 125 mls/hr 1X ONCE IV Last administered on at 06:47; Start 05/18/18 at 07:00; Stop 05/18/18 at 14:59; Status DC Iohexol (Omnipaque 300 Mg/ml) 75 ml 1X ONCE IV Last administered on 05/18/18at 07:30; Start 05/18/18 at 07:30; Stop 05/18/18 at 07:31; Status DC Ondansetron HCl (Zofran) 4 mg 1X ONCE IV Last administered on 05/18/18at 06:56 ; Start 05/18/18 at 07:15; Stop 05/18/18 at 07:16; Status DC Info (CONTRAST GIVEN -- Rx MONITORING) 1 each PRN DAILY PRN MC SEE COMMENTS; Start 05/18/18 at 07:00; Stop 05/20/18 at 06:59; Status DC Ondansetron HCl (Zofran) 4 mg 1X ONCE IV Last administered on 05/18/18at 07:44 ; Start 05/18/18 at 07:00; Stop 05/18/18 at 07:02; Status DC Ceftriaxone Sodium 1 gm/ Dextrose 50 ml @ 100 mls/hr Q24H IV ; Start 05/18/18 at 09:45; Status UNV Azithromycin 250 ml @ 250 mls/hr 1X ONCE IV Last administered on 05/18/18at 10 :11; Start 05/18/18 at 09:45; Stop 05/18/18 at 10:44; Status DC Ceftriaxone Sodium 50 ml @ 100 mls/hr 1X ONCE IV Last administered on at 10:08; Start 05/18/18 at 09:45; Stop 05/18/18 at 10:14; Status DC Ondansetron HCl (Zofran) 4 mg PRN Q8HRS PRN IV NAUSEA/VOMITING Last administered on 05/18/18at 21:04; Start 05/18/18 at 10:15; Stop 05/19/18 at 10:14 ; Status DC Sodium Chloride 1,000 ml @ 80 mls/hr [id number] IV Last administered on at 00:02; Start 05/18/18 at 10:30; Stop 05/19/18 at 10:29; Status DC Acetaminophen (Tylenol) 650 mg PRN Q4HRS PRN PO FEVER; Start 05/18/18 at 10:15 ; Stop 05/19/18 at 10:14; Status DC Ceftriaxone Sodium (Rocephin) 1 gm Q24H IVP Last administered on 05/20/18at 11: 04; Start 05/19/18 at 10:00; Stop 05/20/18 at 12:59; Status DC Acetaminophen (Tylenol) 650 mg PRN Q4HRS PRN PO MILD PAIN / TEMP; Start at 15:30 Cyanocobalamin (Vitamin B-12) 1,000 mcg DAILY PO Last administered on at 08:33; Start 05/18/18 at 16:30 Diclofenac Sodium (Voltaren) 1 mckay QID TP ; Start 05/18/18 at 17:00 Famotidine (Pepcid) 20 mg BID PO Last administered on 05/19/18at 08:17; Start at 21:00; Stop 05/19/18 at 13:25; Status DC Folic Acid (Folic Acid) 1 mg DAILY PO Last administered on 05/21/18at 08:34; Start 05/18/18 at 16:30 Lisinopril (Prinivil) 20 mg DAILY PO Last administered on 05/21/18at 08:35; Start 05/18/18 at 16:30 Albuterol Sulfate (Ventolin Neb Soln) 2.5 mg PRN Q6HRS PRN NEB SHORTNESS OF BREATH; Start 05/18/18 at 15:45 Atorvastatin Calcium (Lipitor) 80 mg QHS PO Last administered on 05/20/18at 21: 11; Start 05/18/18 at 21:00 Duloxetine HCl (Cymbalta) 60 mg DAILY PO Last administered on 05/21/18at 11:01; Start 05/18/18 at 16:30 Gabapentin (Neurontin) 600 mg TID PO Last administered on 05/21/18at 08:35; Start 05/18/18 at 21:00 Guaifenesin (Robitussin Dm) 5 ml PRN Q6HRS PRN PO COUGH; Start 05/18/18 at 15: 45 Magnesium Oxide (Magnesium Oxide) 400 mg BID PO Last administered on 05/21/18 08:34; Start 05/18/18 at 21:00 Multivitamins (Thera M Plus) 1 tab DAILY PO Last administered on 05/21/18 08: 34; Start 05/18/18 at 16:30 Non-Formulary Medication (Naltrexone Hcl ) 1 tab DAILY PO ; Start 05/19/18 at 09 :00; Status UNV Pantoprazole Sodium (Protonix) 40 mg QHS PO Last administered on 05/18/18at 20: 58; Start 05/18/18 at 21:00; Stop 05/19/18 at 13:25; Status DC Ondansetron HCl (Zofran Odt) 4 mg PRN Q8HRS PRN PO NAUSEA/VOMITING Last administered on 05/21/18 11:00; Start 05/18/18 at 15:45 Quetiapine Fumarate (SEROquel) 50 mg DAILY PO Last administered on 05/21/18 08 :34; Start 05/18/18 at 16:30 Quetiapine Fumarate (SEROquel) 150 mg QHS PO Last administered on 05/20/18 21: 11; Start 05/18/18 at 21:00 Sucralfate (Carafate) 1 gm TIDAC PO Last administered on 05/21/18at 12:37; Start 05/18/18 at 16:30 Acetaminophen/ Hydrocodone Bitart (Lortab 5/325) 1 tab PRN Q4HRS PRN PO MODERATE-SEVERE PAIN Last administered on 05/21/18at 08:39; Start 05/18/18 at 15: 45 Potassium Chloride/Dextrose/ Sod Cl 1,000 ml @ 100 mls/hr 1X ONCE IV Last administered on 05/19/18 12:35; Start 05/19/18 at 12:00; Stop 05/19/18 at 21:59 ; Status DC Pantoprazole Sodium (Protonix) 40 mg DAILYAC PO Last administered on 05/21/18 08:33; Start 05/20/18 at 07:30 Lactobacillus Rhamnosus (Culturelle) 1 cap BID PO Last administered on 08:34; Start 05/19/18 at 21:00 Cephalexin HCl (Keflex) 500 mg TID PO Last administered on 05/21/18at 08:35; Start 05/20/18 at 14:00 Dicyclomine HCl (Bentyl) 10 mg PRN QID PRN PO abd pain; Start 05/21/18 at 11:30 Active Scripts Active [place] 5-325 Tablet (Acetaminophen/Hydrocodone Bitart) 1 Each Tablet 1 Tab PO PRN Q6HRS PRN 2 Days Zofran (Ondansetron Hcl) 4 Mg Tablet 1 Tab PO Q6HRS Pepcid (Famotidine) 20 Mg Tablet 20 Mg PO BID Folic Acid 1 Mg Tablet 1 Mg PO DAILY 30 Days Carafate (Sucralfate) 1 Gm Tablet 1 Gm PO TIDAC 14 Days Reported Quetiapine Fumarate 100 Mg Tablet 150 Mg PO HS Ventolin Hfa Inhaler (Albuterol Sulfate) 18 Gm Hfa.aer.ad 2 Puff INH Q4HRS Robitussin Cough-Chest Dm Liq (Guaifenesin/Dextromethorphan) 237 Ml Liquid 5 Ml PO PRN Q6-8HRS PRN Tylenol (Acetaminophen) 325 Mg Tablet 2 Tab PO PRN Q4HRS Vitamin B-12 (Cyanocobalamin (Vitamin B-12)) 1,000 Mcg Tablet 1 Tab PO DAILY Quetiapine Fumarate 50 Mg Tablet 50 Mg PO DAILY Omeprazole 20 Mg Capsule.dr 1 Cap PO HS Naltrexone Hcl 50 Mg Tablet 1 Tab PO DAILY Mag-Oxide (Magnesium Oxide) 400 Mg Tablet 1 Tab PO BID Lisinopril 20 Mg Tablet 1 Tab PO DAILY Gabapentin 600 Mg Tablet 600 Mg PO TID Cymbalta (Duloxetine Hcl) 60 Mg Capsule.dr 1 Cap PO DAILY Voltaren (Diclofenac Sodium) 100 Gm Gel..gram. 4 Gm TP QID Centrum Silver Tablet (Multivits-Min/Fa/Lycopene/Lut) 1 Each Tablet 1 Each PO DAILY Atorvastatin Calcium 80 Mg Tablet 1 Tab PO HS Vitals/I & O Vital Sign - Last 24 Hours 05/20/18 05/20/18 05/20/18 05/20/18 15:00 15:58 16:58 19:00 Temp 96.8 97.5 96.8 97.5 Pulse 68 62 Resp 18 18 18 18 B/P (MAP) 140/81 (100) 149/74 (99) Pulse Ox 96 96 96 O2 Delivery Room Air Room Air Room Air 05/20/18 05/20/18 05/20/18 05/21/18 20:00 21:11 22:56 02:50 Temp 97.5 97.5 97.5 97.5 Pulse 66 62 Resp 18 18 B/P (MAP) 171/72 (105) 166/76 (106) Pulse Ox 94 94 O2 Delivery Room Air Room Air Room Air Room Air 05/21/18 05/21/18 05/21/18 05/21/18 07:00 07:30 08:35 08:39 Temp 97.9 97.9 Pulse 64 64 Resp 18 B/P (MAP) 172/92 (118) 172/92 Pulse Ox 95 95 O2 Delivery Room Air Room Air Room Air 05/21/18 05/21/18 09:40 11:00 Temp 97.5 97.5 Pulse 65 Resp 18 B/P (MAP) 143/74 (97) Pulse Ox 95 98 O2 Delivery Room Air Room Air Intake and Output 05/20/18 05/20/18 05/21/18 15:00 23:00 07:00 Intake Total 180 ml 500 ml 240 ml Output Total 900 ml 800 ml Balance 180 ml -400 ml -560 ml EMELI DUEÑAS MD May 21, 2018 13:17
[2018-05-21 15:00] VITALS: BP 125/61
[2018-05-21 19:00] VITALS: BP 154/92
[2018-05-21] MEDS: ATORVASTATIN CALCIUM 40 MG TABLET. PO SCH (20:50)
[2018-05-21] MEDS: QUEtiapine 100 MG TABLET. PO SCH (20:51)
[2018-05-21 23:00] VITALS: BP 160/82
[2018-05-22 03:00] VITALS: BP 141/73
[2018-05-22] MEDS: SUCRALFATE 1 GM TABLET. PO SCH ×3 (06:13→16:38)
[2018-05-22 07:00] VITALS: BP 138/91
[2018-05-22] MEDS: PANTOPRAZOLE 40 MG TABLET.DR. PO SCH (07:36)
[2018-05-22] MEDS: NON FORMULARY ITEM (Naltrexone Hcl 1 TAB) PO SCH (09:00)
[2018-05-22] MEDS: DICLOFENAC SODIUM 1% TOPICAL GEL 100GM TUBE. TP SCH ×4 (09:00→21:00)
[2018-05-22] MEDS: GABAPENTIN 300 MG CAPSULE. PO SCH ×3 (09:03→21:49)
[2018-05-22] MEDS: LACTOBACILLUS RHAMNOSUS GG 1 CAPSULE. PO SCH ×2 (09:03→21:51)
[2018-05-22] MEDS: QUEtiapine 25 MG TABLET. PO SCH (09:03)
[2018-05-22] MEDS: CYANOCOBALAMIN (VITAMIN B-12) 1,000 MCG TABLET. PO SCH (09:03)
[2018-05-22] MEDS: MAGNESIUM OXIDE 400 MG TABLET PO SCH ×2 (09:03→21:49)
[2018-05-22] MEDS: CEPHALEXIN 250 MG CAPSULE. PO SCH ×3 (09:03→21:49)
[2018-05-22] MEDS: DULoxetine HCL 30 MG CAPSULE.DR PO SCH (09:04)
[2018-05-22] MEDS: MULTIVITAMIN with MINERAL TABLET. PO SCH (09:04)
[2018-05-22] MEDS: FOLIC ACID 1 MG TABLET. PO SCH (09:04)
[2018-05-22] MEDS: LISINOPRIL 20 MG TABLET PO SCH (09:04)
[2018-05-22] MEDS: HYDROcodone/APAP 5/325MG 1 TAB TABLET PO PRN ×2 (09:09→21:50)
--- NOTE | 2018-05-22 10:07 | PDOC ---
PROGRESS NOTES Chief Complaint Chief Complaint new weakness and debility, unsteady, EtOH withdrawl tremor 1- Gastritis worsening due to not taking Carafate and PPI and drinking ETOH 2- Pneumonia RLL continue antibiotics 3- Alcoholism 4- weakness and debility 5- BPH 6- peptic ulcer disease 7-DJD History of Present Illness History of Present Illness acute abd pain this AM, had eaten a normal breakfast, now doubled over in pain , with nausea will check KUB, add mult stool softeners small tremor, nystagmus gone weak, has trouble walking, should be better to DC home soon Vitals Vitals Vital Signs Date Time Temp Pulse Resp B/P (MAP) Pulse Ox O2 Delivery O2 Flow Rate FiO2 05/22/18 09:09 18 Room Air 05/22/18 09:04 67 138/91 05/22/18 07:00 96.8 96 96.8 Physical Exam General: Alert, Oriented X3, Cooperative, No acute distress Heart: Regular rate Lungs: Clear Abdomen: Normal bowel sounds, Soft, Other (mild tender, sounds normal) Extremities: No clubbing Skin: No rashes Assessment and Plan Assessmemt and Plan Problems Medical Problems: (1) Gastritis Status: Acute (2) Nausea and vomiting Status: Acute Comment Review of Relevant I have reviewed the following items christine (where applicable) has been applied. Labs Laboratory Tests Test 05/21/18 07:54 Glucose (Fingerstick) 103 mg/dL (70-99) Medications Current Medications Ondansetron HCl (Zofran) 8 mg 1X ONCE IV Last administered on 05/18/18at 04:12 ; Start 05/18/18 at 04:30; Stop 05/18/18 at 04:31; Status DC Famotidine (Pepcid Vial) 20 mg 1X ONCE IVP Last administered on 05/18/18at 04: 11; Start 05/18/18 at 04:30; Stop 05/18/18 at 04:31; Status DC Fentanyl Citrate (Fentanyl 2ml Vial) 75 mcg 1X ONCE IV Last administered on at 04:16; Start 05/18/18 at 04:30; Stop 05/18/18 at 04:31; Status DC Sodium Chloride 1,000 ml @ 1,000 mls/hr 1X ONCE IV Last administered on at 04:16; Start 05/18/18 at 04:30; Stop 05/18/18 at 05:29; Status DC Sodium Chloride 1,000 ml @ 125 mls/hr 1X ONCE IV Last administered on at 06:47; Start 05/18/18 at 07:00; Stop 05/18/18 at 14:59; Status DC Iohexol (Omnipaque 300 Mg/ml) 75 ml 1X ONCE IV Last administered on 05/18/18at 07:30; Start 05/18/18 at 07:30; Stop 05/18/18 at 07:31; Status DC Ondansetron HCl (Zofran) 4 mg 1X ONCE IV Last administered on 05/18/18at 06:56 ; Start 05/18/18 at 07:15; Stop 05/18/18 at 07:16; Status DC Info (CONTRAST GIVEN -- Rx MONITORING) 1 each PRN DAILY PRN MC SEE COMMENTS; Start 05/18/18 at 07:00; Stop 05/20/18 at 06:59; Status DC Ondansetron HCl (Zofran) 4 mg 1X ONCE IV Last administered on 05/18/18at 07:44 ; Start 05/18/18 at 07:00; Stop 05/18/18 at 07:02; Status DC Ceftriaxone Sodium 1 gm/ Dextrose 50 ml @ 100 mls/hr Q24H IV ; Start 05/18/18 at 09:45; Status UNV Azithromycin 250 ml @ 250 mls/hr 1X ONCE IV Last administered on 05/18/18at 10 :11; Start 05/18/18 at 09:45; Stop 05/18/18 at 10:44; Status DC Ceftriaxone Sodium 50 ml @ 100 mls/hr 1X ONCE IV Last administered on at 10:08; Start 05/18/18 at 09:45; Stop 05/18/18 at 10:14; Status DC Ondansetron HCl (Zofran) 4 mg PRN Q8HRS PRN IV NAUSEA/VOMITING Last administered on 05/18/18at 21:04; Start 05/18/18 at 10:15; Stop 05/19/18 at 10:14 ; Status DC Sodium Chloride 1,000 ml @ 80 mls/hr [id number] IV Last administered on at 00:02; Start 05/18/18 at 10:30; Stop 05/19/18 at 10:29; Status DC Acetaminophen (Tylenol) 650 mg PRN Q4HRS PRN PO FEVER; Start 05/18/18 at 10:15 ; Stop 05/19/18 at 10:14; Status DC Ceftriaxone Sodium (Rocephin) 1 gm Q24H IVP Last administered on 05/20/18at 11: 04; Start 05/19/18 at 10:00; Stop 05/20/18 at 12:59; Status DC Acetaminophen (Tylenol) 650 mg PRN Q4HRS PRN PO MILD PAIN / TEMP; Start at 15:30 Cyanocobalamin (Vitamin B-12) 1,000 mcg DAILY PO Last administered on at 09:03; Start 05/18/18 at 16:30 Diclofenac Sodium (Voltaren) 1 mckay QID TP ; Start 05/18/18 at 17:00 Famotidine (Pepcid) 20 mg BID PO Last administered on 05/19/18at 08:17; Start at 21:00; Stop 05/19/18 at 13:25; Status DC Folic Acid (Folic Acid) 1 mg DAILY PO Last administered on 05/22/18at 09:04; Start 05/18/18 at 16:30 Lisinopril (Prinivil) 20 mg DAILY PO Last administered on 05/22/18at 09:04; Start 05/18/18 at 16:30 Albuterol Sulfate (Ventolin Neb Soln) 2.5 mg PRN Q6HRS PRN NEB SHORTNESS OF BREATH; Start 05/18/18 at 15:45 Atorvastatin Calcium (Lipitor) 80 mg QHS PO Last administered on 05/21/18at 20: 50; Start 05/18/18 at 21:00 Duloxetine HCl (Cymbalta) 60 mg DAILY PO Last administered on 05/22/18at 09:04; Start 05/18/18 at 16:30 Gabapentin (Neurontin) 600 mg TID PO Last administered on 05/22/18at 09:03; Start 05/18/18 at 21:00 Guaifenesin (Robitussin Dm) 5 ml PRN Q6HRS PRN PO COUGH; Start 05/18/18 at 15: 45 Magnesium Oxide (Magnesium Oxide) 400 mg BID PO Last administered on 05/22/18 09:03; Start 05/18/18 at 21:00 Multivitamins (Thera M Plus) 1 tab DAILY PO Last administered on 05/22/18 09: 04; Start 05/18/18 at 16:30 Non-Formulary Medication (Naltrexone Hcl ) 1 tab DAILY PO ; Start 05/19/18 at 09 :00; Status UNV Pantoprazole Sodium (Protonix) 40 mg QHS PO Last administered on 05/18/18at 20: 58; Start 05/18/18 at 21:00; Stop 05/19/18 at 13:25; Status DC Ondansetron HCl (Zofran Odt) 4 mg PRN Q8HRS PRN PO NAUSEA/VOMITING Last administered on 05/21/18 11:00; Start 05/18/18 at 15:45 Quetiapine Fumarate (SEROquel) 50 mg DAILY PO Last administered on 05/22/18 09 :03; Start 05/18/18 at 16:30 Quetiapine Fumarate (SEROquel) 150 mg QHS PO Last administered on 05/21/18at 20: 51; Start 05/18/18 at 21:00 Sucralfate (Carafate) 1 gm TIDAC PO Last administered on 05/22/18 06:13; Start 05/18/18 at 16:30 Acetaminophen/ Hydrocodone Bitart (Lortab 5/325) 1 tab PRN Q4HRS PRN PO MODERATE-SEVERE PAIN Last administered on 05/22/18 09:09; Start 05/18/18 at 15: 45 Potassium Chloride/Dextrose/ Sod Cl 1,000 ml @ 100 mls/hr 1X ONCE IV Last administered on 05/19/18 12:35; Start 05/19/18 at 12:00; Stop 05/19/18 at 21:59 ; Status DC Pantoprazole Sodium (Protonix) 40 mg DAILYAC PO Last administered on 05/22/18 07:36; Start 05/20/18 at 07:30 Lactobacillus Rhamnosus (Culturelle) 1 cap BID PO Last administered on 09:03; Start 05/19/18 at 21:00 Cephalexin HCl (Keflex) 500 mg TID PO Last administered on 05/22/18at 09:03; Start 05/20/18 at 14:00 Dicyclomine HCl (Bentyl) 10 mg PRN QID PRN PO abd pain; Start 05/21/18 at 11:30 Active Scripts Active [place] 5-325 Tablet (Acetaminophen/Hydrocodone Bitart) 1 Each Tablet 1 Tab PO PRN Q6HRS PRN 2 Days Zofran (Ondansetron Hcl) 4 Mg Tablet 1 Tab PO Q6HRS Pepcid (Famotidine) 20 Mg Tablet 20 Mg PO BID Folic Acid 1 Mg Tablet 1 Mg PO DAILY 30 Days Carafate (Sucralfate) 1 Gm Tablet 1 Gm PO TIDAC 14 Days Reported Quetiapine Fumarate 100 Mg Tablet 150 Mg PO HS Ventolin Hfa Inhaler (Albuterol Sulfate) 18 Gm Hfa.aer.ad 2 Puff INH Q4HRS Robitussin Cough-Chest Dm Liq (Guaifenesin/Dextromethorphan) 237 Ml Liquid 5 Ml PO PRN Q6-8HRS PRN Tylenol (Acetaminophen) 325 Mg Tablet 2 Tab PO PRN Q4HRS Vitamin B-12 (Cyanocobalamin (Vitamin B-12)) 1,000 Mcg Tablet 1 Tab PO DAILY Quetiapine Fumarate 50 Mg Tablet 50 Mg PO DAILY Omeprazole 20 Mg Capsule.dr 1 Cap PO HS Naltrexone Hcl 50 Mg Tablet 1 Tab PO DAILY Mag-Oxide (Magnesium Oxide) 400 Mg Tablet 1 Tab PO BID Lisinopril 20 Mg Tablet 1 Tab PO DAILY Gabapentin 600 Mg Tablet 600 Mg PO TID Cymbalta (Duloxetine Hcl) 60 Mg Capsule.dr 1 Cap PO DAILY Voltaren (Diclofenac Sodium) 100 Gm Gel..gram. 4 Gm TP QID Centrum Silver Tablet (Multivits-Min/Fa/Lycopene/Lut) 1 Each Tablet 1 Each PO DAILY Atorvastatin Calcium 80 Mg Tablet 1 Tab PO HS Vitals/I & O Vital Sign - Last 24 Hours 05/21/18 05/21/18 05/21/18 05/21/18 11:00 15:00 19:00 20:00 Temp 97.5 97.5 97.6 97.5 97.5 97.6 Pulse 65 69 95 Resp 18 18 B/P (MAP) 143/74 (97) 125/61 (82) 154/92 (112) Pulse Ox 98 92 95 O2 Delivery Room Air Room Air Room Air Room Air 05/21/18 05/21/18 05/21/18 05/22/18 20:57 21:57 23:00 03:00 Temp 97.7 97.7 97.7 97.7 Pulse 72 70 Resp 20 18 18 B/P (MAP) 160/82 (108) 141/73 (95) Pulse Ox 92 95 95 95 O2 Delivery Room Air Room Air Room Air Room Air 05/22/18 05/22/18 05/22/18 07:00 09:04 09:09 Temp 96.8 96.8 Pulse 67 67 Resp 18 B/P (MAP) 138/91 (107) 138/91 Pulse Ox 96 O2 Delivery Room Air Room Air Intake and Output 05/21/18 05/21/18 05/22/18 15:00 23:00 07:00 Intake Total 900 ml 1100 ml Output Total 850 ml Balance 900 ml 250 ml EMELI DUEÑAS MD May 22, 2018 10:07
[2018-05-22] MEDS ORDERED: POLYETHYLENE GLYCOL 3350 17 GM PACKET. PO ONE (10:15)
[2018-05-22] MEDS ORDERED: DOCUSATE SODIUM 100 MG CAPSULE. PO PRN (10:15)
[2018-05-22 11:00] VITALS: BP 145/82
--- NOTE | 2018-05-22 11:29 | PDOC ---
Subjective: Subjective: Still has a little abd pain - can't really say where or describe it. Had pain before breakfast, then ate eggs and sausage and toast. Hasn't stooled recently - he says 2 days. Objective: Objective: Other notes indicate severe abd pain this morning. No stools charted - we were asked to see for diarrhea on 05/19 (and he told me 5 stools the day before). Vital Signs: Vital Signs Date Time Temp Pulse Resp B/P (MAP) Pulse Ox O2 Delivery O2 Flow Rate FiO2 05/22/18 09:09 18 Room Air 05/22/18 09:04 67 138/91 05/22/18 07:00 96.8 96 96.8 Imaging: KUB pending PE: GEN: NAD LUNGS: CTAB HEART: RRR ABD: soft, NABS - does not seem particularly tender, though he says "feels funny " when suprapubic area palpated NEURO/PSYCH: A & O 3 A/P: Recurrent abd pain -- Had normal GB on US last admission. EGD last admission - on PPI and Carafate. Has dicyclomine ordered - not given. Note now has Miralax and Colace - diarrhea was an issues earlier this week but resolved. KUB pending. Difficult situation - recurrent symptoms, hard to get a good feel for what he feels. Will review w/ Dr. Conrad. ARNOLD HOSKINS May 22, 2018 11:29
[2018-05-22] MEDS ORDERED: CEPH250C PO (13:39)
--- NOTE | 2018-05-22 14:39 | RAD ---
EXAM: Abdomen, single view. HISTORY: Pain. COMPARISON: 05/18/2018 FINDINGS: A frontal view of the abdomen is obtained. There is moderate colonic stool. There are prominent air-filled loops of bowel within the right abdomen. There is partial visualization of surgical instrumentation within the proximal right femur. IMPRESSION: Moderate clonic stool. Correlate for constipation. Electronically signed by: Mercedes Cuellar MD (05/22/2018 2:35 PM) [id number]
[2018-05-22 15:00] VITALS: BP 133/86
[2018-05-22 19:40] VITALS: BP 154/91
[2018-05-22] MEDS: ATORVASTATIN CALCIUM 40 MG TABLET. PO SCH (21:49)
[2018-05-22] MEDS: QUEtiapine 100 MG TABLET. PO SCH (21:50)
[2018-05-22 23:10] VITALS: BP 147/88
[2018-05-23 03:24] VITALS: BP 91/60
[2018-05-23] MEDS: SUCRALFATE 1 GM TABLET. PO SCH ×3 (06:34→16:17)
[2018-05-23 07:00] VITALS: BP 148/78
[2018-05-23] MEDS: PANTOPRAZOLE 40 MG TABLET.DR. PO SCH (07:38)
[2018-05-23] MEDS ORDERED: MAGNESIUM CITRATE 296 ML SOLUTION. PO ONE (08:30)
[2018-05-23] MEDS ORDERED: SODIUM PHOSPHATES 19/7GM 133 ML ENEMA. PR ONE (08:45)
[2018-05-23] MEDS: DULoxetine HCL 30 MG CAPSULE.DR PO SCH (08:51)
[2018-05-23] MEDS: LACTOBACILLUS RHAMNOSUS GG 1 CAPSULE. PO SCH ×2 (08:51→20:33)
[2018-05-23] MEDS: CEPHALEXIN 250 MG CAPSULE. PO SCH ×3 (08:51→20:33)
[2018-05-23] MEDS: GABAPENTIN 300 MG CAPSULE. PO SCH ×3 (08:51→20:33)
[2018-05-23] MEDS: FOLIC ACID 1 MG TABLET. PO SCH (08:52)
[2018-05-23] MEDS: QUEtiapine 25 MG TABLET. PO SCH (08:52)
[2018-05-23] MEDS: CYANOCOBALAMIN (VITAMIN B-12) 1,000 MCG TABLET. PO SCH (08:52)
[2018-05-23] MEDS: MULTIVITAMIN with MINERAL TABLET. PO SCH (08:52)
[2018-05-23] MEDS: MAGNESIUM OXIDE 400 MG TABLET PO SCH ×2 (08:52→20:33)
[2018-05-23] MEDS: LISINOPRIL 20 MG TABLET PO SCH (08:53)
[2018-05-23] MEDS: DICLOFENAC SODIUM 1% TOPICAL GEL 100GM TUBE. TP SCH ×4 (09:00→20:35)
[2018-05-23] MEDS ORDERED: POLYETHYLENE GLYCOL 3350 17 GM PACKET. PO SCH (09:00)
[2018-05-23] MEDS: DOCUSATE SODIUM 100 MG CAPSULE. PO SCH (09:00)
[2018-05-23 11:00] VITALS: BP 144/81
--- NOTE | 2018-05-23 11:19 | PDOC ---
Subjective: Subjective: Tolerating PO, just took meds to promote stooling. Objective: Objective: Reviewed chart - received enema and Mag Citrate. Vital Signs: Vital Signs Date Time Temp Pulse Resp B/P (MAP) Pulse Ox O2 Delivery O2 Flow Rate FiO2 05/23/18 08:53 61 148/78 05/23/18 08:00 Room Air 05/23/18 07:00 97.3 18 97 97.3 Imaging: KUB IMPRESSION: Moderate clonic stool. Correlate for constipation. PE: GEN: NAD LUNGS: CTAB HEART: RRR ABD: some distention but basically stable exam, BS+, does not seem tender NEURO/PSYCH: A & O 3 A/P: Recurrent GI symptoms - n/v, abd pain, diarrhea, and constipation Alcohol overuse -- Awaiting results from Mag Citrate and enema. DC per primary. ARNOLD HOSKINS May 23, 2018 11:19
[2018-05-23] MEDS: POLYETHYLENE GLYCOL 3350 17 GM PACKET. PO SCH ×2 (13:33→20:35)
[2018-05-23 15:00] VITALS: BP 148/81
--- NOTE | 2018-05-23 16:58 | PDOC ---
PROGRESS NOTES Chief Complaint Chief Complaint new weakness and debility, unsteady, EtOH withdrawl tremor 1- Gastritis worsening due to not taking Carafate and PPI and drinking ETOH 2- Pneumonia RLL continue antibiotics 3- Alcoholism 4- weakness and debility 5- BPH 6- peptic ulcer disease 7-DJD History of Present Illness History of Present Illness constipation, abd pain, has not stooled, will increase miralax, add mag citrate , try to DC today, small tremor, nystagmus gone weak, but walking much better every day Vitals Vitals Vital Signs Date Time Temp Pulse Resp B/P (MAP) Pulse Ox O2 Delivery O2 Flow Rate FiO2 05/23/18 15:00 96.6 75 18 148/81 (103) 96 Room Air 96.6 Physical Exam General: Alert, Oriented X3, Cooperative, No acute distress Heart: Regular rate Lungs: Clear Abdomen: Normal bowel sounds, Soft, Other (mild tender, sounds normal) Extremities: No clubbing Skin: No rashes Assessment and Plan Assessmemt and Plan Problems Medical Problems: (1) Gastritis Status: Acute (2) Nausea and vomiting Status: Acute Comment Review of Relevant I have reviewed the following items christine (where applicable) has been applied. Medications Current Medications Ondansetron HCl (Zofran) 8 mg 1X ONCE IV Last administered on 05/18/18at 04:12 ; Start 05/18/18 at 04:30; Stop 05/18/18 at 04:31; Status DC Famotidine (Pepcid Vial) 20 mg 1X ONCE IVP Last administered on 05/18/18at 04: 11; Start 05/18/18 at 04:30; Stop 05/18/18 at 04:31; Status DC Fentanyl Citrate (Fentanyl 2ml Vial) 75 mcg 1X ONCE IV Last administered on at 04:16; Start 05/18/18 at 04:30; Stop 05/18/18 at 04:31; Status DC Sodium Chloride 1,000 ml @ 1,000 mls/hr 1X ONCE IV Last administered on at 04:16; Start 05/18/18 at 04:30; Stop 05/18/18 at 05:29; Status DC Sodium Chloride 1,000 ml @ 125 mls/hr 1X ONCE IV Last administered on at 06:47; Start 05/18/18 at 07:00; Stop 05/18/18 at 14:59; Status DC Iohexol (Omnipaque 300 Mg/ml) 75 ml 1X ONCE IV Last administered on 05/18/18at 07:30; Start 05/18/18 at 07:30; Stop 05/18/18 at 07:31; Status DC Ondansetron HCl (Zofran) 4 mg 1X ONCE IV Last administered on 05/18/18at 06:56 ; Start 05/18/18 at 07:15; Stop 05/18/18 at 07:16; Status DC Info (CONTRAST GIVEN -- Rx MONITORING) 1 each PRN DAILY PRN MC SEE COMMENTS; Start 05/18/18 at 07:00; Stop 05/20/18 at 06:59; Status DC Ondansetron HCl (Zofran) 4 mg 1X ONCE IV Last administered on 05/18/18at 07:44 ; Start 05/18/18 at 07:00; Stop 05/18/18 at 07:02; Status DC Ceftriaxone Sodium 1 gm/ Dextrose 50 ml @ 100 mls/hr Q24H IV ; Start 05/18/18 at 09:45; Status UNV Azithromycin 250 ml @ 250 mls/hr 1X ONCE IV Last administered on 05/18/18at 10 :11; Start 05/18/18 at 09:45; Stop 05/18/18 at 10:44; Status DC Ceftriaxone Sodium 50 ml @ 100 mls/hr 1X ONCE IV Last administered on at 10:08; Start 05/18/18 at 09:45; Stop 05/18/18 at 10:14; Status DC Ondansetron HCl (Zofran) 4 mg PRN Q8HRS PRN IV NAUSEA/VOMITING Last administered on 05/18/18at 21:04; Start 05/18/18 at 10:15; Stop 05/19/18 at 10:14 ; Status DC Sodium Chloride 1,000 ml @ 80 mls/hr [id number] IV Last administered on at 00:02; Start 05/18/18 at 10:30; Stop 05/19/18 at 10:29; Status DC Acetaminophen (Tylenol) 650 mg PRN Q4HRS PRN PO FEVER; Start 05/18/18 at 10:15 ; Stop 05/19/18 at 10:14; Status DC Ceftriaxone Sodium (Rocephin) 1 gm Q24H IVP Last administered on 05/20/18at 11: 04; Start 05/19/18 at 10:00; Stop 05/20/18 at 12:59; Status DC Acetaminophen (Tylenol) 650 mg PRN Q4HRS PRN PO MILD PAIN / TEMP; Start at 15:30 Cyanocobalamin (Vitamin B-12) 1,000 mcg DAILY PO Last administered on at 08:52; Start 05/18/18 at 16:30 Diclofenac Sodium (Voltaren) 1 mckay QID TP ; Start 05/18/18 at 17:00 Famotidine (Pepcid) 20 mg BID PO Last administered on 05/19/18at 08:17; Start at 21:00; Stop 05/19/18 at 13:25; Status DC Folic Acid (Folic Acid) 1 mg DAILY PO Last administered on 05/23/18 08:52; Start 05/18/18 at 16:30 Lisinopril (Prinivil) 20 mg DAILY PO Last administered on 05/23/18at 08:53; Start 05/18/18 at 16:30 Albuterol Sulfate (Ventolin Neb Soln) 2.5 mg PRN Q6HRS PRN NEB SHORTNESS OF BREATH; Start 05/18/18 at 15:45 Atorvastatin Calcium (Lipitor) 80 mg QHS PO Last administered on 05/22/18at 21: 49; Start 05/18/18 at 21:00 Duloxetine HCl (Cymbalta) 60 mg DAILY PO Last administered on 05/23/18at 08:51; Start 05/18/18 at 16:30 Gabapentin (Neurontin) 600 mg TID PO Last administered on 05/23/18at 13:32; Start 05/18/18 at 21:00 Guaifenesin (Robitussin Dm) 5 ml PRN Q6HRS PRN PO COUGH; Start 05/18/18 at 15: 45 Magnesium Oxide (Magnesium Oxide) 400 mg BID PO Last administered on 05/23/18 08:52; Start 05/18/18 at 21:00 Multivitamins (Thera M Plus) 1 tab DAILY PO Last administered on 05/23/18 08: 52; Start 05/18/18 at 16:30 Non-Formulary Medication (Naltrexone Hcl ) 1 tab DAILY PO ; Start 05/19/18 at 09 :00; Stop 05/22/18 at 16:49; Status DC Pantoprazole Sodium (Protonix) 40 mg QHS PO Last administered on 05/18/18 20: 58; Start 05/18/18 at 21:00; Stop 05/19/18 at 13:25; Status DC Ondansetron HCl (Zofran Odt) 4 mg PRN Q8HRS PRN PO NAUSEA/VOMITING Last administered on 05/21/18 11:00; Start 05/18/18 at 15:45 Quetiapine Fumarate (SEROquel) 50 mg DAILY PO Last administered on 05/23/18 08 :52; Start 05/18/18 at 16:30 Quetiapine Fumarate (SEROquel) 150 mg QHS PO Last administered on 05/22/18 21: 50; Start 05/18/18 at 21:00 Sucralfate (Carafate) 1 gm TIDAC PO Last administered on 05/23/18 16:17; Start 05/18/18 at 16:30 Acetaminophen/ Hydrocodone Bitart (Lortab 5/325) 1 tab PRN Q4HRS PRN PO MODERATE-SEVERE PAIN Last administered on 05/22/18 21:50; Start 05/18/18 at 15: 45 Potassium Chloride/Dextrose/ Sod Cl 1,000 ml @ 100 mls/hr 1X ONCE IV Last administered on 05/19/18 12:35; Start 05/19/18 at 12:00; Stop 05/19/18 at 21:59 ; Status DC Pantoprazole Sodium (Protonix) 40 mg DAILYAC PO Last administered on 05/23/18 07:38; Start 05/20/18 at 07:30 Lactobacillus Rhamnosus (Culturelle) 1 cap BID PO Last administered on 08:51; Start 05/19/18 at 21:00 Cephalexin HCl (Keflex) 500 mg TID PO Last administered on 05/23/18 13:32; Start 05/20/18 at 14:00 Dicyclomine HCl (Bentyl) 10 mg PRN QID PRN PO abd pain; Start 05/21/18 at 11:30 Polyethylene Glycol (miraLAX PACKET) 17 gm 1X ONCE PO Last administered on 05/22/18at 10:30; Start 05/22/18 at 10:15; Stop 05/22/18 at 10:16; Status DC Polyethylene Glycol (miraLAX PACKET) 17 gm DAILY PO ; Start 05/23/18 at 09:00; Stop 05/23/18 at 09:10; Status DC Docusate Sodium (Colace) 100 mg DAILY PO ; Start 05/23/18 at 09:00 Docusate Sodium (Colace) 100 mg PRN DAILY PRN PO CONSTIPATION Last administered on 05/23/18at 07:07; Start 05/22/18 at 10:15 Magnesium Citrate (Citroma) 296 ml 1X ONCE PO Last administered on 05/23/18at 09:16; Start 05/23/18 at 08:30; Stop 05/23/18 at 08:31; Status DC Sodium Monofluorophosphate (Fleet Adult) 133 ml 1X ONCE GA Last administered on 05/23/18at 11:08; Start 05/23/18 at 08:45; Stop 05/23/18 at 08:46; Status DC Polyethylene Glycol (miraLAX PACKET) 17 gm TID PO Last administered on at 13:33; Start 05/23/18 at 14:00 Active Scripts Active Cephalexin 250 Mg Capsule 500 Mg PO TID [place] 5-325 Tablet (Acetaminophen/Hydrocodone Bitart) 1 Each Tablet 1 Tab PO PRN Q6HRS PRN 2 Days Zofran (Ondansetron Hcl) 4 Mg Tablet 1 Tab PO Q6HRS Pepcid (Famotidine) 20 Mg Tablet 20 Mg PO BID Folic Acid 1 Mg Tablet 1 Mg PO DAILY 30 Days Carafate (Sucralfate) 1 Gm Tablet 1 Gm PO TIDAC 14 Days Reported Quetiapine Fumarate 100 Mg Tablet 150 Mg PO HS Ventolin Hfa Inhaler (Albuterol Sulfate) 18 Gm Hfa.aer.ad 2 Puff INH Q4HRS Robitussin Cough-Chest Dm Liq (Guaifenesin/Dextromethorphan) 237 Ml Liquid 5 Ml PO PRN Q6-8HRS PRN Tylenol (Acetaminophen) 325 Mg Tablet 2 Tab PO PRN Q4HRS Vitamin B-12 (Cyanocobalamin (Vitamin B-12)) 1,000 Mcg Tablet 1 Tab PO DAILY Quetiapine Fumarate 50 Mg Tablet 50 Mg PO DAILY Omeprazole 20 Mg Capsule.dr 1 Cap PO HS Naltrexone Hcl 50 Mg Tablet 1 Tab PO DAILY Mag-Oxide (Magnesium Oxide) 400 Mg Tablet 1 Tab PO BID Lisinopril 20 Mg Tablet 1 Tab PO DAILY Gabapentin 600 Mg Tablet 600 Mg PO TID Cymbalta (Duloxetine Hcl) 60 Mg Capsule.dr 1 Cap PO DAILY Voltaren (Diclofenac Sodium) 100 Gm Gel..gram. 4 Gm TP QID Centrum Silver Tablet (Multivits-Min/Fa/Lycopene/Lut) 1 Each Tablet 1 Each PO DAILY Atorvastatin Calcium 80 Mg Tablet 1 Tab PO HS Vitals/I & O Vital Sign - Last 24 Hours 05/22/18 05/22/18 05/22/18 05/22/18 19:40 20:00 21:50 22:50 Temp 98.3 98.3 Pulse 73 Resp 20 20 18 B/P (MAP) 154/91 (112) Pulse Ox 97 97 96 O2 Delivery Room Air Room Air Room Air Room Air 05/22/18 05/23/18 05/23/18 05/23/18 23:10 03:24 07:00 08:00 Temp 98.1 97.7 97.3 98.1 97.7 97.3 Pulse 66 94 61 Resp 20 18 18 B/P (MAP) 147/88 (107) 91/60 (70) 148/78 (101) Pulse Ox 96 95 97 O2 Delivery Room Air Room Air Room Air Room Air 05/23/18 05/23/18 05/23/18 08:53 11:00 15:00 Temp 97.3 96.6 97.3 96.6 Pulse 61 74 75 Resp 18 18 B/P (MAP) 148/78 144/81 (102) 148/81 (103) Pulse Ox 97 96 O2 Delivery Room Air Room Air Intake and Output 05/22/18 05/22/18 05/23/18 15:01 23:01 07:01 Intake Total 240 ml 240 ml 760 ml Output Total 600 ml 600 ml 900 ml Balance -360 ml -360 ml -140 ml EMELI DUEÑAS MD May 23, 2018 16:58
[2018-05-23 19:00] VITALS: BP 128/83
[2018-05-23] MEDS: QUEtiapine 100 MG TABLET. PO SCH (20:33)
[2018-05-23] MEDS: ATORVASTATIN CALCIUM 40 MG TABLET. PO SCH (20:33)
[2018-05-23] MEDS: HYDROcodone/APAP 5/325MG 1 TAB TABLET PO PRN (20:41)
[2018-05-23 23:04] VITALS: BP 130/96
[2018-05-24 03:04] VITALS: BP 104/62
[2018-05-24 07:00] VITALS: BP 159/85
--- NOTE | 2018-05-24 08:51 | PDOC ---
PROGRESS NOTES Chief Complaint Chief Complaint new weakness and debility, unsteady, EtOH withdrawl tremor RLL Pneumonia History of Present Illness History of Present Illness Constipation, abd pain, has not stooled, will increase miralax, added mag citrate, will add lactulose and psyllium today. States he had a very small hard BM, but feels some gurgling, does not feel 100%. Small tremor, nystagmus gone Weak, but walking much better every day A/P: 1- Gastritis worsening due to not taking Carafate and PPI and drinking ETOH 2- Pneumonia RLL continue antibiotics 3- Alcoholism 4- weakness and debility 5- BPH 6- peptic ulcer disease 7-DJD Vitals Vitals Vital Signs Date Time Temp Pulse Resp B/P (MAP) Pulse Ox O2 Delivery O2 Flow Rate FiO2 05/24/18 03:04 97.5 84 20 104/62 (76) 93 Room Air 97.5 Physical Exam General: Alert, Oriented X3, Cooperative, No acute distress Heart: Regular rate Lungs: Clear Abdomen: Normal bowel sounds, Soft, Other (mild tender, sounds normal) Extremities: No clubbing Skin: No rashes Assessment and Plan Assessmemt and Plan Problems Medical Problems: (1) Gastritis Status: Acute (2) Nausea and vomiting Status: Acute Comment Review of Relevant I have reviewed the following items christine (where applicable) has been applied. Medications Current Medications Ondansetron HCl (Zofran) 8 mg 1X ONCE IV Last administered on 05/18/18at 04:12 ; Start 05/18/18 at 04:30; Stop 05/18/18 at 04:31; Status DC Famotidine (Pepcid Vial) 20 mg 1X ONCE IVP Last administered on 05/18/18at 04: 11; Start 05/18/18 at 04:30; Stop 05/18/18 at 04:31; Status DC Fentanyl Citrate (Fentanyl 2ml Vial) 75 mcg 1X ONCE IV Last administered on at 04:16; Start 05/18/18 at 04:30; Stop 05/18/18 at 04:31; Status DC Sodium Chloride 1,000 ml @ 1,000 mls/hr 1X ONCE IV Last administered on at 04:16; Start 05/18/18 at 04:30; Stop 05/18/18 at 05:29; Status DC Sodium Chloride 1,000 ml @ 125 mls/hr 1X ONCE IV Last administered on at 06:47; Start 05/18/18 at 07:00; Stop 05/18/18 at 14:59; Status DC Iohexol (Omnipaque 300 Mg/ml) 75 ml 1X ONCE IV Last administered on 05/18/18at 07:30; Start 05/18/18 at 07:30; Stop 05/18/18 at 07:31; Status DC Ondansetron HCl (Zofran) 4 mg 1X ONCE IV Last administered on 05/18/18at 06:56 ; Start 05/18/18 at 07:15; Stop 05/18/18 at 07:16; Status DC Info (CONTRAST GIVEN -- Rx MONITORING) 1 each PRN DAILY PRN MC SEE COMMENTS; Start 05/18/18 at 07:00; Stop 05/20/18 at 06:59; Status DC Ondansetron HCl (Zofran) 4 mg 1X ONCE IV Last administered on 05/18/18at 07:44 ; Start 05/18/18 at 07:00; Stop 05/18/18 at 07:02; Status DC Ceftriaxone Sodium 1 gm/ Dextrose 50 ml @ 100 mls/hr Q24H IV ; Start 05/18/18 at 09:45; Status UNV Azithromycin 250 ml @ 250 mls/hr 1X ONCE IV Last administered on 05/18/18at 10 :11; Start 05/18/18 at 09:45; Stop 05/18/18 at 10:44; Status DC Ceftriaxone Sodium 50 ml @ 100 mls/hr 1X ONCE IV Last administered on at 10:08; Start 05/18/18 at 09:45; Stop 05/18/18 at 10:14; Status DC Ondansetron HCl (Zofran) 4 mg PRN Q8HRS PRN IV NAUSEA/VOMITING Last administered on 05/18/18at 21:04; Start 05/18/18 at 10:15; Stop 05/19/18 at 10:14 ; Status DC Sodium Chloride 1,000 ml @ 80 mls/hr [id number] IV Last administered on at 00:02; Start 05/18/18 at 10:30; Stop 05/19/18 at 10:29; Status DC Acetaminophen (Tylenol) 650 mg PRN Q4HRS PRN PO FEVER; Start 05/18/18 at 10:15 ; Stop 05/19/18 at 10:14; Status DC Ceftriaxone Sodium (Rocephin) 1 gm Q24H IVP Last administered on 05/20/18at 11: 04; Start 05/19/18 at 10:00; Stop 05/20/18 at 12:59; Status DC Acetaminophen (Tylenol) 650 mg PRN Q4HRS PRN PO MILD PAIN / TEMP; Start at 15:30 Cyanocobalamin (Vitamin B-12) 1,000 mcg DAILY PO Last administered on at 08:52; Start 05/18/18 at 16:30 Diclofenac Sodium (Voltaren) 1 mckay QID TP ; Start 05/18/18 at 17:00 Famotidine (Pepcid) 20 mg BID PO Last administered on 05/19/18at 08:17; Start at 21:00; Stop 05/19/18 at 13:25; Status DC Folic Acid (Folic Acid) 1 mg DAILY PO Last administered on 05/23/18at 08:52; Start 05/18/18 at 16:30 Lisinopril (Prinivil) 20 mg DAILY PO Last administered on 05/23/18at 08:53; Start 05/18/18 at 16:30 Albuterol Sulfate (Ventolin Neb Soln) 2.5 mg PRN Q6HRS PRN NEB SHORTNESS OF BREATH; Start 05/18/18 at 15:45 Atorvastatin Calcium (Lipitor) 80 mg QHS PO Last administered on 05/23/18at 20: 33; Start 05/18/18 at 21:00 Duloxetine HCl (Cymbalta) 60 mg DAILY PO Last administered on 05/23/18at 08:51; Start 05/18/18 at 16:30 Gabapentin (Neurontin) 600 mg TID PO Last administered on 05/23/18at 20:33; Start 05/18/18 at 21:00 Guaifenesin (Robitussin Dm) 5 ml PRN Q6HRS PRN PO COUGH; Start 05/18/18 at 15: 45 Magnesium Oxide (Magnesium Oxide) 400 mg BID PO Last administered on 05/23/18 20:33; Start 05/18/18 at 21:00 Multivitamins (Thera M Plus) 1 tab DAILY PO Last administered on 05/23/18 08: 52; Start 05/18/18 at 16:30 Non-Formulary Medication (Naltrexone Hcl ) 1 tab DAILY PO ; Start 05/19/18 at 09 :00; Stop 05/22/18 at 16:49; Status DC Pantoprazole Sodium (Protonix) 40 mg QHS PO Last administered on 05/18/18 20: 58; Start 05/18/18 at 21:00; Stop 05/19/18 at 13:25; Status DC Ondansetron HCl (Zofran Odt) 4 mg PRN Q8HRS PRN PO NAUSEA/VOMITING Last administered on 05/21/18 11:00; Start 05/18/18 at 15:45 Quetiapine Fumarate (SEROquel) 50 mg DAILY PO Last administered on 05/23/18 08 :52; Start 05/18/18 at 16:30 Quetiapine Fumarate (SEROquel) 150 mg QHS PO Last administered on 05/23/18 20: 33; Start 05/18/18 at 21:00 Sucralfate (Carafate) 1 gm TIDAC PO Last administered on 05/23/18 16:17; Start 05/18/18 at 16:30 Acetaminophen/ Hydrocodone Bitart (Lortab 5/325) 1 tab PRN Q4HRS PRN PO MODERATE-SEVERE PAIN Last administered on 05/23/18 20:41; Start 05/18/18 at 15: 45 Potassium Chloride/Dextrose/ Sod Cl 1,000 ml @ 100 mls/hr 1X ONCE IV Last administered on 05/19/18 12:35; Start 05/19/18 at 12:00; Stop 05/19/18 at 21:59 ; Status DC Pantoprazole Sodium (Protonix) 40 mg DAILYAC PO Last administered on 05/23/18 07:38; Start 05/20/18 at 07:30 Lactobacillus Rhamnosus (Culturelle) 1 cap BID PO Last administered on 20:33; Start 05/19/18 at 21:00 Cephalexin HCl (Keflex) 500 mg TID PO Last administered on 10/5/18at 20:33; Start 05/20/18 at 14:00 Dicyclomine HCl (Bentyl) 10 mg PRN QID PRN PO abd pain; Start 05/21/18 at 11:30 Polyethylene Glycol (miraLAX PACKET) 17 gm 1X ONCE PO Last administered on 05/22/18at 10:30; Start 05/22/18 at 10:15; Stop 05/22/18 at 10:16; Status DC Polyethylene Glycol (miraLAX PACKET) 17 gm DAILY PO ; Start 05/23/18 at 09:00; Stop 05/23/18 at 09:10; Status DC Docusate Sodium (Colace) 100 mg DAILY PO ; Start 05/23/18 at 09:00 Docusate Sodium (Colace) 100 mg PRN DAILY PRN PO CONSTIPATION Last administered on 05/23/18at 07:07; Start 05/22/18 at 10:15 Magnesium Citrate (Citroma) 296 ml 1X ONCE PO Last administered on 05/23/18at 09:16; Start 05/23/18 at 08:30; Stop 05/23/18 at 08:31; Status DC Sodium Monofluorophosphate (Fleet Adult) 133 ml 1X ONCE ND Last administered on 05/23/18at 11:08; Start 05/23/18 at 08:45; Stop 05/23/18 at 08:46; Status DC Polyethylene Glycol (miraLAX PACKET) 17 gm TID PO Last administered on at 13:33; Start 05/23/18 at 14:00 Active Scripts Active Cephalexin 250 Mg Capsule 500 Mg PO TID [place] 5-325 Tablet (Acetaminophen/Hydrocodone Bitart) 1 Each Tablet 1 Tab PO PRN Q6HRS PRN 2 Days Zofran (Ondansetron Hcl) 4 Mg Tablet 1 Tab PO Q6HRS Pepcid (Famotidine) 20 Mg Tablet 20 Mg PO BID Folic Acid 1 Mg Tablet 1 Mg PO DAILY 30 Days Carafate (Sucralfate) 1 Gm Tablet 1 Gm PO TIDAC 14 Days Reported Quetiapine Fumarate 100 Mg Tablet 150 Mg PO HS Ventolin Hfa Inhaler (Albuterol Sulfate) 18 Gm Hfa.aer.ad 2 Puff INH Q4HRS Robitussin Cough-Chest Dm Liq (Guaifenesin/Dextromethorphan) 237 Ml Liquid 5 Ml PO PRN Q6-8HRS PRN Tylenol (Acetaminophen) 325 Mg Tablet 2 Tab PO PRN Q4HRS Vitamin B-12 (Cyanocobalamin (Vitamin B-12)) 1,000 Mcg Tablet 1 Tab PO DAILY Quetiapine Fumarate 50 Mg Tablet 50 Mg PO DAILY Omeprazole 20 Mg Capsule.dr 1 Cap PO HS Naltrexone Hcl 50 Mg Tablet 1 Tab PO DAILY Mag-Oxide (Magnesium Oxide) 400 Mg Tablet 1 Tab PO BID Lisinopril 20 Mg Tablet 1 Tab PO DAILY Gabapentin 600 Mg Tablet 600 Mg PO TID Cymbalta (Duloxetine Hcl) 60 Mg Capsule.dr 1 Cap PO DAILY Voltaren (Diclofenac Sodium) 100 Gm Gel..gram. 4 Gm TP QID Centrum Silver Tablet (Multivits-Min/Fa/Lycopene/Lut) 1 Each Tablet 1 Each PO DAILY Atorvastatin Calcium 80 Mg Tablet 1 Tab PO HS Vitals/I & O Vital Sign - Last 24 Hours 05/23/18 05/23/18 05/23/18 05/23/18 08:53 11:00 15:00 19:00 Temp 97.3 96.6 98.3 97.3 96.6 98.3 Pulse 61 74 75 85 Resp 18 18 20 B/P (MAP) 148/78 144/81 (102) 148/81 (103) 128/83 (98) Pulse Ox 97 96 96 O2 Delivery Room Air Room Air Room Air 05/23/18 05/23/18 05/23/18 05/23/18 20:41 20:44 21:59 23:04 Temp 98.1 98.1 Pulse 103 Resp 20 20 20 B/P (MAP) 130/96 (107) Pulse Ox 93 O2 Delivery Room Air Room Air Room Air Room Air 05/24/18 03:04 Temp 97.5 97.5 Pulse 84 Resp 20 B/P (MAP) 104/62 (76) Pulse Ox 93 O2 Delivery Room Air Intake and Output 05/23/18 05/23/18 05/24/18 15:00 23:00 07:00 Intake Total 720 ml 620 ml Output Total 1100 ml 450 ml Balance -380 ml 170 ml BLANCA GUEVARA MD May 24, 2018 08:51
[2018-05-24] MEDS: DICLOFENAC SODIUM 1% TOPICAL GEL 100GM TUBE. TP SCH ×4 (09:00→20:43)
[2018-05-24] MEDS: POLYETHYLENE GLYCOL 3350 17 GM PACKET. PO SCH ×3 (09:00→20:29)
[2018-05-24] MEDS: DULoxetine HCL 30 MG CAPSULE.DR PO SCH (09:20)
[2018-05-24] MEDS: GABAPENTIN 300 MG CAPSULE. PO SCH ×3 (09:20→20:30)
[2018-05-24] MEDS: PANTOPRAZOLE 40 MG TABLET.DR. PO SCH (09:20)
[2018-05-24] MEDS: QUEtiapine 25 MG TABLET. PO SCH (09:20)
[2018-05-24] MEDS: DOCUSATE SODIUM 100 MG CAPSULE. PO SCH (09:21)
[2018-05-24] MEDS: FOLIC ACID 1 MG TABLET. PO SCH (09:21)
[2018-05-24] MEDS: LACTOBACILLUS RHAMNOSUS GG 1 CAPSULE. PO SCH ×2 (09:21→20:30)
[2018-05-24] MEDS: MAGNESIUM OXIDE 400 MG TABLET PO SCH ×2 (09:21→20:30)
[2018-05-24] MEDS: LISINOPRIL 20 MG TABLET PO SCH (09:21)
[2018-05-24] MEDS: CYANOCOBALAMIN (VITAMIN B-12) 1,000 MCG TABLET. PO SCH (09:21)
[2018-05-24] MEDS: CEPHALEXIN 250 MG CAPSULE. PO SCH ×3 (09:21→20:30)
[2018-05-24] MEDS: MULTIVITAMIN with MINERAL TABLET. PO SCH (09:21)
[2018-05-24] MEDS: SUCRALFATE 1 GM TABLET. PO SCH ×3 (09:21→17:19)
[2018-05-24 11:00] VITALS: BP 129/75
[2018-05-24] MEDS: HYDROcodone/APAP 5/325MG 1 TAB TABLET PO PRN ×2 (14:43→20:30)
[2018-05-24 15:00] VITALS: BP 119/85
[2018-05-24] MEDS ORDERED: LACTULOSE 20 GM/30 ML SOLUTION. PO PRN (16:30)
[2018-05-24] MEDS: PSYLLIUM HUSK (SUGAR FREE) 1 PKT PACKET PO SCH (17:19)
[2018-05-24 19:00] VITALS: BP 129/76
[2018-05-24] MEDS: ATORVASTATIN CALCIUM 40 MG TABLET. PO SCH (20:30)
[2018-05-24] MEDS: QUEtiapine 100 MG TABLET. PO SCH (20:40)
[2018-05-24 22:57] VITALS: BP 125/82
[2018-05-25 03:00] VITALS: BP 88/56
--- NOTE | 2018-05-25 07:12 | PDOC ---
PROGRESS NOTES Chief Complaint Chief Complaint new weakness and debility, unsteady, EtOH withdrawl tremor RLL Pneumonia History of Present Illness History of Present Illness Constipation, abd pain, has stooled, increased miralax, added mag citrate, added lactulose and psyllium with improvement. States he had a very small hard BM yesterday, but feels some gurgling and felt some relief. Would not allow staff to see his bowel movement. Small tremor, nystagmus gone Weak, but walking much better every day. He feels better but states he does not wish to go home A/P: 1- Gastritis worsening due to not taking Carafate and PPI and drinking ETOH 2- Pneumonia RLL continue antibiotics 3- Alcoholism 4- weakness and debility 5- BPH 6- peptic ulcer disease 7-DJD Ok for d/c today Vitals Vitals Vital Signs Date Time Temp Pulse Resp B/P (MAP) Pulse Ox O2 Delivery O2 Flow Rate FiO2 05/25/18 03:00 97.6 82 18 88/56 (67) 92 Room Air 97.6 Physical Exam General: Alert, Oriented X3, Cooperative, No acute distress Heart: Regular rate Lungs: Clear Abdomen: Normal bowel sounds, Soft, Other (mild tender, sounds normal) Extremities: No clubbing Skin: No rashes Assessment and Plan Assessmemt and Plan Problems Medical Problems: (1) Gastritis Status: Acute (2) Nausea and vomiting Status: Acute Comment Review of Relevant I have reviewed the following items christine (where applicable) has been applied. Medications Current Medications Ondansetron HCl (Zofran) 8 mg 1X ONCE IV Last administered on 05/18/18at 04:12 ; Start 05/18/18 at 04:30; Stop 05/18/18 at 04:31; Status DC Famotidine (Pepcid Vial) 20 mg 1X ONCE IVP Last administered on 05/18/18at 04: 11; Start 05/18/18 at 04:30; Stop 05/18/18 at 04:31; Status DC Fentanyl Citrate (Fentanyl 2ml Vial) 75 mcg 1X ONCE IV Last administered on at 04:16; Start 05/18/18 at 04:30; Stop 05/18/18 at 04:31; Status DC Sodium Chloride 1,000 ml @ 1,000 mls/hr 1X ONCE IV Last administered on at 04:16; Start 05/18/18 at 04:30; Stop 05/18/18 at 05:29; Status DC Sodium Chloride 1,000 ml @ 125 mls/hr 1X ONCE IV Last administered on at 06:47; Start 05/18/18 at 07:00; Stop 05/18/18 at 14:59; Status DC Iohexol (Omnipaque 300 Mg/ml) 75 ml 1X ONCE IV Last administered on 05/18/18at 07:30; Start 05/18/18 at 07:30; Stop 05/18/18 at 07:31; Status DC Ondansetron HCl (Zofran) 4 mg 1X ONCE IV Last administered on 05/18/18at 06:56 ; Start 05/18/18 at 07:15; Stop 05/18/18 at 07:16; Status DC Info (CONTRAST GIVEN -- Rx MONITORING) 1 each PRN DAILY PRN MC SEE COMMENTS; Start 05/18/18 at 07:00; Stop 05/20/18 at 06:59; Status DC Ondansetron HCl (Zofran) 4 mg 1X ONCE IV Last administered on 05/18/18at 07:44 ; Start 05/18/18 at 07:00; Stop 05/18/18 at 07:02; Status DC Ceftriaxone Sodium 1 gm/ Dextrose 50 ml @ 100 mls/hr Q24H IV ; Start 05/18/18 at 09:45; Status UNV Azithromycin 250 ml @ 250 mls/hr 1X ONCE IV Last administered on 05/18/18at 10 :11; Start 05/18/18 at 09:45; Stop 05/18/18 at 10:44; Status DC Ceftriaxone Sodium 50 ml @ 100 mls/hr 1X ONCE IV Last administered on at 10:08; Start 05/18/18 at 09:45; Stop 05/18/18 at 10:14; Status DC Ondansetron HCl (Zofran) 4 mg PRN Q8HRS PRN IV NAUSEA/VOMITING Last administered on 05/18/18at 21:04; Start 05/18/18 at 10:15; Stop 05/19/18 at 10:14 ; Status DC Sodium Chloride 1,000 ml @ 80 mls/hr [id number] IV Last administered on at 00:02; Start 05/18/18 at 10:30; Stop 05/19/18 at 10:29; Status DC Acetaminophen (Tylenol) 650 mg PRN Q4HRS PRN PO FEVER; Start 05/18/18 at 10:15 ; Stop 05/19/18 at 10:14; Status DC Ceftriaxone Sodium (Rocephin) 1 gm Q24H IVP Last administered on 05/20/18at 11: 04; Start 05/19/18 at 10:00; Stop 05/20/18 at 12:59; Status DC Acetaminophen (Tylenol) 650 mg PRN Q4HRS PRN PO MILD PAIN / TEMP; Start at 15:30 Cyanocobalamin (Vitamin B-12) 1,000 mcg DAILY PO Last administered on at 09:21; Start 05/18/18 at 16:30 Diclofenac Sodium (Voltaren) 1 mckay QID TP ; Start 05/18/18 at 17:00 Famotidine (Pepcid) 20 mg BID PO Last administered on 05/19/18at 08:17; Start at 21:00; Stop 05/19/18 at 13:25; Status DC Folic Acid (Folic Acid) 1 mg DAILY PO Last administered on 05/24/18at 09:21; Start 05/18/18 at 16:30 Lisinopril (Prinivil) 20 mg DAILY PO Last administered on 05/24/18at 09:21; Start 05/18/18 at 16:30 Albuterol Sulfate (Ventolin Neb Soln) 2.5 mg PRN Q6HRS PRN NEB SHORTNESS OF BREATH; Start 05/18/18 at 15:45 Atorvastatin Calcium (Lipitor) 80 mg QHS PO Last administered on 05/24/18at 20: 30; Start 05/18/18 at 21:00 Duloxetine HCl (Cymbalta) 60 mg DAILY PO Last administered on 05/24/18at 09:20; Start 05/18/18 at 16:30 Gabapentin (Neurontin) 600 mg TID PO Last administered on 05/24/18at 20:30; Start 05/18/18 at 21:00 Guaifenesin (Robitussin Dm) 5 ml PRN Q6HRS PRN PO COUGH; Start 05/18/18 at 15: 45 Magnesium Oxide (Magnesium Oxide) 400 mg BID PO Last administered on 05/24/18 20:30; Start 05/18/18 at 21:00 Multivitamins (Thera M Plus) 1 tab DAILY PO Last administered on 05/24/18at 09: 21; Start 05/18/18 at 16:30 Non-Formulary Medication (Naltrexone Hcl ) 1 tab DAILY PO ; Start 05/19/18 at 09 :00; Stop 05/22/18 at 16:49; Status DC Pantoprazole Sodium (Protonix) 40 mg QHS PO Last administered on 05/18/18at 20: 58; Start 05/18/18 at 21:00; Stop 05/19/18 at 13:25; Status DC Ondansetron HCl (Zofran Odt) 4 mg PRN Q8HRS PRN PO NAUSEA/VOMITING Last administered on 05/21/18at 11:00; Start 05/18/18 at 15:45 Quetiapine Fumarate (SEROquel) 50 mg DAILY PO Last administered on 05/24/18at 09 :20; Start 05/18/18 at 16:30 Quetiapine Fumarate (SEROquel) 150 mg QHS PO Last administered on 05/24/18 20: 40; Start 05/18/18 at 21:00 Sucralfate (Carafate) 1 gm TIDAC PO Last administered on 05/24/18 17:19; Start 05/18/18 at 16:30 Acetaminophen/ Hydrocodone Bitart (Lortab 5/325) 1 tab PRN Q4HRS PRN PO MODERATE-SEVERE PAIN Last administered on 05/24/18 20:30; Start 05/18/18 at 15: 45 Potassium Chloride/Dextrose/ Sod Cl 1,000 ml @ 100 mls/hr 1X ONCE IV Last administered on 05/19/18at 12:35; Start 05/19/18 at 12:00; Stop 05/19/18 at 21:59 ; Status DC Pantoprazole Sodium (Protonix) 40 mg DAILYAC PO Last administered on 05/24/18 09:20; Start 05/20/18 at 07:30 Lactobacillus Rhamnosus (Culturelle) 1 cap BID PO Last administered on 10/6/ 18at 20:30; Start 05/19/18 at 21:00 Cephalexin HCl (Keflex) 500 mg TID PO Last administered on 05/24/18at 20:30; Start 05/20/18 at 14:00 Dicyclomine HCl (Bentyl) 10 mg PRN QID PRN PO abd pain; Start 05/21/18 at 11:30 Polyethylene Glycol (miraLAX PACKET) 17 gm 1X ONCE PO Last administered on 05/22/18at 10:30; Start 05/22/18 at 10:15; Stop 05/22/18 at 10:16; Status DC Polyethylene Glycol (miraLAX PACKET) 17 gm DAILY PO ; Start 05/23/18 at 09:00; Stop 05/23/18 at 09:10; Status DC Docusate Sodium (Colace) 100 mg DAILY PO Last administered on 05/24/18at 09:21; Start 05/23/18 at 09:00 Docusate Sodium (Colace) 100 mg PRN DAILY PRN PO CONSTIPATION Last administered on 05/23/18at 07:07; Start 05/22/18 at 10:15 Magnesium Citrate (Citroma) 296 ml 1X ONCE PO Last administered on 05/23/18at 09:16; Start 05/23/18 at 08:30; Stop 05/23/18 at 08:31; Status DC Sodium Monofluorophosphate (Fleet Adult) 133 ml 1X ONCE ID Last administered on 05/23/18at 11:08; Start 05/23/18 at 08:45; Stop 05/23/18 at 08:46; Status DC Polyethylene Glycol (miraLAX PACKET) 17 gm TID PO Last administered on at 20:29; Start 05/23/18 at 14:00 Lactulose (Lactulose) 20 gm PRN DAILY PRN PO CONSTIPATION; Start 05/24/18 at 16 :30 Psyllium Hydrophilic Mucilloid (Metamucil Fiber Packet) 1 pkt DAILY PO Last administered on 05/24/18at 17:19; Start 05/24/18 at 16:30 Active Scripts Active Cephalexin 250 Mg Capsule 500 Mg PO TID [place] 5-325 Tablet (Acetaminophen/Hydrocodone Bitart) 1 Each Tablet 1 Tab PO PRN Q6HRS PRN 2 Days Zofran (Ondansetron Hcl) 4 Mg Tablet 1 Tab PO Q6HRS Pepcid (Famotidine) 20 Mg Tablet 20 Mg PO BID Folic Acid 1 Mg Tablet 1 Mg PO DAILY 30 Days Carafate (Sucralfate) 1 Gm Tablet 1 Gm PO TIDAC 14 Days Reported Quetiapine Fumarate 100 Mg Tablet 150 Mg PO HS Ventolin Hfa Inhaler (Albuterol Sulfate) 18 Gm Hfa.aer.ad 2 Puff INH Q4HRS Robitussin Cough-Chest Dm Liq (Guaifenesin/Dextromethorphan) 237 Ml Liquid 5 Ml PO PRN Q6-8HRS PRN Tylenol (Acetaminophen) 325 Mg Tablet 2 Tab PO PRN Q4HRS Vitamin B-12 (Cyanocobalamin (Vitamin B-12)) 1,000 Mcg Tablet 1 Tab PO DAILY Quetiapine Fumarate 50 Mg Tablet 50 Mg PO DAILY Omeprazole 20 Mg Capsule.dr 1 Cap PO HS Naltrexone Hcl 50 Mg Tablet 1 Tab PO DAILY Mag-Oxide (Magnesium Oxide) 400 Mg Tablet 1 Tab PO BID Lisinopril 20 Mg Tablet 1 Tab PO DAILY Gabapentin 600 Mg Tablet 600 Mg PO TID Cymbalta (Duloxetine Hcl) 60 Mg Capsule.dr 1 Cap PO DAILY Voltaren (Diclofenac Sodium) 100 Gm Gel..gram. 4 Gm TP QID Centrum Silver Tablet (Multivits-Min/Fa/Lycopene/Lut) 1 Each Tablet 1 Each PO DAILY Atorvastatin Calcium 80 Mg Tablet 1 Tab PO HS Vitals/I & O Vital Sign - Last 24 Hours 05/24/18 05/24/18 05/24/18 05/24/18 08:00 09:21 11:00 14:43 Temp 97.4 97.4 Pulse 64 72 Resp 18 B/P (MAP) 159/85 129/75 (93) Pulse Ox 96 O2 Delivery Room Air Room Air Room Air 05/24/18 05/24/18 05/24/18 05/24/18 15:00 19:00 20:00 20:30 Temp 98.0 98.3 98.0 98.3 Pulse 71 67 Resp 18 18 B/P (MAP) 119/85 (96) 129/76 (93) Pulse Ox 98 98 O2 Delivery Room Air Room Air Room Air Room Air 05/24/18 05/25/18 22:57 03:00 Temp 98.0 97.6 98.0 97.6 Pulse 81 82 Resp 18 18 B/P (MAP) 125/82 (96) 88/56 (67) Pulse Ox 92 92 O2 Delivery Room Air Room Air Intake and Output 05/24/18 05/24/18 05/25/18 15:00 23:00 07:00 Intake Total 180 ml 900 ml Output Total 450 ml Balance 180 ml 450 ml BLANCA GUEVARA MD May 25, 2018 07:12
[2018-05-25 07:54] VITALS: BP 108/67
[2018-05-25] MEDS: DICLOFENAC SODIUM 1% TOPICAL GEL 100GM TUBE. TP SCH ×4 (09:00→20:17)
[2018-05-25] MEDS: DULoxetine HCL 30 MG CAPSULE.DR PO SCH (10:15)
[2018-05-25] MEDS: DOCUSATE SODIUM 100 MG CAPSULE. PO SCH (10:15)
[2018-05-25] MEDS: FOLIC ACID 1 MG TABLET. PO SCH (10:15)
[2018-05-25] MEDS: PANTOPRAZOLE 40 MG TABLET.DR. PO SCH (10:15)
[2018-05-25] MEDS: CYANOCOBALAMIN (VITAMIN B-12) 1,000 MCG TABLET. PO SCH (10:15)
[2018-05-25] MEDS: CEPHALEXIN 250 MG CAPSULE. PO SCH ×3 (10:16→20:11)
[2018-05-25] MEDS: POLYETHYLENE GLYCOL 3350 17 GM PACKET. PO SCH ×3 (10:18→20:10)
[2018-05-25] MEDS: LISINOPRIL 20 MG TABLET PO SCH (10:18)
[2018-05-25] MEDS: MAGNESIUM OXIDE 400 MG TABLET PO SCH ×2 (10:18→20:10)
[2018-05-25] MEDS: MULTIVITAMIN with MINERAL TABLET. PO SCH (10:18)
[2018-05-25] MEDS: SUCRALFATE 1 GM TABLET. PO SCH ×3 (10:18→16:21)
[2018-05-25] MEDS: PSYLLIUM HUSK (SUGAR FREE) 1 PKT PACKET PO SCH (10:18)
[2018-05-25] MEDS: GABAPENTIN 300 MG CAPSULE. PO SCH ×3 (10:18→20:10)
[2018-05-25] MEDS: QUEtiapine 25 MG TABLET. PO SCH (10:25)
[2018-05-25] MEDS: HYDROcodone/APAP 5/325MG 1 TAB TABLET PO PRN ×3 (10:28→20:11)
[2018-05-25] MEDS: LACTOBACILLUS RHAMNOSUS GG 1 CAPSULE. PO SCH ×2 (10:30→20:10)
[2018-05-25 11:00] VITALS: BP 111/76
--- NOTE | 2018-05-25 13:24 | DISCH ---
DISCHARGE WITH HOME HEALTH DISCHARGE INFORMATION: Discharge Date: May 25, 2018 Final Diagnosis: Problems Medical Problems: (1) Gastritis Status: Acute (2) Nausea and vomiting Status: Acute Condition on Discharge: Stable CODE STATUS: Code Status: Full HOME HEALTH: Face to Face: I certify this patient is under my care and that I, or a nurse practitioner or physician's assistant spa manager working with me, had a face to face encounter that meets the physician face to face encounter requirements with this patient on 05/25/18. Custodial For: Medication Management Pt Meets Homebound Status: Poor coordination w/ amb., Unsteady balance w/ amb, POST DISCHARGE ORDERS: Activity Instructions for Disc: Activity as tolerated Weight Bearing Status after Di: No restrictions DIET AFTER DISCHARGE: ADA FOLLOW-UP: Follow up with: your PCP as instructed. Follow Up With: Dr.M. [facility] as instructed, call [phone] for appointment. TREATMENT/EQUIPMENT ORDERS: Adaptive Equipment Issued: Cane CERTIFICATION STATEMENT: Certification Statement: Certification Statement: Based on the above finding, I certify that this patient is confined to the home and needs intermittent shelter care, physical therapy and/or speech therapy, or continues to need occupational therapy.~ This patient is under my care, and I have initiated the establishment of the plan of care.~ This patient will be followed by myself or a community physician who will periodically review the plan of care. Home Meds Active Scripts Cephalexin (CEPHALEXIN) 250 Mg Capsule, 500 MG PO TID, #21 CAP Prov:EMELI DUEÑAS MD 05/22/18 Hydrocodone/[place] 5-325 ([place] 5-325 TABLET) 1 Each Tablet, 1 TAB PO PRN Q6HRS PRN for PAIN for 2 Days, TAB 0 Refills Prov:ASHELY GOMEZ MD 05/18/18 Ondansetron Hcl (ZOFRAN) 4 Mg Tablet, 1 TAB PO Q6HRS, #10 TAB 0 Refills Prov:EREN POWERS DO 05/18/18 Famotidine (PEPCID) 20 Mg Tablet, 20 MG PO BID, #20 TAB Prov:EREN POWERS DO 05/18/18 Folic Acid (FOLIC ACID) 1 Mg Tablet, 1 MG PO DAILY for 30 Days, #30 TAB Prov:JENNIFER AVENDAÑO MD 05/12/18 Sucralfate (CARAFATE) 1 Gm Tablet, 1 GM PO TIDAC for 14 Days, #42 TAB Prov:JENNIFER AVEDNAÑO MD 05/12/18 Reported Medications Quetiapine Fumarate (QUETIAPINE FUMARATE) 100 Mg Tablet, 150 MG PO HS, TAB 05/10/18 Albuterol Sulfate (VENTOLIN HFA INHALER) 18 Gm Hfa.aer.ad, 2 PUFF INH Q4HRS for FOR ASTHMA, INHALER 0 Refills 05/10/18 Guaifenesin/Dextromethorphan (Robitussin Cough-Chest Dm Liq) 237 Ml Liquid, 5 ML PO PRN Q6-8HRS PRN for COUGH, LIQUID 05/10/18 Acetaminophen (TYLENOL) 325 Mg Tablet, 2 TAB PO PRN Q4HRS, #30 TAB 05/10/18 Cyanocobalamin (Vitamin B-12) (VITAMIN B-12) 1,000 Mcg Tablet, 1 TAB PO DAILY, # 30 TAB 2 Refills 05/10/18 Quetiapine Fumarate (QUETIAPINE FUMARATE) 50 Mg Tablet, 50 MG PO DAILY, TAB 05/10/18 Omeprazole (OMEPRAZOLE) 20 Mg Capsule.dr, 1 CAP PO HS, #30 CAP 5 Refills 05/10/18 Naltrexone Hcl (NALTREXONE HCL) 50 Mg Tablet, 1 TAB PO DAILY, #30 TAB 2 Refills 05/10/18 Magnesium Oxide (MAG-OXIDE) 400 Mg Tablet, 1 TAB PO BID, #60 TAB 5 Refills 05/10/18 Lisinopril (LISINOPRIL) 20 Mg Tablet, 1 TAB PO DAILY, #30 TAB 5 Refills 05/10/18 Gabapentin (GABAPENTIN) 600 Mg Tablet, 600 MG PO TID, TAB 05/10/18 Duloxetine Hcl (CYMBALTA) 60 Mg Capsule.dr, 1 CAP PO DAILY, #90 CAP 3 Refills 05/10/18 Diclofenac Sodium (VOLTAREN) 100 Gm Gel..gram., 4 GM TP QID, #100 GM 2 Refills 05/10/18 Multivits-Min/Fa/Lycopene/Lut (CENTRUM SILVER TABLET) 1 Each Tablet, 1 EACH PO DAILY, TAB 05/10/18 Atorvastatin Calcium (ATORVASTATIN CALCIUM) 80 Mg Tablet, 1 TAB PO HS, #30 TAB 5 Refills 05/10/18 BLANCA GUEVARA MD May 25, 2018 13:24
[2018-05-25 15:00] VITALS: BP 117/82
[2018-05-25 19:00] VITALS: BP 136/84
[2018-05-25] MEDS: QUEtiapine 100 MG TABLET. PO SCH (20:11)
[2018-05-25] MEDS: ATORVASTATIN CALCIUM 40 MG TABLET. PO SCH (20:11)
[2018-05-25 23:00] VITALS: BP 109/78
[2018-05-26 03:00] VITALS: BP 143/61
[2018-05-26 07:00] VITALS: BP 106/75
[2018-05-26] MEDS: PANTOPRAZOLE 40 MG TABLET.DR. PO SCH (07:47)
[2018-05-26] MEDS: SUCRALFATE 1 GM TABLET. PO SCH ×3 (07:47→15:30)
[2018-05-26] MEDS: CEPHALEXIN 250 MG CAPSULE. PO SCH ×2 (08:56→14:23)
[2018-05-26] MEDS: QUEtiapine 25 MG TABLET. PO SCH (08:56)
[2018-05-26] MEDS: MAGNESIUM OXIDE 400 MG TABLET PO SCH (08:56)
[2018-05-26] MEDS: CYANOCOBALAMIN (VITAMIN B-12) 1,000 MCG TABLET. PO SCH (08:56)
[2018-05-26] MEDS: LACTOBACILLUS RHAMNOSUS GG 1 CAPSULE. PO SCH (08:56)
[2018-05-26] MEDS: FOLIC ACID 1 MG TABLET. PO SCH (08:56)
[2018-05-26] MEDS: POLYETHYLENE GLYCOL 3350 17 GM PACKET. PO SCH ×2 (08:57→14:00)
[2018-05-26] MEDS: DOCUSATE SODIUM 100 MG CAPSULE. PO SCH (08:57)
[2018-05-26] MEDS: PSYLLIUM HUSK (SUGAR FREE) 1 PKT PACKET PO SCH (08:57)
[2018-05-26] MEDS: GABAPENTIN 300 MG CAPSULE. PO SCH ×2 (08:57→14:23)
[2018-05-26] MEDS: MULTIVITAMIN with MINERAL TABLET. PO SCH (08:57)
[2018-05-26] MEDS: LISINOPRIL 20 MG TABLET PO SCH (08:57)
[2018-05-26] MEDS: DULoxetine HCL 30 MG CAPSULE.DR PO SCH (08:59)
[2018-05-26] MEDS: DICLOFENAC SODIUM 1% TOPICAL GEL 100GM TUBE. TP SCH ×3 (09:00→10:54)
[2018-05-26 10:36] VITALS: BP 123/87
[2018-05-26] MEDS: HYDROcodone/APAP 5/325MG 1 TAB TABLET PO PRN (11:27)
--- NOTE | 2018-05-26 11:52 | PDOC ---
PROGRESS NOTES Chief Complaint Chief Complaint new weakness and debility, unsteady, EtOH withdrawl tremor RLL Pneumonia Head injury Knee fracture History of Present Illness History of Present Illness pt seen and examined, pt was pleasant, still complaining of constipation, pt denies abd. pain Dw/ RN Vitals Vitals Vital Signs Date Time Temp Pulse Resp B/P (MAP) Pulse Ox O2 Delivery O2 Flow Rate FiO2 05/26/18 11:27 18 Room Air 05/26/18 10:36 97.5 75 123/87 (99) 97 97.5 Physical Exam General: Alert, Oriented X3, Cooperative, No acute distress Heart: Regular rate, Normal S1 Lungs: Clear Abdomen: Normal bowel sounds, Soft, No tenderness, Other (mild tender, sounds normal) Extremities: No clubbing, No edema Skin: No rashes, No significant lesion Review of Systems Review of Systems CO weakness CO hunger Assessment and Plan Assessmemt and Plan Problems Medical Problems: (1) Gastritis Status: Acute (2) Nausea and vomiting Status: Acute new weakness and debility, unsteady, EtOH withdrawl tremor RLL Pneumonia Head injury Knee fracture Plan: Discharge to assisted living Antibiotics Miralax Home meds PT/OT Comment Review of Relevant I have reviewed the following items christine (where applicable) has been applied. Medications Current Medications Ondansetron HCl (Zofran) 8 mg 1X ONCE IV Last administered on 05/18/18at 04:12 ; Start 05/18/18 at 04:30; Stop 05/18/18 at 04:31; Status DC Famotidine (Pepcid Vial) 20 mg 1X ONCE IVP Last administered on 05/18/18at 04: 11; Start 05/18/18 at 04:30; Stop 05/18/18 at 04:31; Status DC Fentanyl Citrate (Fentanyl 2ml Vial) 75 mcg 1X ONCE IV Last administered on at 04:16; Start 05/18/18 at 04:30; Stop 05/18/18 at 04:31; Status DC Sodium Chloride 1,000 ml @ 1,000 mls/hr 1X ONCE IV Last administered on at 04:16; Start 05/18/18 at 04:30; Stop 05/18/18 at 05:29; Status DC Sodium Chloride 1,000 ml @ 125 mls/hr 1X ONCE IV Last administered on at 06:47; Start 05/18/18 at 07:00; Stop 05/18/18 at 14:59; Status DC Iohexol (Omnipaque 300 Mg/ml) 75 ml 1X ONCE IV Last administered on 05/18/18at 07:30; Start 05/18/18 at 07:30; Stop 05/18/18 at 07:31; Status DC Ondansetron HCl (Zofran) 4 mg 1X ONCE IV Last administered on 05/18/18at 06:56 ; Start 05/18/18 at 07:15; Stop 05/18/18 at 07:16; Status DC Info (CONTRAST GIVEN -- Rx MONITORING) 1 each PRN DAILY PRN MC SEE COMMENTS; Start 05/18/18 at 07:00; Stop 05/20/18 at 06:59; Status DC Ondansetron HCl (Zofran) 4 mg 1X ONCE IV Last administered on 05/18/18at 07:44 ; Start 05/18/18 at 07:00; Stop 05/18/18 at 07:02; Status DC Ceftriaxone Sodium 1 gm/ Dextrose 50 ml @ 100 mls/hr Q24H IV ; Start 05/18/18 at 09:45; Status UNV Azithromycin 250 ml @ 250 mls/hr 1X ONCE IV Last administered on 05/18/18at 10 :11; Start 05/18/18 at 09:45; Stop 05/18/18 at 10:44; Status DC Ceftriaxone Sodium 50 ml @ 100 mls/hr 1X ONCE IV Last administered on at 10:08; Start 05/18/18 at 09:45; Stop 05/18/18 at 10:14; Status DC Ondansetron HCl (Zofran) 4 mg PRN Q8HRS PRN IV NAUSEA/VOMITING Last administered on 05/18/18at 21:04; Start 05/18/18 at 10:15; Stop 05/19/18 at 10:14 ; Status DC Sodium Chloride 1,000 ml @ 80 mls/hr [id number] IV Last administered on at 00:02; Start 05/18/18 at 10:30; Stop 05/19/18 at 10:29; Status DC Acetaminophen (Tylenol) 650 mg PRN Q4HRS PRN PO FEVER; Start 05/18/18 at 10:15 ; Stop 05/19/18 at 10:14; Status DC Ceftriaxone Sodium (Rocephin) 1 gm Q24H IVP Last administered on 05/20/18at 11: 04; Start 05/19/18 at 10:00; Stop 05/20/18 at 12:59; Status DC Acetaminophen (Tylenol) 650 mg PRN Q4HRS PRN PO MILD PAIN / TEMP; Start at 15:30 Cyanocobalamin (Vitamin B-12) 1,000 mcg DAILY PO Last administered on at 08:56; Start 05/18/18 at 16:30 Diclofenac Sodium (Voltaren) 1 mckay QID TP ; Start 05/18/18 at 17:00 Famotidine (Pepcid) 20 mg BID PO Last administered on 05/19/18at 08:17; Start at 21:00; Stop 05/19/18 at 13:25; Status DC Folic Acid (Folic Acid) 1 mg DAILY PO Last administered on 05/26/18at 08:56; Start 05/18/18 at 16:30 Lisinopril (Prinivil) 20 mg DAILY PO Last administered on 05/26/18at 08:57; Start 05/18/18 at 16:30 Albuterol Sulfate (Ventolin Neb Soln) 2.5 mg PRN Q6HRS PRN NEB SHORTNESS OF BREATH; Start 05/18/18 at 15:45 Atorvastatin Calcium (Lipitor) 80 mg QHS PO Last administered on 05/25/18at 20: 11; Start 05/18/18 at 21:00 Duloxetine HCl (Cymbalta) 60 mg DAILY PO Last administered on 05/26/18at 08:59; Start 05/18/18 at 16:30 Gabapentin (Neurontin) 600 mg TID PO Last administered on 05/26/18at 08:57; Start 05/18/18 at 21:00 Guaifenesin (Robitussin Dm) 5 ml PRN Q6HRS PRN PO COUGH; Start 05/18/18 at 15: 45 Magnesium Oxide (Magnesium Oxide) 400 mg BID PO Last administered on 05/26/18at 08:56; Start 05/18/18 at 21:00 Multivitamins (Thera M Plus) 1 tab DAILY PO Last administered on 05/26/18 08: 57; Start 05/18/18 at 16:30 Non-Formulary Medication (Naltrexone Hcl ) 1 tab DAILY PO ; Start 05/19/18 at 09 :00; Stop 05/22/18 at 16:49; Status DC Pantoprazole Sodium (Protonix) 40 mg QHS PO Last administered on 05/18/18 20: 58; Start 05/18/18 at 21:00; Stop 05/19/18 at 13:25; Status DC Ondansetron HCl (Zofran Odt) 4 mg PRN Q8HRS PRN PO NAUSEA/VOMITING Last administered on 05/21/18 11:00; Start 05/18/18 at 15:45 Quetiapine Fumarate (SEROquel) 50 mg DAILY PO Last administered on 05/26/18 08 :56; Start 05/18/18 at 16:30 Quetiapine Fumarate (SEROquel) 150 mg QHS PO Last administered on 05/25/18 20: 11; Start 05/18/18 at 21:00 Sucralfate (Carafate) 1 gm TIDAC PO Last administered on 05/26/18 11:23; Start 05/18/18 at 16:30 Acetaminophen/ Hydrocodone Bitart (Lortab 5/325) 1 tab PRN Q4HRS PRN PO MODERATE-SEVERE PAIN Last administered on 05/26/18 11:27; Start 05/18/18 at 15: 45 Potassium Chloride/Dextrose/ Sod Cl 1,000 ml @ 100 mls/hr 1X ONCE IV Last administered on 05/19/18 12:35; Start 05/19/18 at 12:00; Stop 05/19/18 at 21:59 ; Status DC Pantoprazole Sodium (Protonix) 40 mg DAILYAC PO Last administered on 05/26/18 07:47; Start 05/20/18 at 07:30 Lactobacillus Rhamnosus (Culturelle) 1 cap BID PO Last administered on 08:56; Start 05/19/18 at 21:00 Cephalexin HCl (Keflex) 500 mg TID PO Last administered on 05/26/18 08:56; Start 05/20/18 at 14:00 Dicyclomine HCl (Bentyl) 10 mg PRN QID PRN PO abd pain; Start 05/21/18 at 11:30 Polyethylene Glycol (miraLAX PACKET) 17 gm 1X ONCE PO Last administered on 05/22/18at 10:30; Start 05/22/18 at 10:15; Stop 05/22/18 at 10:16; Status DC Polyethylene Glycol (miraLAX PACKET) 17 gm DAILY PO ; Start 05/23/18 at 09:00; Stop 05/23/18 at 09:10; Status DC Docusate Sodium (Colace) 100 mg DAILY PO Last administered on 05/26/18at 08:57; Start 05/23/18 at 09:00 Docusate Sodium (Colace) 100 mg PRN DAILY PRN PO CONSTIPATION Last administered on 05/23/18at 07:07; Start 05/22/18 at 10:15 Magnesium Citrate (Citroma) 296 ml 1X ONCE PO Last administered on 05/23/18at 09:16; Start 05/23/18 at 08:30; Stop 05/23/18 at 08:31; Status DC Sodium Monofluorophosphate (Fleet Adult) 133 ml 1X ONCE MI Last administered on 05/23/18at 11:08; Start 05/23/18 at 08:45; Stop 05/23/18 at 08:46; Status DC Polyethylene Glycol (miraLAX PACKET) 17 gm TID PO Last administered on at 08:57; Start 05/23/18 at 14:00 Lactulose (Lactulose) 20 gm PRN DAILY PRN PO CONSTIPATION; Start 05/24/18 at 16 :30 Psyllium Hydrophilic Mucilloid (Metamucil Fiber Packet) 1 pkt DAILY PO Last administered on 05/26/18at 08:57; Start 05/24/18 at 16:30 Active Scripts Active Cephalexin 250 Mg Capsule 500 Mg PO TID [place] 5-325 Tablet (Acetaminophen/Hydrocodone Bitart) 1 Each Tablet 1 Tab PO PRN Q6HRS PRN 2 Days Zofran (Ondansetron Hcl) 4 Mg Tablet 1 Tab PO Q6HRS Pepcid (Famotidine) 20 Mg Tablet 20 Mg PO BID Folic Acid 1 Mg Tablet 1 Mg PO DAILY 30 Days Carafate (Sucralfate) 1 Gm Tablet 1 Gm PO TIDAC 14 Days Reported Quetiapine Fumarate 100 Mg Tablet 150 Mg PO HS Ventolin Hfa Inhaler (Albuterol Sulfate) 18 Gm Hfa.aer.ad 2 Puff INH Q4HRS Robitussin Cough-Chest Dm Liq (Guaifenesin/Dextromethorphan) 237 Ml Liquid 5 Ml PO PRN Q6-8HRS PRN Tylenol (Acetaminophen) 325 Mg Tablet 2 Tab PO PRN Q4HRS Vitamin B-12 (Cyanocobalamin (Vitamin B-12)) 1,000 Mcg Tablet 1 Tab PO DAILY Quetiapine Fumarate 50 Mg Tablet 50 Mg PO DAILY Omeprazole 20 Mg Capsule.dr 1 Cap PO HS Naltrexone Hcl 50 Mg Tablet 1 Tab PO DAILY Mag-Oxide (Magnesium Oxide) 400 Mg Tablet 1 Tab PO BID Lisinopril 20 Mg Tablet 1 Tab PO DAILY Gabapentin 600 Mg Tablet 600 Mg PO TID Cymbalta (Duloxetine Hcl) 60 Mg Capsule.dr 1 Cap PO DAILY Voltaren (Diclofenac Sodium) 100 Gm Gel..gram. 4 Gm TP QID Centrum Silver Tablet (Multivits-Min/Fa/Lycopene/Lut) 1 Each Tablet 1 Each PO DAILY Atorvastatin Calcium 80 Mg Tablet 1 Tab PO HS Vitals/I & O Vital Sign - Last 24 Hours 05/25/18 05/25/18 05/25/18 05/25/18 15:00 15:18 16:21 19:00 Temp 98.2 98.8 98.2 98.8 Pulse 76 70 Resp 18 18 B/P (MAP) 117/82 (94) 136/84 (101) Pulse Ox 97 97 98 O2 Delivery Room Air Room Air Room Air 05/25/18 05/25/18 05/25/18 05/25/18 19:30 20:11 21:12 23:00 Temp 97.9 97.9 Pulse 76 Resp 18 B/P (MAP) 109/78 (88) Pulse Ox 98 O2 Delivery Room Air Room Air Room Air Room Air 05/26/18 05/26/18 05/26/18 05/26/18 03:00 07:00 08:00 08:57 Temp 98.3 97.5 98.3 97.5 Pulse 80 80 80 Resp 18 18 B/P (MAP) 143/61 (88) 106/75 (85) 106/75 Pulse Ox 99 95 O2 Delivery Room Air Room Air Room Air 05/26/18 05/26/18 10:36 11:27 Temp 97.5 97.5 Pulse 75 Resp 18 18 B/P (MAP) 123/87 (99) Pulse Ox 97 O2 Delivery Room Air Room Air Intake and Output 05/25/18 05/25/18 05/26/18 15:00 23:00 07:00 Intake Total 180 ml 400 ml Balance 180 ml 400 ml VALERIE BRENNAN III DO May 26, 2018 11:52
[2018-05-26 15:00] VITALS: BP 109/65
== END 2018-05-26 16:45 | disposition home or self-care (01) | DRG 178 ==
LOC: ER 03:55 → 5 NORTH 09:55
PROVIDERS: ADMIT Internal Medicine; ATTEND Internal Medicine
DX: J15.6 Pneumonia due to other Gram-negative bacteria (principal); F10.239 Alcohol dependence with withdrawal, unspecified; J18.1 Lobar pneumonia, unspecified organism; K29.70 Gastritis, unspecified, without bleeding; K21.9 Gastro-esophageal reflux disease without esophagitis; I10 Essential (primary) hypertension; N40.0 Benign prostatic hyperplasia without lower urinary tract symptoms; Z96.649 Presence of unspecified artificial hip joint; Z87.11 Personal history of peptic ulcer disease; Z96.659 Presence of unspecified artificial knee joint; Z82.49 Family history of ischemic heart disease and other diseases of the circulatory system; F17.210 Nicotine dependence, cigarettes, uncomplicated; M19.90 Unspecified osteoarthritis, unspecified site; K27.9 Peptic ulcer, site unspecified, unspecified as acute or chronic, without hemorrhage or perforation; K59.00 Constipation, unspecified
CPT/HCPCS: 36415; 36600; 71045; 74018; 74177; 80053; 82150; 82805; 82962; 83690; 84484; 85025; 85027; 87641; 96365; 96368; 96375; 96376; G0480; J0456; J0690; J0696; J2405; J3010; J7030; Q0162; Q9967; S0028; 97110; 97116; 97530; 97535; 99285-25

== ENCOUNTER 2019-01-27 21:07 | Emergency (ER) | payer OTHER ==
[~2019-01-27] VITALS: Ht 190.5 cm; Wt 88.5 kg
[~2019-01-27 21:07] MED LIST changes: +CEPH250C PO; +FAMO-63 PO; -GABA600T2 PO; +GABA600T7 PO; +HYDR-3164 PO; +OMEP20CA10 PO; -OMEP20CA9 PO; +ONDA4TAB7 PO
--- NOTE | 2019-01-27 21:25 | PHYS DOC ---
Past Medical History Past Medical History: Alcoholism, GERD, Hypertension, Pneumonia, UTI Additional Past Medical Histor: BPH (PAULA AVENDAÑO APRN) Past Surgical History: Hip Replacement, Tonsillectomy Additional Past Surgical Histo: RIGHT HIP SX, BILAT KNEE SX (PAULA AVENDAÑO APRN) Alcohol Use: Rarely Drug Use: None (PAULA AVENDAÑO APRN) Adult General Chief Complaint Chief Complaint: ABDOMINAL PAIN HPI HPI Patient is a 68 year old male with history of hypertension, alcoholism, who presents to the ED today complaining of nausea, vomiting, diarrhea, symptoms he states began "a couple days ago". Patient states he drank a case of Budweiser over the weekend. He states he has not drank anything since Saturday because of the nausea and vomiting. Denies any chest pain or shortness of breath. Denies any hematemesis or melena. Denies needing any help with alcohol abuse. He is also complaining of diffuse abdominal pain rated as mild described as cramping. (PAULA AVENDAÑO APRN) Review of Systems Review of Systems Constitutional: Denies fever or chills [] Eyes: Denies change in visual acuity, redness, or eye pain [] HENT: Denies nasal congestion or sore throat [] Respiratory: Denies cough or shortness of breath [] Cardiovascular: No additional information not addressed in HPI [] GI: Reports abdominal pain, nausea vomiting or diarrhea. Denies any hematemesis or melena. : Denies dysuria or hematuria [] Musculoskeletal: Denies back pain or joint pain [] Integument: Denies rash or skin lesions [] Neurologic: Denies headache, focal weakness or sensory changes [] All other systems were reviewed and found to be within normal limits, except as documented in this note. (PAULA AVENDAÑO APRN) Current Medications Current Medications Current Medications Medications (Trade) Dose Ordered Sig/Lio Start Time Stop Time Status Last Admin Dose Admin Famotidine (Pepcid Vial) 20 mg 1X ONCE 01/27/19 22:00 01/27/19 22:01 DC 01/27/19 21:41 20 MG Fentanyl Citrate (Fentanyl 2ml Vial) 50 mcg PRN Q15MIN PRN 01/27/19 21:30 01/28/19 21:29 01/27/19 21:41 50 MCG Info (CONTRAST GIVEN -- Rx MONITORING) 1 each PRN DAILY PRN 01/27/19 22:45 01/29/19 22:44 Iohexol (Omnipaque 300 Mg/ml) 60 ml 1X ONCE 01/27/19 23:00 01/27/19 23:01 DC 01/27/19 23:02 60 ML Lorazepam (Ativan Inj) 1 mg 1X ONCE 01/28/19 01:15 01/28/19 01:16 DC 01/28/19 01:26 1 MG Ondansetron HCl (Zofran) 4 mg 1X ONCE 01/27/19 22:00 01/27/19 22:01 DC 01/27/19 21:41 4 MG Prochlorperazine Edisylate (Compazine) 10 mg 1X ONCE 01/27/19 23:30 01/27/19 23:31 DC 01/27/19 23:50 10 MG Sodium Chloride 1,000 ml @ 1,000 mls/hr 1X ONCE 01/27/19 22:00 01/27/19 22:59 DC 01/27/19 21:39 1,000 MLS/HR (JENNIFER LAM MD) Allergies Allergies Allergies Coded Allergies Type Severity Reaction Last Updated Verified No Known Drug Allergies 02/24/15 No (JENNIFER LAM MD) Physical Exam Physical Exam Constitutional: Well developed, well nourished, no acute distress, non-toxic appearance. [] HENT: Normocephalic, atraumatic, bilateral external ears normal, oropharynx moist, no oral exudates, nose normal. [] Eyes: PERRLA, EOMI, conjunctiva normal, no discharge. [] Neck: Normal range of motion, no tenderness, supple, no stridor. [] Cardiovascular:Heart rate regular rhythm, no murmur [] Lungs & Thorax: Bilateral breath sounds clear to auscultation [] Abdomen: Patient has an emesis bag with emesis. Old healed surgical incision noted midline upper abdomen. Bowel sounds normal, soft, no tenderness, no masses, no pulsatile masses. [] Skin: Warm, dry, no erythema, no rash. [] Back: No tenderness, no CVA tenderness. [] Extremities: No tenderness, no cyanosis, no clubbing, ROM intact, no edema. [] Neurologic: Alert and oriented X 3, normal motor function, normal sensory function, no focal deficits noted. [] Psychologic: Affect normal, judgement normal, mood normal. [] (PAULA AVENDAÑO APRN) Current Patient Data Vital Signs Vital Signs Date Time Temp Pulse Resp B/P (MAP) Pulse Ox O2 Delivery O2 Flow Rate FiO2 01/27/19 21:41 95 01/27/19 21:07 98.3 101 18 190/91 (124) Room Air 98.3 (JENNIFER LAM MD) Lab Values Laboratory Tests Test 01/27/19 21:25 01/27/19 21:35 01/28/19 00:12 White Blood Count 11.1 x10^3/uL (4.0-11.0) H Red Blood Count 4.72 x10^6/uL (4.30-5.70) Hemoglobin 14.4 g/dL (13.0-17.5) Hematocrit 42.3 % (39.0-53.0) Mean Corpuscular Volume 90 fL (79-100) Mean Corpuscular Hemoglobin 31 pg (25-35) Mean Corpuscular Hemoglobin Concent 34 g/dL (31-37) Red Cell Distribution Width 14.0 % (11.5-14.5) Platelet Count 248 x10^3/uL (140-400) Neutrophils (%) (Auto) 85 % (31-73) H Lymphocytes (%) (Auto) 9 % (24-48) L Monocytes (%) (Auto) 7 % (0-9) Eosinophils (%) (Auto) 0 % (0-3) Basophils (%) (Auto) 0 % (0-3) Neutrophils # (Auto) 9.4 x10^3uL (1.8-7.7) H Lymphocytes # (Auto) 1.0 x10^3/uL (1.0-4.8) Monocytes # (Auto) 0.7 x10^3/uL (0.0-1.1) Eosinophils # (Auto) 0.0 x10^3/uL (0.0-0.7) Basophils # (Auto) 0.0 x10^3/uL (0.0-0.2) Prothrombin Time 12.2 SEC (11.7-14.0) Prothrombin Time INR 0.9 (0.8-1.1) Sodium Level 141 mmol/L (136-145) Potassium Level 4.3 mmol/L (3.5-5.1) Chloride Level 99 mmol/L (98-107) Carbon Dioxide Level 26 mmol/L (21-32) Anion Gap 16 (6-14) H Blood Urea Nitrogen 14 mg/dL (8-26) Creatinine 1.3 mg/dL (0.7-1.3) Estimated GFR (Cockcroft-Gault) 54.9 BUN/Creatinine Ratio 11 (6-20) Glucose Level 123 mg/dL (70-99) H Calcium Level 9.4 mg/dL (8.5-10.1) Magnesium Level 1.6 mg/dL (1.8-2.4) L Total Bilirubin 0.8 mg/dL (0.2-1.0) Aspartate Amino Transferase (AST) 18 U/L (15-37) Alanine Aminotransferase (ALT) 20 U/L (16-63) Alkaline Phosphatase 133 U/L (46-116) H Creatine Kinase 130 U/L (39-308) Creatine Kinase MB (Mass) 1.6 ng/mL (0.0-3.6) Creatine Kinase MB Relative Index 1.2 % (0-4) Troponin I Quantitative < 0.017 ng/mL (0.000-0.055) SC-Kru-S-Type Natriuretic Peptide 90 pg/mL (0-124) Total Protein 8.1 g/dL (6.4-8.2) Albumin 4.2 g/dL (3.4-5.0) Albumin/Globulin Ratio 1.1 (1.0-1.7) Lipase 78 U/L (73-393) Thyroid Stimulating Hormone (TSH) 0.847 uIU/mL (0.358-3.74) Ethyl Alcohol Level < 10 mg/dL (0-10) Urine Opiates Screen Pos (NEG) Urine Methadone Screen Neg (NEG) Urine Barbiturates Neg (NEG) Urine Phencyclidine Screen Neg (NEG) Urine Amphetamine/Methamphetamine Neg (NEG) Urine Benzodiazepines Screen Neg (NEG) Urine Cocaine Screen Neg (NEG) Urine Cannabinoids Screen Neg (NEG) Urine Ethyl Alcohol Pos (NEG) Urine Collection Type Unknown Urine Color Yellow Urine Clarity Clear Urine pH 7.5 Urine Specific [place] 1.015 Urine Protein Negative mg/dL (NEG-TRACE) Urine Glucose (UA) Negative mg/dL (NEG) Urine Ketones (Stick) Negative mg/dL (NEG) Urine Blood Negative (NEG) Urine Nitrite Negative (NEG) Urine Bilirubin Negative (NEG) Urine Urobilinogen Dipstick 1.0 mg/dL (0.2 mg/dL) Urine Leukocyte Esterase Trace (NEG) Urine RBC 1-2 /HPF (0-2) Urine WBC 1-4 /HPF (0-4) Urine Squamous Epithelial Cells Few /LPF Urine Bacteria 0 /HPF (0-FEW) Laboratory Tests 01/27/19 21:25 Laboratory Tests 01/27/19 21:25 (JENNIFER LAM MD) Lab Values Laboratory Tests Test 01/27/19 21:25 01/27/19 21:35 01/28/19 00:12 White Blood Count 11.1 x10^3/uL (4.0-11.0) H Red Blood Count 4.72 x10^6/uL (4.30-5.70) Hemoglobin 14.4 g/dL (13.0-17.5) Hematocrit 42.3 % (39.0-53.0) Mean Corpuscular Volume 90 fL (79-100) Mean Corpuscular Hemoglobin 31 pg (25-35) Mean Corpuscular Hemoglobin Concent 34 g/dL (31-37) Red Cell Distribution Width 14.0 % (11.5-14.5) Platelet Count 248 x10^3/uL (140-400) Neutrophils (%) (Auto) 85 % (31-73) H Lymphocytes (%) (Auto) 9 % (24-48) L Monocytes (%) (Auto) 7 % (0-9) Eosinophils (%) (Auto) 0 % (0-3) Basophils (%) (Auto) 0 % (0-3) Neutrophils # (Auto) 9.4 x10^3uL (1.8-7.7) H Lymphocytes # (Auto) 1.0 x10^3/uL (1.0-4.8) Monocytes # (Auto) 0.7 x10^3/uL (0.0-1.1) Eosinophils # (Auto) 0.0 x10^3/uL (0.0-0.7) Basophils # (Auto) 0.0 x10^3/uL (0.0-0.2) Prothrombin Time 12.2 SEC (11.7-14.0) Prothrombin Time INR 0.9 (0.8-1.1) Sodium Level 141 mmol/L (136-145) Potassium Level 4.3 mmol/L (3.5-5.1) Chloride Level 99 mmol/L (98-107) Carbon Dioxide Level 26 mmol/L (21-32) Anion Gap 16 (6-14) H Blood Urea Nitrogen 14 mg/dL (8-26) Creatinine 1.3 mg/dL (0.7-1.3) Estimated GFR (Cockcroft-Gault) 54.9 BUN/Creatinine Ratio 11 (6-20) Glucose Level 123 mg/dL (70-99) H Calcium Level 9.4 mg/dL (8.5-10.1) Magnesium Level 1.6 mg/dL (1.8-2.4) L Total Bilirubin 0.8 mg/dL (0.2-1.0) Aspartate Amino Transferase (AST) 18 U/L (15-37) Alanine Aminotransferase (ALT) 20 U/L (16-63) Alkaline Phosphatase 133 U/L (46-116) H Creatine Kinase 130 U/L (39-308) Creatine Kinase MB (Mass) 1.6 ng/mL (0.0-3.6) Creatine Kinase MB Relative Index 1.2 % (0-4) Troponin I Quantitative < 0.017 ng/mL (0.000-0.055) EH-Cuw-H-Type Natriuretic Peptide 90 pg/mL (0-124) Total Protein 8.1 g/dL (6.4-8.2) Albumin 4.2 g/dL (3.4-5.0) Albumin/Globulin Ratio 1.1 (1.0-1.7) Lipase 78 U/L (73-393) Thyroid Stimulating Hormone (TSH) 0.847 uIU/mL (0.358-3.74) Urine Opiates Screen Pos (NEG) Urine Methadone Screen Neg (NEG) Urine Barbiturates Neg (NEG) Urine Phencyclidine Screen Neg (NEG) Urine Amphetamine/Methamphetamine Neg (NEG) Urine Benzodiazepines Screen Neg (NEG) Urine Cocaine Screen Neg (NEG) Urine Cannabinoids Screen Neg (NEG) Urine Ethyl Alcohol Pos (NEG) Urine Collection Type Unknown Urine Color Yellow Urine Clarity Clear Urine pH 7.5 Urine Specific [place] 1.015 Urine Protein Negative mg/dL (NEG-TRACE) Urine Glucose (UA) Negative mg/dL (NEG) Urine Ketones (Stick) Negative mg/dL (NEG) Urine Blood Negative (NEG) Urine Nitrite Negative (NEG) Urine Bilirubin Negative (NEG) Urine Urobilinogen Dipstick 1.0 mg/dL (0.2 mg/dL) Urine Leukocyte Esterase Trace (NEG) Urine RBC 1-2 /HPF (0-2) Urine WBC 1-4 /HPF (0-4) Urine Squamous Epithelial Cells Few /LPF Urine Bacteria 0 /HPF (0-FEW) Laboratory Tests 01/27/19 21:25 Laboratory Tests 01/27/19 21:25 (PAULA AVENDAÑO APRN) EKG EKG 21:[address] Lam sinus rhythm heart rate 93 no STEMI[] (PAULA AVENDAÑO APRN) Radiology/Procedures Radiology/Procedures []PROCEDURE: CT ABD PELV W/ IV CONTRST ONLY CT ABD PELV W/ IV CONTRST ONLY Indication: Abdominal pain, EtOH abuse Technique: Postcontrast CT imaging was performed of the abdomen pelvis, multiplanar reconstruction images submitted. No oral contrast was given. One or more of the following individualized dose reduction techniques were utilized for this examination: 1. Automated exposure control 2. Adjustment of the mA and/or kV according to patient size 3. Use of iterative reconstruction technique. Comparison: May 18, 2018 Findings: There is no pleural fluid of the visualized lung bases. There is again elevation of the right hemidiaphragm. There is again degree of bronchiectasis of the right lung base. No new focal abnormality is identified of the liver, spleen, pancreas. There are splenic granulomas. Gallbladder is present without obvious intraluminal abnormality by CT. There is prominent coronary calcification. There is again some strandy change of bilateral perinephric fat. Both kidneys enhance, no significant hydronephrosis. There is again parenchymal calcification of the left kidney about 0.5 cm. There is again small exophytic lesion of the superior left kidney about 0.7 cm otherwise too small to accurately characterize. There is also 1.5 cm exophytic lesion of the inferior left kidney as seen previously, density measurements not of a simple cyst. There is atherosclerotic calcification of the abdominal aorta as well as iliac arteries bilaterally. There is distention of urinary bladder. Evaluation of bowel is limited without oral contrast. There is no bowel dilatation, free fluid, free air. Appendix caliber is upper limits of normal 0.6 cm without adjacent inflammatory-type change. There is dynamic compression nail of the proximal right femur. There is degenerative disc disease greatest at L5-S1. IMPRESSION: 1. No significant inflammatory type change is identified, no evidence of acute appendicitis. There is distention of the urinary bladder. 2. There is coronary calcification. 3. There is again small exophytic lesion of the superior left kidney too small to accurately characterize. There is also exophytic lesion of the inferior left kidney or within attention on future follow-up in 9-12 months may be beneficial given density characteristics. Electronically signed by: Clarke Craig MD (01/27/2019 11:57 PM) [facility] DICTATED and SIGNED BY: CLARKE CRAIG MD DATE: 01/27/19 6020 (PAULA AVENDAÑO APRN) Course & Med Decision Making Course & Med Decision Making Pertinent Labs and Imaging studies reviewed. (See chart for details) This is a 68-year-old male patient who presents to the ED today complaining of nausea, vomiting, diarrhea, abdominal pain, symptoms began roughly on Saturday. His alcoholic, he states he spent the whole weekend drinking one case of Budweiser until Saturday when he stopped because of his symptoms. Denies any fever. CBC with a WBC of 11.1 with a left shift, CMP with glucose of 123, anion gap of 16, patient was given IV fluids in the ED. Given Zofran, was still complaining of nausea, given Compazine. CT of the abdomen and pelvic was noted for distended bladder, small lesion on the left kidney with the recommendation for follow-up in 9-12 months. Care transferred to [facility] pending (PAULA AVENDAÑO APRN) Course & Med Decision Making U/A NEGATIVE ESSENTIALLY.II REEVAL PT, NO SIGNIFICANT ABDO TENDERNESS NOTED. LABS OVERALL STABLE, MILD LEUKOCYTOSIS COUDL BE FROM VOMITING. MY READ CXR NO PNA. CT SCAN REVIEWED. LIPASE WAS NORMAL. PREVIOUS HX OF DUODENITIS NOTED. PT PRESCRIBED ANTIEMETIC AND ANTACID, WILL D/C IN STABLE CONDITION. PT HAD SOME CONCERNS TO GO HOME BUT NO OBVIOUS INPATIENT INDICATION AT THIS TIME. (JENNIFER LAM MD) Dragon Disclaimer Dragon Disclaimer This electronic medical record was generated, in whole or in part, using a voice recognition dictation system. (PAULA AVENDAÑO APRN) Departure Departure Impression: Primary Impression: Alcohol dependence Additional Impression: Vomiting and diarrhea Disposition: HOME, SELF-CARE Condition: STABLE Referrals: NO PCP (PCP) Scripts Omeprazole (OMEPRAZOLE) 40 Mg Capsule.dr 1 CAP PO DAILY, #30 CAP 0 Refills Prov: JENNIFER LAM MD 01/28/19 Prochlorperazine Maleate (Compazine) 5 Mg Tablet 5 MG PO TID PRN for NAUSEA/VOMITING, #15 TAB Prov: JENNIFER LAM MD 01/28/19 Problem Qualifiers Primary Impression: Alcohol dependence Substance use status: unspecified alcohol-induced disorder Qualified Codes: F10.29 - Alcohol dependence with unspecified alcohol-induced disorder PAULA AVENDAÑO APRN Jan 27, 2019 21:24 JENNIFER LAM MD Jan 28, 2019 03:05
[2019-01-27] MEDS ORDERED: fentaNYL PF VIAL 100 MCG/2 ML VIAL IV PRN (21:30)
[2019-01-27 21:39] LABS: BASO % 0 % (0-3); EOS % 0 % (0-3); HEMATOCRIT 42.3 % (39.0-53.0); HEMOGLOBIN 14.4 g/dL (13.0-17.5); LYMPH % 9 % (24-48); MEAN CORPUSCULAR HEMOGLOBIN 31 pg (25-35); MEAN CORPUSCULAR HGB CONC 34 g/dL (31-37); MEAN CORPUSCULAR VOLUME 90 fL (79-100); MONO # 0.7 x10^3/uL (0.0-1.1); MONO % 7 % (0-9); NEUT # 9.4 x10^3uL (1.8-7.7); NEUT % 85 % (31-73); PLATELET COUNT 248 x10^3/uL (140-400); RED BLOOD COUNT 4.72 x10^6/uL (4.30-5.70); WHITE BLOOD COUNT 11.1 x10^3/uL (4.0-11.0)
[2019-01-27 21:47] LABS: PROTHROMBIN TIME PATIENT 12.2 SEC (11.7-14.0)
[2019-01-27 21:56] LABS: CALCIUM 9.4 mg/dL (8.5-10.1); CREATININE 1.3 mg/dL (0.7-1.3); GFR 54.9; POTASSIUM 4.3 mmol/L (3.5-5.1)
[2019-01-27] MEDS ORDERED: IV NORMAL SALINE 1000ML BAG 1,000 ML IV ONE (22:00)
[2019-01-27] MEDS ORDERED: ONDANSETRON PF 4 MG/2 ML VIAL. IV ONE (22:00)
[2019-01-27] MEDS ORDERED: FAMOTIDINE 20 MG/2 ML VIAL IVP ONE (22:00)
[2019-01-27 22:01] LABS: ALBUMIN 4.2 g/dL (3.4-5.0); ALBUMIN/GLOBULIN RATIO 1.1 (1.0-1.7); MAGNESIUM 1.6 mg/dL (1.8-2.4); TOTAL BILIRUBIN 0.8 mg/dL (0.2-1.0); TOTAL PROTEIN 8.1 g/dL (6.4-8.2)
[2019-01-27 22:04] LABS: AMPHETAMINE/METHAMPHETAMINE NEG (NEG); BARBITURATES NEG (NEG); BENZODIAZEPINES NEG (NEG); CANNABINOIDS NEG (NEG); COCAINE NEG (NEG); METHADONE NEG (NEG); OPIATES POS (NEG); PHENCYCLIDINE NEG (NEG)
[2019-01-27] MEDS ORDERED: CONTRAST GIVEN. MC PRN (22:45)
[2019-01-27] MEDS ORDERED: IOHEXOL 300 MG/ML 100ML VIAL. IV ONE (23:00)
[2019-01-27] MEDS ORDERED: PROCHLORPERAZINE 10 MG/2 ML VIAL. IV ONE (23:30)
--- NOTE | 2019-01-28 | RAD ---
CT ABD PELV W/ IV CONTRST ONLY Indication: Abdominal pain, EtOH abuse Technique: Postcontrast CT imaging was performed of the abdomen pelvis, multiplanar reconstruction images submitted. No oral contrast was given. One or more of the following individualized dose reduction techniques were utilized for this examination: 1. Automated exposure control 2. Adjustment of the mA and/or kV according to patient size 3. Use of iterative reconstruction technique. Comparison: May 18, 2018 Findings: There is no pleural fluid of the visualized lung bases. There is again elevation of the right hemidiaphragm. There is again degree of bronchiectasis of the right lung base. No new focal abnormality is identified of the liver, spleen, pancreas. There are splenic granulomas. Gallbladder is present without obvious intraluminal abnormality by CT. There is prominent coronary calcification. There is again some strandy change of bilateral perinephric fat. Both kidneys enhance, no significant hydronephrosis. There is again parenchymal calcification of the left kidney about 0.5 cm. There is again small exophytic lesion of the superior left kidney about 0.7 cm otherwise too small to accurately characterize. There is also 1.5 cm exophytic lesion of the inferior left kidney as seen previously, density measurements not of a simple cyst. There is atherosclerotic calcification of the abdominal aorta as well as iliac arteries bilaterally. There is distention of urinary bladder. Evaluation of bowel is limited without oral contrast. There is no bowel dilatation, free fluid, free air. Appendix caliber is upper limits of normal 0.6 cm without adjacent inflammatory-type change. There is dynamic compression nail of the proximal right femur. There is degenerative disc disease greatest at L5-S1. IMPRESSION: 1. No significant inflammatory type change is identified, no evidence of acute appendicitis. There is distention of the urinary bladder. 2. There is coronary calcification. 3. There is again small exophytic lesion of the superior left kidney too small to accurately characterize. There is also exophytic lesion of the inferior left kidney or within attention on future follow-up in 9-12 months may be beneficial given density characteristics. Electronically signed by: Eh Apple MD (01/27/2019 11:57 PM) [facility]
[2019-01-28 00:22] LABS: BILIRUBIN,URINE NEGATIVE (NEG); CLARITY,URINE CLEAR; COLOR,URINE YELLOW; NITRITE,URINE NEGATIVE (NEG); PH,URINE 7.5; PROTEIN,URINE NEGATIVE (NEG-TRACE)
[2019-01-28 00:53] LABS: BACTERIA,URINE 0 /HPF (0-FEW); SQUAMOUS EPITHELIAL CELL,UR FEW /LPF
[2019-01-28] MEDS ORDERED: PROC5TAB34 PO (01:29)
[2019-01-28] MEDS ORDERED: OMEP40CA5 PO (02:11)
[2019-01-28 03:14] VITALS: BP 155/100
--- NOTE | 2019-01-28 06:05 | EKG ---
[facility] [address] [place] [address] Test Date: 2019-01-27 Test Time: 21:21:25 Pat Name: ZHOU WICK Department: Room: Gender: M [employer]: : [id number] Requested By: PAULA AVENDAÑO Order Number: [id number] Reading MD: Measurements Intervals [place] Rate: 93 P: 33 CA: 158 QRS: -26 QRSD: 82 T: 25 QT: 360 QTc: 450 Interpretive Statements SINUS RHYTHM LEFTWARD AXIS QRS(T) CONTOUR ABNORMALITY CONSIDER ANTEROSEPTAL MYOCARDIAL DAMAGE CONSISTENT WITH INFERIOR INFARCT AGE UNDETERMINED ABNORMAL ECG RI6.01 Unconfirmed report No previous ECG available for comparison
--- NOTE | 2019-01-28 06:48 | RAD ---
Chest AP portable at 2110: Reason for examination: Short of breath. Comparison is made to previous study dated 05/18/2018. The heart size is normal. Mediastinum is unremarkable. There continues to be elevation of the right hemidiaphragm which is unchanged. No acute congestion, infiltrates or pleural effusions are seen. No acute bony abnormalities are evident. IMPRESSION: Persistent elevation of the right hemidiaphragm. No acute congestion or infiltrates. Electronically signed by: Makenna Malone MD (01/28/2019 6:45 AM) [id number]
== END 2019-01-28 03:40 | disposition home or self-care (01) ==
LOC: ER 21:07
DX: R11.2 Nausea with vomiting, unspecified (principal); R19.7 Diarrhea, unspecified; F10.29 Alcohol dependence with unspecified alcohol-induced disorder; Y90.0 Blood alcohol level of less than 20 mg/100 ml; R10.84 Generalized abdominal pain; K21.9 Gastro-esophageal reflux disease without esophagitis; I10 Essential (primary) hypertension; Z87.440 Personal history of urinary (tract) infections; N40.0 Benign prostatic hyperplasia without lower urinary tract symptoms
CPT/HCPCS: 36415; 71045; 74177; 80053; 80307; 81001; 82553; 83690; 83735; 83880; 84443; 84484; 85025; 85610; 87086; 93005; 96361; 96374; 96375; 99285; G0480; J0780; J2060; J2405; J3010; J3490; J7030; Q9967